=== PATIENT | male | born 1960 | race Caucasian/White ===

== ENCOUNTER 2017-08-28 22:58 | Inpatient (IN) | payer OTHER ==
--- OUTSIDE RECORDS SUMMARY | 2017-08-28 23:01 | XMS REPORT | Clinical Summary ---
:1960 Author Organization [facility] Address [address] [place] [address] Care Team Providers Name Role Phone Gigi Andino MD Primary Care Provider Allergies Active Allergy Reactions Severity Noted Date Comments Iodine 2016 Levofloxacin 2016 Morphine 2016 Current Medications Prescription Sig. Disp. Refills Start Date End Date Status furosemide (LASIX) TK 1 T PO 0 05/05/2016 Active 40 mg tablet QAM potassium chloride TK 1 T PO QD 1 05/05/2016 Active (K-DUR) 20 MEQ CR tablet tamsulosin (FLOMAX) Take 0.4 mg Active 0.4 mg by mouth capsule,extended daily. release 24hr ipratropium SPRAY 2 0 10/07/2016 Active (ATROVENT) 0.06 % SPRAYS IEN nasal spray TID levETIRAcetam TAKE 1 60 tablet 0 04/27/2017 Active (KEPPRA) 1000 MG TABLET(1000 tablet MG) BY MOUTH TWICE DAILY lamoTRIgine TAKE 1 60 tablet 0 05/29/2017 Active (LaMICtal) 25 MG TABLET(25 tablet MG) BY MOUTH TWICE DAILY lamoTRIgine TAKE 1 180 tablet 3 06/03/2017 Active (LaMICtal) 100 MG TABLET BY tablet MOUTH TWICE DAILY baclofen (LIORESAL) TAKE 1 60 tablet 2 06/30/2017 Active 10 MG tablet TABLET BY MOUTH TWICE DAILY NEEDED lamoTRIgine TAKE 1 60 tablet 4 07/28/2017 Active (LaMICtal) 25 MG TABLET BY tablet MOUTH TWICE DAILY lamoTRIgine TAKE 1 60 tablet 0 04/19/2016 10/15/2016 Discontinued (LaMICtal) 100 MG TABLET BY tablet MOUTH TWICE DAILY lamoTRIgine TAKE 1 60 tablet 0 07/02/2016 10/15/2016 Discontinued (LaMICtal) 25 MG TABLET BY tablet MOUTH TWICE DAILY donepezil (ARICEPT) Take 1 30 tablet 11 07/22/2016 02/27/2017 Discontinued 5 MG tablet tablet (5 mg total) by mouth nightly. levETIRAcetam TAKE 1 60 tablet 0 08/04/2016 09/03/2016 Discontinued (KEPPRA) 1000 MG TABLET BY tablet MOUTH TWICE DAILY baclofen (LIORESAL) TAKE 1 60 tablet 0 08/18/2016 10/15/2016 Discontinued 10 MG tablet TABLET BY MOUTH TWICE DAILY NEEDED baclofen (LIORESAL) TAKE 1 60 tablet 0 08/22/2016 09/18/2016 Discontinued 10 MG tablet TABLET BY MOUTH TWICE DAILY NEEDED levETIRAcetam TAKE 1 60 tablet 0 09/03/2016 10/01/2016 Discontinued (KEPPRA) 1000 MG TABLET BY tablet MOUTH TWICE DAILY baclofen (LIORESAL) TAKE 1 60 tablet 0 09/18/2016 10/16/2016 Discontinued 10 MG tablet TABLET BY MOUTH TWICE DAILY NEEDED levETIRAcetam TAKE 1 60 tablet 0 10/01/2016 10/15/2016 Discontinued (KEPPRA) 1000 MG TABLET BY tablet MOUTH TWICE DAILY lamoTRIgine Take 1 60 tablet 5 10/15/2016 11/10/2016 Discontinued (LaMICtal) 100 MG tablet (100 tablet mg total) by mouth 2 (two) times a day. lamoTRIgine Take 1 60 tablet 5 10/15/2016 03/20/2017 Discontinued (LaMICtal) 25 MG tablet (25 tablet mg total) by mouth 2 (two) times a day. levETIRAcetam Take 1 60 tablet 5 10/15/2016 04/02/2017 Discontinued (KEPPRA) 1000 MG tablet tablet (1,000 mg total) by mouth 2 (two) times a day. baclofen (LIORESAL) TAKE 1 60 tablet 0 10/16/2016 11/13/2016 Discontinued 10 MG tablet TABLET BY MOUTH TWICE DAILY NEEDED lamoTRIgine TAKE 1 60 tablet 0 11/11/2016 12/08/2016 Discontinued (LaMICtal) 100 MG TABLET BY tablet MOUTH TWICE DAILY baclofen (LIORESAL) TAKE 1 60 tablet 0 11/13/2016 12/10/2016 Discontinued 10 MG tablet TABLET BY MOUTH TWICE DAILY NEEDED lamoTRIgine TAKE 1 60 tablet 0 12/09/2016 01/05/2017 Discontinued (LaMICtal) 100 MG TABLET BY tablet MOUTH TWICE DAILY baclofen (LIORESAL) TAKE 1 60 tablet 0 12/10/2016 01/08/2017 Discontinued 10 MG tablet TABLET BY MOUTH TWICE DAILY NEEDED lamoTRIgine TAKE 1 60 tablet 0 01/06/2017 02/06/2017 Discontinued (LaMICtal) 100 MG TABLET BY tablet MOUTH TWICE DAILY baclofen (LIORESAL) TAKE 1 60 tablet 0 01/09/2017 02/07/2017 Discontinued 10 MG tablet TABLET BY MOUTH TWICE DAILY NEEDED lamoTRIgine TAKE 1 60 tablet 0 02/06/2017 03/07/2017 Discontinued (LaMICtal) 100 MG TABLET BY tablet MOUTH TWICE DAILY baclofen (LIORESAL) TAKE 1 60 tablet 0 02/09/2017 03/09/2017 Discontinued 10 MG tablet TABLET BY MOUTH TWICE DAILY NEEDED lamoTRIgine TAKE 1 60 tablet 0 03/07/2017 04/07/2017 Discontinued (LaMICtal) 100 MG TABLET BY tablet MOUTH TWICE DAILY baclofen (LIORESAL) TAKE 1 60 tablet 0 03/09/2017 04/06/2017 Discontinued 10 MG tablet TABLET BY MOUTH TWICE DAILY NEEDED lamoTRIgine TAKE 1 60 tablet 0 03/20/2017 05/29/2017 Discontinued (LaMICtal) 25 MG TABLET(25 tablet MG) BY MOUTH TWICE DAILY levETIRAcetam TAKE 1 60 tablet 0 04/02/2017 04/27/2017 Discontinued (KEPPRA) 1000 MG TABLET(1000 tablet MG) BY MOUTH TWICE DAILY baclofen (LIORESAL) TAKE 1 60 tablet 0 04/07/2017 05/04/2017 Discontinued 10 MG tablet TABLET BY MOUTH TWICE DAILY NEEDED lamoTRIgine TAKE 1 60 tablet 0 04/07/2017 05/05/2017 Discontinued (LaMICtal) 100 MG TABLET BY tablet MOUTH TWICE DAILY baclofen (LIORESAL) TAKE 1 60 tablet 0 05/04/2017 06/01/2017 Discontinued 10 MG tablet TABLET BY MOUTH TWICE DAILY NEEDED lamoTRIgine TAKE 1 60 tablet 0 05/05/2017 06/03/2017 Discontinued (LaMICtal) 100 MG TABLET BY tablet MOUTH TWICE DAILY baclofen (LIORESAL) TAKE 1 60 tablet 0 06/01/2017 06/30/2017 Discontinued 10 MG tablet TABLET BY MOUTH TWICE DAILY NEEDED Hospital, Clinic, or Other Ordered Dose Route Frequency Start Date End Date Status Facility Administered Medication onabotulinumtoxinA (BOTOX) 600 Units IM Once 10/15/2016 10/15/2016 Ended injection 600 UnitsIndications: Spastic hemiplegia affecting right dominant side onabotulinumtoxinA (BOTOX) 600 Units IM Once 01/14/2017 01/14/2017 Ended injection 600 UnitsIndications: Spastic hemiplegia affecting right dominant side onabotulinumtoxinA (BOTOX) 400 Units IM Once 04/15/2017 04/15/2017 Ended injection 400 UnitsIndications: Spasticity Active Problems Problem Noted Date Localization-related epilepsy 2016 Spasm of muscle 2016 Spastic hemiplegia affecting right dominant side 2016 Intracranial hemorrhage 2016 Encounters Date Type Specialty Care Team Description 08/28/2017 Emergency Emergency Medicine 08/20/2017 Orders Only Neurology Chano Miramontes, Spastic hemiplegia of MD 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 intraparenchymal hemorrhage of brain (Primary Dx) 08/13/2017 Telephone Neurology Chano Miramontes, Spastic hemiplegia of MD 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 intraparenchymal hemorrhage of brain (Primary Dx) 07/28/2017 Refill Chano Valle MD 06/30/2017 Refill Chano Valle MD 06/03/2017 Refill Chano Valle MD 06/01/2017 Refill Cahno Valle MD 05/29/2017 Refill Chano Valle MD 05/05/2017 Refill Chano Valle MD 05/04/2017 Refill Chano Valle MD 04/27/2017 Refill Chano Valle MD 04/15/2017 Procedure visit Neurology Chano Miramontes, Spasticity (Primary Dx); Spastic hemiplegia of 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 intraparenchymal hemorrhage of brain; Localization-related epilepsy; Spasm of muscle; Intracranial hemorrhage 04/07/2017 Refill Chano Valle MD 04/06/2017 Refill Neurology Chano Miramontes MD 04/02/2017 Refill Neurology Chano Miramontes MD 03/20/2017 Refill Neurology Chano Miramontes MD 03/09/2017 Refill Neurology Chano Miramontes MD 03/07/2017 Refill Neurology Chano Miramontes MD 02/27/2017 Telephone Neurology Oksana Reynoso MA 02/07/2017 Refill Neurology Chano Miramontes MD 02/06/2017 Refill Neurology Chano Miramontes MD 01/14/2017 Procedure visit Neurology Chano Miramontes, Spastic hemiplegia affecting right dominant side (Primary Dx); Localization-related epilepsy; Spasm of muscle; Intracranial hemorrhage 01/08/2017 Refill Neurology Chano Miramontes MD 01/05/2017 Refill Neurology Chano Miramontes MD 12/10/2016 Refill Neurology Chano Miramontes MD 12/08/2016 Refill Neurology Chano Miramontes MD 11/13/2016 Refill Neurology Chano Miramontes MD 11/10/2016 Refill Neurology Chano Miramontes MD 10/16/2016 Refill Neurology Chano Miramontes MD 10/15/2016 Procedure visit Neurology Chano Miramontes, Spastic hemiplegia affecting right dominant side (Primary Dx); Spasm of muscle; Intracranial hemorrhage; Localization-related epilepsy 10/01/2016 Refill Neurology Chano Miramontes MD 09/18/2016 Refill Neurology Chano Miramontes MD 09/03/2016 Refill Neurology Chano Miramontes MD after 08/27/2016 Family History Medical History Relation Name Comments Diabetes Mother Relation Name Status Comments Mother Social History Tobacco Use Types Packs/Day Years Used Date Former Smoker Cigarettes Quit: 2005 Alcohol Use Drinks/Week oz/Week Comments No Sex Assigned at Date Recorded Not on file Last Filed Vital Signs Vital Sign Reading Time Taken Blood Pressure 116/70 08/28/2017 6:32 PM CDT Pulse 107 08/28/2017 6:32 PM CDT Temperature 37.2 C (99 F) 08/28/2017 6:32 PM CDT Respiratory Rate 20 08/28/2017 6:32 PM CDT Oxygen Saturation 95% 08/28/2017 6:32 PM CDT Inhaled Oxygen Concentration - - Weight - - Height 182.9 cm (6') 08/28/2017 6:28 PM CDT Body Mass Index - - Plan of Treatment Health Maintenance Due Date Last Done Comments COLONOSCOPY 2008 INFLUENZA VACCINE 12/31/2016 Procedures Procedure Name Priority Date/Time Associated Diagnosis Comments BOTULINUM TOXIN Routine 04/15/2017 3:36 PM Spasticity INJECTION DBA BOTULINUM TOXIN Routine 01/14/2017 10:10 AM Spastic hemiplegia INJECTION CDT affecting right dominant side BOTULINUM TOXIN Routine 10/15/2016 10:33 AM Spastic hemiplegia INJECTION CDT affecting right dominant side after 08/27/2016 Results Toxin Injection (04/15/2017 3:36 PM)Toxin Injection (01/14/2017 10:10 AM)Toxin Injection (10/15/2016 10:33 AM)after 08/27/2016 Insurance Payer Benefit Plan / Group Subscriber ID Type Phone Address AETNA AETNA HMO,POS,EPO, MC/EC xxxxxxxxxx HMO [phone] [place] [address]
[2017-08-29 00:32] LABS: Absolute Lymphocytes (CBC) 1.1 K/uL (0.7-4.9); Absolute Monocytes 1.7 K/uL (0.1-1.3); Absolute Neutrophil 14.5 K/uL (1.8-8.0); Basophils % 0.6 % (0-1.3); Eosinophils % 0.1 % (0-4.4); Hematocrit 50.2 % (39.6-49.0); Lymphocytes % 6.5 % (15.3-44.8); MCV 84.3 fL (80-100); MPV 9.9 fL (7.6-11.3); Monocytes % 9.6 % (3.3-12.3); RBC Red Blood Cell Count 5.95 M/uL (4.33-5.43)
[2017-08-29 00:38] LABS: Glomerular Filtration Rate > 60 mL/min (>60)
[2017-08-29 00:41] LABS: Bicarbonate 25 mEq/L (21-31); Glucose Level 131 mg/dL (65-120); Lipase 16 U/L (22-51); Potassium 3.4 mEq/L (3.6-5.0); Sodium Level 135 mEq/L (135-145)
[2017-08-29 00:48] LABS: ALT/SGPT 17 IU/L (10-60); AST/SGOT 18 IU/L (10-42); Albumin 4.3 g/dL (3.2-5.5); Alkaline Phosphatase 44 IU/L (42-121); Amylase Level 35 U/L (28-100); BUN Blood Urea Nitrogen 12 mg/dL (6-20); Bilirubin Direct 0.4 mg/dL (0-0.2); Bilirubin Total 2.1 mg/dL (0.3-1.2); Glomerular Filtration Rate > 90 mL/min (=/>90); Protein, Total 7.4 g/dL (6.0-8.3)
[2017-08-29] MEDS ORDERED: NA CHLORIDE 0.9% 1,000 ML ONE (01:35)
[2017-08-29 01:59] LABS: Blood Morphology Comment NOT SEEN (NOT SEEN); Platelet Estimate ADEQ
--- NOTE | 2017-08-29 02:18 | EDPHYS ---
Physician Documentation [facility] Name: Javier Barragan Sr Age: 57 yrs Sex: Male : 1960 Arrival Date: 08/28/2017 Time: 23:02 Bed 28 Private MD: Gigi Andino V ED Physician Ori Faulkner HPI: 08/28 23:20 This 57 yrs old Male presents to ER via Wheelchair with complaints of cp Abdominal Pain. 23:20 The patient presents with abdominal pain that is diffuse. Onset: The symptoms/episode cp began/occurred at an unknown time. The symptoms do not radiate. Associated signs and symptoms: Pertinent negatives: blood in stools, chest pain, fever, vomiting. The patient has been recently seen by a physician: Dr. Andino with similar presenting complaints, and apparently given a diagnosis of gallstones, CT scan was done, and was sent to the [facility] Emergency Department for further evaluation. Historical: - Allergies: 23:12 Cephalexin Monohydrate; bb 23:12 Iodine; bb 23:12 Levofloxacin; bb 23:12 Morphine; bb - Home Meds: 23:12 baclofen 10 mg Oral tab 1 tab twice a day [Active]; Dexilant 30 mg Oral CpDB 1 cap once bb daily [Active]; ipratropium bromide 0.06 % nasal spry [Active]; lamotrigine 25 mg Oral TChD 1 tab 2 times per day [Active]; levetiracetam 1,000 mg Oral tab 1 tab every 12 hours [Active]; potassium chloride 20 mEq Oral TbER 1 tab once daily [Active]; - PMHx: 23:12 CVA; Hernia; Seizures; bb - Immunization history:: Pneumococcal vaccine status is unknown, Flu vaccine status is unknown. - Social history:: Smoking status: Patient/guardian denies using tobacco. ROS: 23:25 Constitutional: Negative for body aches, chills, fever, poor PO intake. cp 23:25 Eyes: Negative for injury, pain, redness, and discharge. cp 23:25 ENT: Negative for drainage from ear(s), ear pain, sore throat, difficulty swallowing, difficulty handling secretions. 23:25 Cardiovascular: Negative for chest pain, edema, palpitations. 23:25 Respiratory: Negative for cough, shortness of breath, wheezing. 23:25 Abdomen/GI: Positive for abdominal pain, Negative for vomiting, diarrhea, constipation, black/tarry stool, rectal bleeding. 23:25 Back: Negative for pain at rest, pain with movement, radiated pain. 23:25 Skin: Negative for cellulitis, rash. 23:25 Neuro: Negative for altered mental status, headache, weakness. 23:25 All other systems are negative. Exam: 23:33 Constitutional: The patient appears in no acute distress, alert, awake, cp non-diaphoretic, non-toxic, well developed, well nourished, obese. 23:33 Head/Face: Normocephalic, atraumatic. cp 23:33 Eyes: Periorbital structures: appear normal, Pupils: equal, round, and reactive to cp light and accomodation, Conjunctiva: normal, no exudate, no injection, Sclera: no appreciated abnormality, Lids and lashes: appear normal, bilaterally. 23:33 ENT: External ear(s): are unremarkable, Ear canal(s): are normal, clear, TM's: cp dullness, is not appreciated, bilaterally, Nose: is normal, Mouth: Lips: moist, Oral mucosa: pink and intact, moist, Posterior pharynx: is normal, airway is patent, no erythema, no exudate, Voice: is normal. 23:33 Neck: External neck: is normal, ROM/movement: is normal, is supple, without pain, no range of motions limitations, no meningismus, no nuchal rigidity. 23:33 Chest/axilla: Inspection: normal, Palpation: is normal, no crepitus, no tenderness. 23:33 Cardiovascular: Rate: tachycardic, Rhythm: regular, Pulses: Pulses are 2+ in right radial artery and left radial artery. JVD: is not appreciated. 23:33 Respiratory: the patient does not display signs of respiratory distress, Respirations: normal, no use of accessory muscles, no retractions, no splinting, no tachypnea, labored breathing, is not present, Breath sounds: are clear throughout, no decreased breath sounds, no stridor, no wheezing. 23:33 Abdomen/GI: Inspection: obese Bowel sounds: active, all quadrants, Palpation: soft, in all quadrants, mild abdominal tenderness, in all quadrants, rebound tenderness, is not appreciated, voluntary guarding, is not appreciated, involuntary guarding, is not appreciated. 23:33 Back: CVA tenderness, is absent. 23:33 Skin: cellulitis, is not appreciated, no rash present. 08/29 00:35 ECG was reviewed by the Attending Physician. Vital Signs: 08/28 23:12 BP 116 / 79; Pulse 103; Resp 18 S; Temp 99.7(O); Pulse Ox 96% on R/A; Weight 117.93 kg bb (R); Height 6 ft. 0 in. (182.88 cm) (R); Pain 9/10; 08/29 01:21 BP 136 / 77; Pulse 99; Resp 17; Pulse Ox 94% on R/A; rk2 03:37 BP 130 / 80; Pulse 98; Resp 17; Pulse Ox 94% on R/A; rk2 08/28 23:12 Body Mass Index 35.26 (117.93 kg, 182.88 cm) bb MDM: 08/28 23:17 Patient medically screened. 08/29 00:00 Differential diagnosis: cholecystitis, Cholelithiasis, diverticulitis, gastritis, cp pancreatitis, Peptic Ulcer Disease, Perf. Duodenal Ulcer, Perf. Gastric Ulcer, Peritonitis, Ureterolithiasis, urinary tract infection. 02:15 Data reviewed: vital signs, nurses notes, lab test result(s), EKG, radiologic studies, cp ultrasound. 02:15 Test interpretation: by ED physician or midlevel provider: ECG. Response to treatment: cp the patient's symptoms have mildly improved after treatment. 08/28 23:30 Order name: Amylase, Serum; Complete Time: 00:51 08/28 23:30 Order name: Basic Metabolic Panel; Complete Time: 00:51 08/29 00:43 Interpretation: Normal except: K 3.4; CL 99; GLUC 131. 08/28 23:30 Order name: CBC with Diff; Complete Time: 02:11 08/29 02:11 Interpretation: Normal except: WBC 17.4; RBC 5.95; HCT 50.2; BLESSING% 83.2; LYM% 6.5; NEUT cp A 14.5. 08/28 23:30 Order name: Creatinine for Radiology; Complete Time: 00:39 08/29 00:39 Interpretation: Reviewed. 08/28 23:30 Order name: Hepatic Function; Complete Time: 00:51 cp 08/29 00:51 Interpretation: Normal except: BILIT 2.1; BILID 0.4. 08/28 23:30 Order name: Lipase; Complete Time: 00:51 cp 08/29 00:43 Interpretation: LIP 16; Reviewed. 08/28 23:24 Order name: US Abdomen Limited: RUQ 08/28 23:30 Order name: Urine Microscopic Only 08/29 00:48 Order name: CXR XRAY 08/29 00:55 Order name: Manual Differential; Complete Time: 02:11 EDMS 08/29 02:11 Interpretation: Normal except: BANDS [F] 4; LYM 4. 08/29 02:46 Order name: Blood Culture Adult (2) 08/28 23:30 Order name: IV Saline Lock; Complete Time: 00:09 08/28 23:30 Order name: Labs collected and sent; Complete Time: 00:09 08/28 23:30 Order name: Urine Dipstick-Ancillary (obtain specimen) 08/28 23:30 Order name: EKG; Complete Time: 23:30 08/28 23:30 Order name: EKG - Nurse/Tech; Complete Time: 00:35 cp 08/29 00:47 Order name: NPO; Complete Time: 00:48 cp 08/29 02:20 Order name: CONS Physician Consult EDMS EC:35 Rate is 99 beats/min. Rhythm is regular. VT interval is normal. QRS interval is normal. cp QT interval is normal. No ST changes noted. Interpreted by me. Reviewed by me. Administered Medications: 01:20 Drug: NS 0.9% 500 ml Route: IV; Rate: bolus; Site: left antecubital; rk2 01:50 Follow up: IV Status: Completed infusion rk2 01:20 Drug: NS 0.9% 1000 ml Route: IV; Rate: 100 ml/hr; Site: left antecubital; rk2 03:35 Follow up: Response: No adverse reaction; IV Status: Completed infusion rk2 02:36 Drug: metroNIDAZOLE 500 mg Volume: 100 ml; Route: IVPB; Infused Over: 30 mins; Site: rk2 left antecubital; 03:10 Follow up: Response: No adverse reaction; IV Status: Completed infusion rk2 03:30 Drug: Zosyn 3.375 grams Route: IVPB; Infused Over: 60 mins; Site: left antecubital; rk2 03:39 Follow up: Response: No adverse reaction; IV Status: Infusion continued rk2 03:39 Not Given (Not available, receiving nurse notified. ): Potassium Chloride 10 mEq IV at rk2 calculated rate once; administer over 1-2 hours Disposition: 15:58 Co-signature as Attending Physician, Ori Faulkner MD I agree with the assessment and [facility] plan of care. Disposition: 08/29/17 02:17 Hospitalization ordered by Gigi Andino for Inpatient Admission. Preliminary diagnosis are Unspecified abdominal pain, Cholecystitis. - Bed requested for Telemetry/MedSurg (Inpatient). - Status is Inpatient Admission. rk2 - Condition is Stable. - Problem is new. - Symptoms have improved. UTI on Admission? No Signatures: Dispatcher [employer] EDMS Ophelia Arambula RN RN mw Anderson, Corey, MD MD cha Ballard, Brenda RN Ori Osullivan PA PA cp Kidder, Rhonda, RN RN rk2
--- NOTE | 2017-08-29 02:18 | ER ---
Nurse's Notes [facility] Name: Javier Barragan Sr Age: 57 yrs Sex: Male : 1960 Arrival Date: 08/28/2017 Time: 23:02 Bed 28 Private MD: Gigi Andino V Diagnosis: Unspecified abdominal pain;Cholecystitis Presentation: 08/28 23:10 Presenting complaint: Patient states: he had CT scan today and was told he had bb gallstones and needed to have surgery was sent by Dr Andino. Transition of care: patient was not received from another setting of care. Onset of symptoms was August 26, 2017. Care prior to arrival: None. 23:10 Method Of Arrival: Wheelchair bb 23:10 Acuity: RUI 3 bb Historical: - Allergies: 23:12 Cephalexin Monohydrate; bb 23:12 Iodine; bb 23:12 Levofloxacin; bb 23:12 Morphine; bb - Home Meds: 23:12 baclofen 10 mg Oral tab 1 tab twice a day [Active]; Dexilant 30 mg Oral CpDB 1 cap once bb daily [Active]; ipratropium bromide 0.06 % nasal spry [Active]; lamotrigine 25 mg Oral TChD 1 tab 2 times per day [Active]; levetiracetam 1,000 mg Oral tab 1 tab every 12 hours [Active]; potassium chloride 20 mEq Oral TbER 1 tab once daily [Active]; - PMHx: 23:12 CVA; Hernia; Seizures; bb - Immunization history:: Pneumococcal vaccine status is unknown, Flu vaccine status is unknown. - Social history:: Smoking status: Patient/guardian denies using tobacco. Screenin:30 Abuse screen: Denies threats or abuse. rk2 23:30 Nutritional screening: No deficits noted. Tuberculosis screening: No symptoms or risk rk2 factors identified. Fall Risk Secondary diagnosis (15 points) CVA. Assessment: 23:29 Reassessment: US being completed \T\ bedside. rk2 23:30 General: Appears in no apparent distress. well developed, well nourished, Behavior is rk2 calm, cooperative. 23:30 Pain:. Neuro: Level of Consciousness is alert, obeys commands, Oriented to person, rk2 place, situation. Respiratory: Airway is patent Respiratory effort is even, unlabored, Respiratory pattern is regular, symmetrical. GI: Bowel sounds present X 4 quads. Abd is non tender hernia. Derm: Skin is pink, warm \T\ dry. 08/29 00:30 Reassessment: Pt. resting in room, family \T\ bedside... pt. appears to be in no obvious rk2 distress. No needs voiced. 01:31 Reassessment: Pt. appears to be sleeping in room \T\ this time, no obvious distress... rk2 family \T\ bedside. No needs voiced. 02:03 Reassessment: Several attempts at obtaining urine sample... pt. unable to provide \T\ rk2 this time. Provider aware. 03:36 Reassessment: Called report to debra Gonzalez RN. Pt. transported to room by 2 stretcher, by tech. \T\ bedside. Vital Signs: 08/28 23:12 BP 116 / 79; Pulse 103; Resp 18 S; Temp 99.7(O); Pulse Ox 96% on R/A; Weight 117.93 kg bb (R); Height 6 ft. 0 in. (182.88 cm) (R); Pain 9/10; 08/29 01:21 BP 136 / 77; Pulse 99; Resp 17; Pulse Ox 94% on R/A; rk2 03:37 BP 130 / 80; Pulse 98; Resp 17; Pulse Ox 94% on R/A; rk2 08/28 23:12 Body Mass Index 35.26 (117.93 kg, 182.88 cm) bb ED Course: 08/28 23:02 Patient arrived in ED. es 23:02 Gigi Andino MD is Private Physician. es 23:11 Triage completed. bb 23:12 Arm band placed on left wrist. Patient placed in an exam room, on a stretcher. bb 23:16 Ori Krause PA is PHCP. cp 23:16 Ori Faulkner MD is Attending Physician. cp 23:28 Ting Marx, KEL is Primary Nurse. rk2 23:29 US Abdomen Limited: RUQ Sent. rk2 23:30 Patient has correct armband on for positive identification. Bed in low position. Call rk2 light in reach. Side rails up X2. 23:44 US Abdomen Limited: RUQ In Process Unspecified. EDMS 08/29 01:23 CXR XRAY In Process Unspecified. EDMS 02:16 Gigi Andino MD is Hospitalizing Provider. cp 03:36 Blood Culture Adult (2) Sent. rk2 03:38 No provider procedures requiring assistance completed. Patient admitted, IV remains in rk2 place. Administered Medications: 01:20 Drug: NS 0.9% 500 ml Route: IV; Rate: bolus; Site: left antecubital; rk2 01:50 Follow up: IV Status: Completed infusion rk2 01:20 Drug: NS 0.9% 1000 ml Route: IV; Rate: 100 ml/hr; Site: left antecubital; rk2 03:35 Follow up: Response: No adverse reaction; IV Status: Completed infusion rk2 02:36 Drug: metroNIDAZOLE 500 mg Volume: 100 ml; Route: IVPB; Infused Over: 30 mins; Site: rk2 left antecubital; 03:10 Follow up: Response: No adverse reaction; IV Status: Completed infusion rk2 03:30 Drug: Zosyn 3.375 grams Route: IVPB; Infused Over: 60 mins; Site: left antecubital; rk2 03:39 Follow up: Response: No adverse reaction; IV Status: Infusion continued rk2 03:39 Not Given (Not available, receiving nurse notified. ): Potassium Chloride 10 mEq IV at rk2 calculated rate once; administer over 1-2 hours Outcome: 02:17 Decision to Hospitalize by Provider. cp 03:38 Admitted to Tele accompanied by tech, via stretcher. rk2 03:38 Condition: good 03:38 Instructed on the need for admit. 03:40 Patient left the ED. rk2 Signatures: Dispatcher [employer] Judith Santoyo Brenda, RN RN Ori Oliveros PA PA cp Kidder, Rhonda, RN RN rk2
[2017-08-29] MEDS ORDERED: METRONIDAZOLE 500mg IVPB 500 MG/100 ML BAG IV ONE (02:47)
[2017-08-29] MEDS ORDERED: PIPER/TAZO/NS 3.375gm 3.375 GM/100 ML BAG ONE (02:47)
[2017-08-29] MEDS ORDERED: KCL 20 MEQ/100 mL IVPB 0 MEQ/0 ML BAG IV ONE (03:43)
[2017-08-29] MEDS: NACHLORIDE 0.45% 1,000 ML IV SCH (04:00)
[2017-08-29] MEDS ORDERED: D50W 25 GM/50 ML SYRINGE IV PRN (04:04)
[2017-08-29] MEDS ORDERED: GLUCAGON 1 MG/VIAL IM PRN (04:04)
[2017-08-29] MEDS ORDERED: NACHLORIDE 0.45% 1,000 ML IV ONE (04:06)
[2017-08-29] MEDS ORDERED: POLYETHYL GLY 3350 17 GM/DOSE PO PRN (04:08)
[2017-08-29] MEDS ORDERED: LOPERAMIDE HCL 2 MG CAPSULE PO PRN (04:08)
[2017-08-29] MEDS ORDERED: DIPHENHYDRAMINE 25 MG TAB/CAP PO PRN (04:08)
[2017-08-29] MEDS ORDERED: ONDANSETRON 4 MG/2 ML VIAL IV PRN (04:08)
[2017-08-29] MEDS ORDERED: ONDANSETRON 4 MG (ODT) TAB PO PRN (04:10)
[2017-08-29 04:36] LABS: Urine Appearance CLOUDY; Urine Bilirubin NEGATIVE (NEG); Urine Blood NEGATIVE (NEG); Urine Color DK YELLOW; Urine Glucose NEGATIVE (NEG); Urine Protein NEGATIVE (NEG); Urine Urobilinogen 0.2 mg/dL (0.2-1.0)
[2017-08-29] MEDS: METRONIDAZOLE 500mg IVPB 500 MG/100 ML BAG IV SCH ×2 (04:43→06:11)
[2017-08-29 05:08] LABS: UR CREAT 150.8 mg/dL; UR MICROALBUMIN 3.1 mg/dL (< 1.9)
[2017-08-29] MEDS: INSULIN -REGULAR HUMAN 50 UNIT/0.5 ML ML SQ SCH ×3 (05:11→18:00)
[2017-08-29 05:13] LABS: Urine Bacteria <20 /HPF (NONE SEEN); Urine Culture Reflex Order NOT NEEDED; Urine Mucus 1+ /HPF (NONE SEEN); Urine RBC <5 /HPF (NONE SEEN)
[2017-08-29 05:17] LABS: Absolute Lymphocytes (CBC) 1.2 K/uL (0.7-4.9); Absolute Monocytes 1.5 K/uL (0.1-1.3); Absolute Neutrophil 13.6 K/uL (1.8-8.0); Basophils % 0.7 % (0-1.3); Eosinophils % 0.1 % (0-4.4); Hematocrit 47.7 % (39.6-49.0); Lymphocytes % 7.4 % (15.3-44.8); MCH 28.4 pg (27.0-35.0); MCV 84.4 fL (80-100); MPV 9.5 fL (7.6-11.3); Monocytes % 9.1 % (3.3-12.3); RBC Red Blood Cell Count 5.66 M/uL (4.33-5.43)
[2017-08-29 05:25] LABS: Protime INR 1.33
[2017-08-29 06:21] LABS: BUN Blood Urea Nitrogen 12 mg/dL (6-20); Bicarbonate 27 mEq/L (21-31); Glomerular Filtration Rate > 90 mL/min (=/>90); Glucose Level 122 mg/dL (65-120); Phosphorus 2.7 mg/dL (2.5-4.3); Potassium 3.7 mEq/L (3.6-5.0); Sodium Level 134 mEq/L (135-145); Thyroid Stimulating Hormone 1.39 uIU/mL (0.34-5.60)
[2017-08-29] MEDS ORDERED: KCL 20 MEQ/100 mL IVPB 20 MEQ/100 ML BAG IV SCH (08:00)
--- NOTE | 2017-08-29 08:25 | RAD REPORT ---
EXAM DESCRIPTION: US - Abdomen Exam Limited - 08/28/2017 11:45 pm CLINICAL HISTORY: Right upper quadrant pain, abdominal pain, abnormal CT study COMPARISON: CT exam August 28 FINDINGS: Multiple gallstones are identified. These are unknown finding in this patient. Wall is upp er normal. No measurable pericholecystic fluid. The edema or stranding in the adjacent fat is difficu lt to appreciate on sonography. No biliary tree dilatation. No solid mass of the gallbladder wall. No common duct stone or biliary tree dilatation identified. IMPRESSION: Multi stone cholelithiasis, known finding in this patient, with borderline gallbladder w all thickening. No duct stone or biliary tree dilatation. Acute cholecystitis remains a possibility and needs correlation with clinical presentation. The abnor mal CT findings are only along part of the gallbladder which would be an atypical presentation in acu te cholecystitis. As noted on the CT study duodenitis or duodenal ulceration changes would be a consi deration.
--- NOTE | 2017-08-29 08:26 | RAD REPORT ---
EXAM DESCRIPTION: RAD - Chest Single View - 08/29/2017 1:23 am CLINICAL HISTORY: Preop examination, cholecystitis versus duodenitis/duodenal ulcer COMPARISON: Chest exam January 2017 TECHNIQUE: AP portable chest image was obtained 0110 hours . FINDINGS: No mass, consolidation or failure. Lung markings are prominent, accentuated by shallow ins piration. A minimal amount of interstitial edema would be possible. Significant failure or volume ove rload are not suspected. Trachea is midline. No measurable pleural effusion and no pneumothorax. No g ross bony abnormality seen. No acute aortic findings suspected. IMPRESSION: Shallow inspiration exam showing no consolidation, mass or significant failure. Baseline interstitial pattern is accentuated by the inspiratory effort. Minimal interstitial edema or infiltrate cannot be excluded.
[2017-08-29] MEDS ORDERED: Ciprofloxacin 200mg IV 200 MG/100 ML IV.SOLN. IV SCH (09:00)
[2017-08-29 10:58] LABS: A1c Component 0.58 mg/dL; Hemoglobin A1c 5.3 % (4-6.0)
[2017-08-29] MEDS ORDERED: SODIUM CHLORIDE 0.9% 10ML INJ IV PRN (11:41)
[2017-08-29] MEDS ORDERED: FENTANYL CITR 100 MCG/2 ML IV PRN (12:42)
--- NOTE | 2017-08-29 13:13 | P.PN ---
Subjective Date of Service: 08/29/17 Chief Complaint: ABD PAIN Subjective: No new changes MR. REES CAME TO OFFICE YESTERDAY AM. I ORDERE STAT CT SCAN HE HAS LARGE ABD HERNIA AND PAIN IN RUQ. HE HAS CHOLECYSTITIS. I ASKED HIM TO BE ADMITTED. HE INSTEAD TOLD HIS TO TAKE HIM TO [facility]. HE DID NOT LIKE THE [facility] FOR WAITING AND WAS NOT CLEAN PER HIM. HE HAD HIS DROVE HIM BACK HERE AND ER PA CALLED ME AT 1:30 IN AM FOR ADMISSION. Review of Systems 10-point ROS is otherwise unremarkable Neurological: Weakness (HEMPLEGIC ON RIGHT SIDE SINCE CVA YEARS AGO.) Physical Examination - Vital Signs Temperature: 99.8 F Blood Pressure: 98/54 Pulse: 100 Respirations: 16 Pulse Ox (%): 94 - Physical Exam General: Alert, Mild distress, Obese HEENT: Atraumatic, PERRLA, EOMI Neck: Supple, JVD not distended Respiratory: Clear to auscultation bilaterally, Normal air movement Cardiovascular: Regular rate/rhythm, Normal S1 S2 Gastrointestinal: Hyperactive, Distended (CHRONIC, LARGE MULTIPLE HERNIA.) Musculoskeletal: No tenderness Integumentary: No rashes Neurological: Normal speech, Normal tone, Normal affect Lymphatics: No axilla or inguinal lymphadenopathy - Studies Laboratory Data (last 24 hrs) 08/28/17 23:59: Creatinine 0.83 08/28/17 23:59: WBC 17.4 H D, Hgb 16.7, Hct 50.2 H, Plt Count 173 08/28/17 23:59: Sodium 135, Potassium 3.4 L, BUN 12, Creatinine 0.86, Glucose 131 H, Total Bilirubin 2.1 H, AST 18, ALT 17, Alkaline Phosphatase 44, Amylase 35, Lipase 16 L Medications List Reviewed: Yes Assessment And Plan - Current Problems (Diagnosis) (1) Acute cholecystitis Current Visit: Yes Status: Acute Plan: HE WILL NEED SURGERY DR. TURCIOS HAS ALSO BEEN CALLED IN RISK IS MODERATE WITH SCARRING AROUND HERNIA HE AND UNDERSTAND IV ZOSYN IV FENTANYL. DVT PX (2) Cholelithiases Current Visit: Yes Status: Acute (3) Hemiplegia following CVA (cerebrovascular accident) Current Visit: Yes Status: Chronic Plan: OLD UNCHANGED. WHEELCHAIR BOUND (4) Hydatid cyst, hepatic Current Visit: Yes Status: Resolved Plan: HISTORY OF.
[2017-08-29] MEDS: PIPER/TAZO/NS 3.375gm 3.375 GM/100 ML BAG IVPB SCH ×2 (14:05→18:23)
--- NOTE | 2017-08-29 16:09 | CON ---
Date of Consultation: 08/29/2017 Reason For Consultation: Abdominal pain. Brief History Of Present Illness: The patient is a 57-year-old, male, who presents to the hospital with approximately 2-3 days of abdominal pain, which has been getting progressively worse. He feels it is likely related to his hernia. He has had a hernia for several years. His last hernia repair was in 2007. However, he is unsure of the exact issue. He states he has a history of gallst ones, which were treated nonoperatively in the past. His pain is predominantly over the entire abdom en in the left lower quadrant, left upper quadrant, predominantly and right lower quadrant as well as right upper quadrant. The midline is not as tender to palpation. The epigastrium is minimally tend er. He has had no nausea or vomiting. He has had constipation for which he took magnesium citrate a nd gave him diarrhea. He denies any radiation. There was no blood in his stools. He had no chest p ain. He denies fever or chills. However, he does say he has had increased weakness over the past 2- 3 days. Past Medical History: Significant for CVA and seizure disorder and multiple hernias. Past Surgical History: He states he has had he believes 8 abdominal hernia surgeries and currently s till has another recurrence of his abdominal hernia. Allergies: TO CEPHALEXIN, IODINE, LEVAQUIN, MORPHINE. Home Medications: Include baclofen, Dexilant, Atrovent, lamotrigine, levetiracetam, KCl. Social History: He denies alcohol or recreational drug use. Review of Systems: A 10-point review of systems other than HPI, denies. Family History: Noncontributory. Physical Examination: Vital Signs: At the time of my examination, his BMI is 33.4. His blood pressure is 103/64, his puls e is 101, respiratory rate 16, temperature 99.6. General: He is awake, alert, oriented. Psychiatric: He is appropriate and conversive. HEENT: His sclerae are anicteric. His mucous membranes are moist. His dentition is poor. His orop harynx is otherwise clear. NECK: No JVD. Neurologic: He has right-sided hemiparesis/paralysis residual from his CVA with a contracture of his right upper extremity and hand. Chest: Normal expansion and excursion. Cardiovascular: He is tachycardic. Pulmonary: Clear to auscultation bilaterally. Abdomen: Soft with positive right lower quadrant and right-sided abdominal pain as well as left-side d abdominal pain. The tenderness is greatest in the right lower quadrant and left lower quadrant. Bebeto cooney has a large complex ventral midline incisional recurrent hernia with a wide neck. It is irreducibl e as the neck defect is quite large. Well-healed scars are evident. There are no peritoneal signs. No focal peritonitis. He has a negative Gurrola sign during the time examination. He has no CVA ang le tenderness. Skin: Warm and dry otherwise. Laboratory Data: Reveals a white blood count of 16.4, down from 17.4 yesterday. His hemoglobin 16.1 over hematocrit of 47.7. His neutrophils are 82%. His platelet count is 153. His PT is 15.7, INR 1.33, PTT is 28.5. His sodium 134, potassium 3.7, chloride 99, carbon dioxide 27, BUN 12, creatinine 0.8, glucose is 122. His A1c is 5.3. Phosphorus is 2.7, calcium is 8.5. His UA was essentially negative. He had imaging performed, which included an abdominal ultrasound on 08/28, which was officially read as multi-stone cholelithiasis. This is a known finding in this pat ient with borderline gallbladder wall thickening. No duct stone or biliary tree dilatation. Acute c holecystitis remains a possibility and needs correlation with clinical presentation. The abnormal CT findings are only along the part of the gallbladder, which could be an atypical presentation in acut e cholecystitis, as noted on the CT study duodenitis or duodenal ulceration changes would be a consid eration. CT scan of the abdomen pelvis was performed on 08/28 as well, which was officially read as gallbladder distended. Several gallstones are again identified. There is edematous/inflammatory str anding adjacent to the gallbladder. No biliary tree dilatation. No gastric wall dilatation, gastric wall thickening, oral contrast reached the right side of the colon. The appendix is unremarkable. The wall of the duodenal bulb are mildly prominent. The wall abuts the gallbladder where there is an edematous inflammatory stranding. No free fluid collection. No extraluminal air. A large 15 cm ve ntral hernia is present. This is complex with stranding in several small compartments of the herniat ed fat. Neck is approximately 8 cm of hernia, contains loops of small bowel in the right side of the transverse colon. There are postsurgical changes along the inferior aspect of this hernia from prio r repair. More inferiorly there is an additional hernia in the more periumbilical location. That is approximately 9 cm in diameter with a 6 cm neck contains loops of small bowel. Neither hernia site shows wall thickening, edema, or acute component. No mass or bulky lymphadenopathy. No mental thick ening. Assessment And Plan: This is a 57-year-old male who comes in with abdominal pain, possibly a duodeni tis-type picture or enteritis-type picture. However, given his history of gallstones and wall thicke minerva, although the presentation would be atypical, cholecystitis is not ruled out at this time. I recommend: 1.IV fluid hydration. 2.N.p.o. status. 3.Zosyn 3.375 IV q.6. 4.Serial exams. 5.PPI therapy. 6.GI consultation. 7.I have explained the risks, benefits, and alternatives of initial nonoperative management of this condition and the patient agrees to proceed as indicated. I will follow him closely. If his clinica l condition deteriorates or he shows not improvement or his condition change, we will consider surgic al intervention at that time. Thank you for interesting consult. LIV/SANTINO Voice ID: [id number] Report ID: [id number]
[2017-08-29] MEDS: PANTOPRAZOLE 40 MG INJ IVP SCH (20:20)
[2017-08-29] MEDS: ACETAMINOPHEN 325 MG TABLET PO PRN (20:21)
[2017-08-30] MEDS: PIPER/TAZO/NS 3.375gm 3.375 GM/100 ML BAG IVPB SCH ×3 (00:28→16:08)
[2017-08-30] MEDS: ACETAMINOPHEN 325 MG TABLET PO PRN (04:30)
[2017-08-30 04:54] LABS: Absolute Lymphocytes (CBC) 1.2 K/uL (0.7-4.9); Absolute Monocytes 1.3 K/uL (0.1-1.3); Absolute Neutrophil 14.5 K/uL (1.8-8.0); Basophils % 0.5 % (0-1.3); Eosinophils % 0.4 % (0-4.4); Hematocrit 46.8 % (39.6-49.0); Lymphocytes % 6.7 % (15.3-44.8); MCH 28.8 pg (27.0-35.0); MCV 85.3 fL (80-100); MPV 9.2 fL (7.6-11.3); Monocytes % 7.7 % (3.3-12.3); RBC Red Blood Cell Count 5.49 M/uL (4.33-5.43)
[2017-08-30 05:08] LABS: BUN Blood Urea Nitrogen 12 mg/dL (6-20); Bicarbonate 26 mEq/L (21-31); Glomerular Filtration Rate > 90 mL/min (=/>90); Glucose Level 112 mg/dL (65-120); Sodium Level 139 mEq/L (135-145)
[2017-08-30] MEDS: INSULIN -REGULAR HUMAN 50 UNIT/0.5 ML ML SQ SCH ×4 (06:00→17:41)
[2017-08-30] MEDS: PANTOPRAZOLE 40 MG INJ IVP SCH ×2 (10:53→21:36)
[2017-08-30] MEDS: levETIRAcetam 500 MG TAB PO SCH ×2 (10:53→21:00)
[2017-08-30] MEDS ORDERED: LIDOCAINE 2% MPF 5 ML VIAL ONE (11:36)
[2017-08-30] MEDS ORDERED: ROCURONIUM 50 MG/5 ML VIAL IV ONE (11:36)
[2017-08-30] MEDS ORDERED: PROPOFOL 200 MG/20 ML VIAL IV ONE (11:36)
[2017-08-30] MEDS ORDERED: FENTANYL CITR 100 MCG/2 ML ONE ×2 (11:37→13:31)
[2017-08-30] MEDS ORDERED: BUPIVACA 0.25%/EPI 0.0005%/PF 30 ML VIAL ONE (11:59)
--- NOTE | 2017-08-30 12:10 | P.PN ---
Subjective Date of Service: 08/30/17 Chief Complaint: GB SURGERY Subjective: No C/O voiced MR. REES CAME TO OFFICE YESTERDAY AM. I ORDERE STAT CT SCAN HE HAS LARGE ABD HERNIA AND PAIN IN RUQ. HE HAS CHOLECYSTITIS. I ASKED HIM TO BE ADMITTED. HE INSTEAD TOLD HIS TO TAKE HIM TO [facility]. HE DID NOT LIKE THE [facility] FOR WAITING AND WAS NOT CLEAN PER HIM. HE HAD HIS DROVE HIM BACK HERE AND ER PA CALLED ME AT 1:30 IN AM FOR ADMISSION. MR REES IS STABLE FOR SURGERY WITH MODERATE RISK HE IS DEBILITATED , HAS LARGE HERNIAS AND HISTORY OF STROKE WITH R HEMIPLEGIA. HE IS WILLING TO TAKE RISK. HE HAS NO ACUTE CARDIAC SYMPTOMS. Physical Examination - Vital Signs Temperature: 98.2 F Blood Pressure: 96/55 Pulse: 83 Respirations: 18 Pulse Ox (%): 94 - Physical Exam General: Alert, In no apparent distress HEENT: Atraumatic, PERRLA, EOMI Neck: Supple, JVD not distended Respiratory: Clear to auscultation bilaterally, Normal air movement Cardiovascular: Regular rate/rhythm, Normal S1 S2 Gastrointestinal: Normal bowel sounds, Other (LARGE ABD WALL HERNIAS, OLD.) Musculoskeletal: No tenderness Integumentary: No rashes Neurological: Normal speech, Abnormal strength (RIGHT HEMIPLEGIA.) Lymphatics: No axilla or inguinal lymphadenopathy - Studies Medications List Reviewed: Yes Assessment And Plan - Current Problems (Diagnosis) (1) Acute cholecystitis Current Visit: Yes Status: Acute Plan: HE WILL NEED SURGERY DR. TURCIOS HAS ALSO BEEN CALLED IN RISK IS MODERATE WITH SCARRING AROUND HERNIA HE AND UNDERSTAND IV ZOSYN IV FENTANYL. DVT PX SURGERY TODAY PREOP IN THE NOTE. (2) Cholelithiases Current Visit: Yes Status: Acute (3) Hemiplegia following CVA (cerebrovascular accident) Current Visit: Yes Status: Chronic Plan: OLD UNCHANGED. WHEELCHAIR BOUND (4) Hydatid cyst, hepatic Current Visit: Yes Status: Resolved Plan: HISTORY OF.
[2017-08-30] MEDS ORDERED: Ringers Lactate 1,000 ML IV ONE ×2 (12:12→14:38)
[2017-08-30] MEDS ORDERED: DEXAMETHASONE 10 MG/ML VIAL ONE (12:48)
[2017-08-30] MEDS ORDERED: KETOROLAC 30 MG/ML INJ ONE (12:48)
[2017-08-30] MEDS ORDERED: ONDANSETRON 4 MG/2 ML VIAL ONE (12:49)
[2017-08-30] MEDS: IPRATROPIUM BROMIDE NS SCH ×2 (14:00→21:00)
--- NOTE | 2017-08-30 14:34 | P.OP ---
Preoperative diagnosis: Cholecystitis Postoperative diagnosis: Cholecystitis Primary procedure: Laparoscopic Cholecystectomy Anesthesia: GETA + Local Estimated blood loss: <30cc Specimen: Gallbladder Findings: Multiple hernias, thick adhesions, pus filled gallbladder Complications: None Transferred to: Recovery Room Condition: Good
[2017-08-30] MEDS ORDERED: NEOSTIGMINE 1 MG/ML -5 ML SYRINGE ONE (14:37)
[2017-08-30] MEDS ORDERED: GLYCOPYRROLATE 0.2 MG/ML SYR ONE (14:37)
[2017-08-30] MEDS: NACHLORIDE 0.45% 1,000 ML IV SCH ×2 (20:00)
[2017-08-30] MEDS: lamoTRIgine 100 MG TAB PO SCH (21:00)
[2017-08-30] MEDS: BACLOFEN 10 MG TAB PO SCH (21:00)
--- NOTE | 2017-08-30 21:43 | OP ---
Date of Procedure: 08/30/2017 Surgeon: Walt Cornelius MD, Postoperative Diagnosis: Cholecystitis. Postoperative Diagnosis: Cholecystitis. Procedure Performed: Laparoscopic cholecystectomy. Anesthesia: General endotracheal plus local. Estimated Blood Loss: Less than 30 cc. Specimen: Gallbladder. Findings: 1.Multiple hernias were noted in the midline abdomen with firm thick adhesions to the anterior abdom inal wall as well as many alveolar adhesions. 2.Liver was encased in scar tissue mostly alveolar, but there were some thick adhesions from the ome ntum and duodenum to the gallbladder as well as to the liver. 3.The gallbladder was full of pus and stones. 4.The patient has multiple midline adhesions and interloop adhesions of scar tissue making visualiza tion difficult and technically difficult operation. Complications: None. Disposition: Transferred to recovery room in good condition. Procedure In Detail: After informed consent was obtained, the patient was brought to the operating r oom, prepped and draped in the usual sterile fashion. After adequate anesthesia was achieved, a 5-mm , 0 degree optical trocar was introduced in the right upper quadrant under direct visualization witho ut evidence of complication. Insufflation was obtained to 15 mmHg. At this time, there was noted th ick fibrous adhesions globally over the abdomen emanating predominantly from the hernias previously o perated on and the ventral abdominal wall. However, the gallbladder could not even be visualized at this time due to this significant omentum and intestinal scar tissue over the anterior surface of the gallbladder and liver. The liver could not be visualized upon entry to the abdomen as well. Additi onal trocar site chosen in the epigastrium. This was similarly anesthetized, sharply incised, and a 5-mm trocar was introduced in the abdomen without evidence of complication. I performed a minimal ad hesiolysis at this time to clear the path between the 2 trocars so visualization could be complete. I then continued mobilizing scar tissue off the anterior abdominal wall to allow for an additional tr ocar site chosen in the right mid to lower quadrant. This was a 12-mm under direct visualization jose mally without evidence of complication. Additional right lower quadrant incision was made. A 5-mm tro car was introduced into the abdomen without evidence of complication. These were atypical port posit ions safe for myself. However, due to the significant scar burden emanating everywhere, this made th e operation technically difficult, and as such, this was the reason for the different port positions at this time. I then proceeded to expose the liver by taking the omental attachments off the anterior surface using the LigaSure device and blunt dissection as well as suction dissection and hydrodissection. After t he omentum was taken off the anterior surface of the liver, the gallbladder was finally exposed. Wor jaycee from lateral to medial, the omental attachments were taken off the anterior surface and all inte stinal adhesions were taken down, mobilizing the colon as well as small bowel off the gallbladder and exposing the duodenum, which was found to be inflamed at this time as well. The adhesions were all taken down and the gallbladder was visualized. I then decompressed the gallbladder using a decompres gurmeet needle and noted some purulent discharge pus type at this time. Ratcheted grasper was placed on the gallbladder and because the liver and gallbladder firmly attached by scar tissue to the anterior abdominal wall, I could not mobilize the gallbladder in a normal fashion by pushing towards the brendan ent's right shoulder. I therefore took a lower complaint investigator on the gallbladder and dissected it carefully do wn towards the Desiree's pouch. I then used blunt dissection to visualize only 2 structures enterin g the gallbladder. These were both identified as both the cystic duct and cystic artery. I cleaned up the area more than usual to allow for a larger visualization at this time due to the significant i nflammatory change and significant fatty fibrous tissue and scar tissue, which were in the way of muc h of the dissection, I cleared this posteriorly to expose the liver, which took additional time to ob tain the critical view of safety in both the anterior and lateral directions. After this was ensured , I triply ligated both the cystic duct and cystic artery. A small accessory branch was noted coming off the cystic artery and this was also doubly clipped at this time and all structures were then lig ated with the EndoShears. I then proceeded to take the gallbladder off the hepatic fossa without kyaw dence of complication and placed in an EndoCatch bag and removed through the right lower quadrant inc ision under direct visualization without evidence of complication after dilating up with a Sarot. At this time. I re-insufflated the abdomen, copiously irrigated multiple times, using the entire 3 L b ag to suction and clear the area. Hemostasis of the hepatic fossa was obtained easily with electroca utery. No additional bleeding was appreciated at this time. All clips were found to be in good antony omic position at the end of the procedure. The patient was positioned in neutral position and all po rt sites were then inspected. I closed the 12 mm trocar site after removing it with a Yamini n suture passer using an 0 Vicryl in an interrupted fashion with 2 sutures to close this with good ap proximation of the tissues. I then completely desufflated the abdomen under direct visualization wit hout evidence of complication, removed all trocars, irrigated all skin incisions copiously and closed them with 4-0 Monocryl in a running fashion. Dermabond placed over top. The patient tolerated the procedure well without evidence of complication and transferred to the PACU in good condition. All c ounts were correct at the end of the case. LIV/SANTINO Voice ID: [id number] Report ID: [id number]
[2017-08-30 21:57] VITALS: O2SAT 94
[2017-08-31] MEDS: PIPER/TAZO/NS 3.375gm 3.375 GM/100 ML BAG IVPB SCH ×2 (00:06→10:08)
[2017-08-31] MEDS: INSULIN -REGULAR HUMAN 50 UNIT/0.5 ML ML SQ SCH ×3 (05:34→11:52)
[2017-08-31 06:22] LABS: Absolute Lymphocytes (CBC) 0.6 K/uL (0.7-4.9); Absolute Monocytes 0.6 K/uL (0.1-1.3); Absolute Neutrophil 9.3 K/uL (1.8-8.0); Basophils % 0.1 % (0-1.3); Lymphocytes % 5.3 % (15.3-44.8); MCH 28.4 pg (27.0-35.0); MCV 84.3 fL (80-100); MPV 9.4 fL (7.6-11.3); Monocytes % 6.1 % (3.3-12.3); RBC Red Blood Cell Count 4.75 M/uL (4.33-5.43)
[2017-08-31] MEDS ORDERED: PANTOPRAZOLE 40MG TABLET PO SCH (06:30)
[2017-08-31 06:45] LABS: BUN Blood Urea Nitrogen 13 mg/dL (6-20); Bicarbonate 25 mEq/L (21-31); Glomerular Filtration Rate > 90 mL/min (=/>90); Glucose Level 175 mg/dL (65-120); Potassium 3.8 mEq/L (3.6-5.0); Sodium Level 135 mEq/L (135-145)
[2017-08-31] MEDS ORDERED: POTASSIUM CL SA 10 MEQ TAB PO ONE (08:00)
[2017-08-31 08:04] VITALS: BMI 33.7
[2017-08-31] MEDS: levETIRAcetam 500 MG TAB PO SCH (09:00)
[2017-08-31] MEDS: BACLOFEN 10 MG TAB PO SCH (09:00)
[2017-08-31] MEDS ORDERED: DEXLANSOPRAZOLE 30 MG PO SCH (09:00)
[2017-08-31] MEDS: lamoTRIgine 100 MG TAB PO SCH (09:00)
[2017-08-31] MEDS: IPRATROPIUM BROMIDE NS SCH ×2 (09:00→14:00)
[2017-08-31] MEDS: PANTOPRAZOLE 40 MG INJ IVP SCH (10:08)
--- NOTE | 2017-08-31 10:13 | P.PN ---
Subjective Date of Service: 08/31/17 Chief Complaint: GB SURGERY Subjective: Improving (Patient feels much better, less tender) Physical Examination - Vital Signs Temperature: 97.8 F Blood Pressure: 107/58 Pulse: 76 Respirations: 18 Pulse Ox (%): 95 - Physical Exam General: Alert, In no apparent distress, Cooperative HEENT: Mucous membr. moist/pink Gastrointestinal: Other (soft, mild appropriate TTP, ND, incisions clean and dry ) - Studies Medications List Reviewed: Yes Assessment And Plan - Current Problems (Diagnosis) (1) Acute cholecystitis Current Visit: Yes Status: Acute Plan: S/P laparoscopic cholecystectomy -ok to DC from surgical standpoint - see discharge instructions - follow up in 2 weeks in clinic
--- NOTE | 2017-08-31 12:14 | P.DS ---
Admission Date: 08/29/17 Discharge Date: 08/31/17 Disposition: ROUTINE DISCHARGE Discharge Condition: GOOD Reason for Admission: GB SURGERY - Problems (1) Acute cholecystitis Current Visit: Yes Status: Acute (2) Cholelithiases Current Visit: Yes Status: Acute (3) Hemiplegia following CVA (cerebrovascular accident) Current Visit: Yes Status: Chronic (4) Hydatid cyst, hepatic Current Visit: Yes Status: Resolved Hospital Course: MR. REES HAS DONE WELL SP SURGERY FOR GB REMOVAL. HE IS CLEARED BY DR Chrissie SANTOS FOR DC. Vital Signs/Physical Exam: Temp Pulse Resp BP Pulse Ox 97.8 F 76 18 107/58 L 95 08/31/17 10:13 08/31/17 10:13 08/31/17 10:13 08/31/17 10:13 08/31/17 10:13 Laboratory Data at Discharge: WBC 10.5 K/uL (4.3-10.9) D 08/31/17 06:05 Hgb 13.5 g/dL (13.6-17.9) L 08/31/17 06:05 Hct 40.0 % (39.6-49.0) 08/31/17 06:05 Plt Count 166 K/uL (152-406) 08/31/17 06:05 PT 15.7 SECONDS (9.5-12.5) H 08/29/17 04:51 INR 1.33 08/29/17 04:51 APTT 28.5 SECONDS (24.3-36.9) 08/29/17 04:51 Sodium 135 mEq/L (135-145) 08/31/17 06:05 Potassium 3.8 mEq/L (3.6-5.0) 08/31/17 06:05 BUN 13 mg/dL (6-20) 08/31/17 06:05 Creatinine 0.65 mg/dL (0.61-1.24) 08/31/17 06:05 Glucose 175 mg/dL (65-120) H 08/31/17 06:05 Phosphorus 2.7 mg/dL (2.5-4.3) 08/29/17 04:51 Magnesium Cancelled 08/29/17 04:51 Total Bilirubin 2.1 mg/dL (0.3-1.2) H 08/28/17 23:59 AST 18 IU/L (10-42) 08/28/17 23:59 ALT 17 IU/L (10-60) 08/28/17 23:59 Alkaline Phosphatase 44 IU/L (42-121) 08/28/17 23:59 Amylase 35 U/L (28-100) 08/28/17 23:59 Lipase 16 U/L (22-51) L 08/28/17 23:59 Home Medications: Baclofen 10 mg PO BID 08/29/17 Dexlansoprazole [Dexilant] 30 mg PO DAILY 08/29/17 Ipratropium Boncarbo 30 ml NS TID 08/29/17 Lamotrigine [Lamictal] 100 mg PO BID 08/29/17 Levetiracetam 1,000 mg PO Q12H 08/29/17 Potassium Chloride 20 meq PO DAILY 08/29/17 Amoxicillin 500 mg PO TID #21 capsule 08/31/17 New Medications: Amoxicillin 500 mg PO TID #21 capsule Patient Discharge Instructions: - MUST hold discharge until approved by Dr. Andino Diet: [place] Activity: No lifting more than 10 lbs Followup: Walt Cornelius MD [ACTIVE - CAN ADMIT] -
--- NOTE | 2017-08-31 12:56 | EKG ---
Test Date: 2017-08-29 Test Time: 00:31:04 [place] Operator: UCHE MEASUREMENT RESULTS: Intervals: Rate: 99 [place]: 146 QRSD: 96 QT: 336 QTc: 431 [place]: P: 33 [place]: 146 QRS: -49 T: 13 INTERPRETIVE STATEMENTS: Normal sinus rhythm Pulmonary disease pattern Left anterior fascicular block Minimal voltage criteria for LVH, may be normal variant Abnormal ECG Compared to ECG 03/13/2016 06:43:04 no significant change from previous ECG Electronically Signed On 08-31-17 12:55:57 CDT by Darion Cm
[2017-08-31 13:59] VITALS: BP 112/60; TEMP 97.7
[2017-09-01 11:34] LABS: Vitamin D 1,25-Dihydroxy Total 14 pg/mL (18-72); Vitamin D,1,25-OH2, D2 <8 pg/mL
== END 2017-08-31 14:45 | disposition home or self-care (01) | DRG 418 ==
LOC: ER 22:58 → ERHOLD 08-29 02:18 → 2ND 08-29 03:05
PROVIDERS: ADMIT Internal Medicine; ATTEND Internal Medicine
PROC: 0DN84ZZ Release Small Intestine, Percutaneous Endoscopic Approach (ICD-10-PCS; 2017-08-30)
PROC: 0FT44ZZ Resection of Gallbladder, Percutaneous Endoscopic Approach (ICD-10-PCS; principal; 2017-08-30 12:00)
DX: K80.00 Calculus of gallbladder with acute cholecystitis without obstruction (principal); I69.951 Hemiplegia and hemiparesis following unspecified cerebrovascular disease affecting right dominant side; B67.8 Echinococcosis, unspecified, of liver; K82.8 Other specified diseases of gallbladder; K66.0 Peritoneal adhesions (postprocedural) (postinfection); R56.9 Unspecified convulsions; K45.8 Other specified abdominal hernia without obstruction or gangrene; Z99.3 Dependence on wheelchair
CPT/HCPCS: 36415; 71045; 76705; 80048; 80076; 81001; 82043; 82150; 82570; 82607; 82652; 82962; 83036; 83690; 84100; 84443; 85025; 85610; 85730; 87040; 88304; 93005; 96361; 96365; 96375; 99285; C9113; J0744; J1100; J2405; J2543; J2710; J3010; J7030

== ENCOUNTER 2018-08-13 15:07 | Emergency (ER) | payer OTHER ==
--- OUTSIDE RECORDS SUMMARY | 2018-08-13 15:10 | XMS REPORT | Clinical Summary ---
:1960 Author Organization [facility] Address [address] [place] [address] Care Team Providers Name Role Phone Gigi Andino MD Primary Care Provider Allergies Active Allergy Reactions Severity Noted Date Comments Iodine 2016 Levofloxacin 2016 Morphine 2016 Medications Medication Sig Dispensed Refills Start End Date Status Date furosemide (LASIX) 40 TK 1 T PO QAM 0 Active mg tablet 6 potassium chloride TK 1 T PO QD 1 Active (K-DUR) 20 MEQ CR 6 tablet ipratropium (ATROVENT) SPRAY 2 SPRAYS 0 Active 0.06 % nasal spray IEN TID 7 levETIRAcetam (KEPPRA) Take 1 tablet 180 tablet 3 02/07/20 Active 1000 MG tablet (1,000 mg 8 19 total) by mouth 2 (two) times a day for 360 days. lamoTRIgine (LaMICtal) TAKE 1 TABLET 180 tablet 1 Active 100 MG tablet BY MOUTH TWICE 8 DAILY tamsulosin (FLOMAX) Flomax 0.4 mg capsule 0 Active 0.4 mg capsule Take 1 capsule twice a day by oral route. baclofen (LIORESAL) 10 baclofen 10 mg 0 Active MG tablet tablet 6 onabotulinumtoxinA Botox 200 unit 0 Active (BOTOX) 200 Units injection recon soln pantoprazole TK 1 T PO D 0 Active (PROTONIX) 40 MG EC 8 tablet ondansetron (ZOFRAN) 4 TK 1 T PO Q 12 0 Active MG tablet H 8 fluticasone-umeclidin- Trelegy 0 Active vilanter 100-62.5-25 Ellipta 100 mcg blister with mcg-62.5 device mcg-25 mcg powder for inhalation baclofen (LIORESAL) 10 TAKE 1 TABLET 60 tablet 0 Active MG tablet BY MOUTH TWICE 9 DAILY NEEDED baclofen (LIORESAL) 10 TAKE 1 TABLET 60 tablet 0 Active MG tablet BY MOUTH TWICE 9 DAILY NEEDED tamsulosin (FLOMAX) Take 0.4 mg by 0 05/14/20 Discontinued 0.4 mg mouth daily. 18 capsule,extended release 24hr levETIRAcetam (KEPPRA) TAKE 1 60 tablet 0 12/19/19 Discontinued 1000 MG tablet TABLET(1000 7 18 MG) BY MOUTH TWICE DAILY lamoTRIgine (LaMICtal) TAKE 1 60 tablet 0 12/19/19 Discontinued 25 MG tablet TABLET(25 MG) 7 18 BY MOUTH TWICE DAILY lamoTRIgine (LaMICtal) TAKE 1 TABLET 180 tablet 3 12/19/19 Discontinued 100 MG tablet BY MOUTH TWICE 8 18 DAILY baclofen (LIORESAL) 10 TAKE 1 TABLET 60 tablet 2 09/24/19 Discontinued MG tablet BY MOUTH TWICE 8 18 DAILY NEEDED lamoTRIgine (LaMICtal) TAKE 1 TABLET 60 tablet 4 12/19/19 Discontinued 25 MG tablet BY MOUTH TWICE 8 18 DAILY baclofen (LIORESAL) 10 TAKE 1 TABLET 60 tablet 1 11/21/19 Discontinued MG tablet BY MOUTH TWICE 8 18 DAILY NEEDED baclofen (LIORESAL) 10 TAKE 1 TABLET 60 tablet 2 02/13/20 Discontinued MG tablet BY MOUTH TWICE 8 18 DAILY NEEDED levETIRAcetam (KEPPRA) Take 2 tablets 360 tablet 3 02/12/20 Discontinued 750 MG tablet (1,500 mg 8 18 total) by mouth 2 (two) times a day for 360 days. carBAMazepine XR Take 1 tablet 60 tablet 11 05/15/20 Discontinued (TEGretol XR) 100 MG (100 mg total) 8 18 12 hr tablet by mouth 2 (two) times a day. dexlansoprazole Take 60 mg by 0 05/15/20 Discontinued (DEXILANT) 60 mg mouth daily. 18 capsule lamoTRIgine (LaMICtal) Take 100 mg by 0 02/12/20 Discontinued 100 MG tablet mouth 2 (two) 18 times a day. lamoTRIgine (LaMICtal) Take 25 mg by 0 02/12/20 Discontinued 25 MG tablet mouth 2 (two) 18 times a day. baclofen (LIORESAL) 10 TAKE 1 TABLET 60 tablet 0 03/11/20 Discontinued MG tablet BY MOUTH TWICE 8 18 DAILY NEEDED baclofen (LIORESAL) 10 TAKE 1 TABLET 60 tablet 0 04/08/20 Discontinued MG tablet BY MOUTH TWICE 8 18 DAILY NEEDED baclofen (LIORESAL) 10 TAKE 1 TABLET 60 tablet 0 05/06/20 Discontinued MG tablet BY MOUTH TWICE 8 18 DAILY NEEDED baclofen (LIORESAL) 10 TAKE 1 TABLET 60 tablet 0 05/15/20 Discontinued MG tablet BY MOUTH TWICE 8 18 DAILY NEEDED baclofen (LIORESAL) 10 TAKE 1 TABLET 60 tablet 0 07/21/19 Discontinued MG tablet BY MOUTH TWICE 8 19 DAILY NEEDED Hospital, Clinic, or Other Ordered Dose Route Frequency Start Date End Date Status Facility Administered Medication onabotulinumtoxinA (BOTOX) 200 Units IM once 02/11/2018 02/11/2018 Ended injection 200 UnitsIndications: Spastic hemiplegia of 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 intraparenchymal hemorrhage of brain (HCC), Spasm of muscle, Spasticity onabotulinumtoxinA (BOTOX) 200 Units IM once 02/11/2018 02/11/2018 Ended injection 200 UnitsIndications: Spastic hemiplegia of 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 intraparenchymal hemorrhage of brain (HCC), Spasm of muscle, Spasticity onabotulinumtoxinA (BOTOX) 600 Units IM once 05/14/2018 05/14/2018 Ended injection 600 UnitsIndications: Spasticity, Spasm of muscle, Spastic hemiplegia of 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 intraparenchymal hemorrhage of brain (HCC) Active Problems Problem Noted Date Spasticity 05/14/2018 Spastic hemiplegia of 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 05/14/2018 intraparenchymal hemorrhage of brain Localization-related epilepsy 2016 Spasm of muscle 2016 Spastic hemiplegia affecting right dominant side 2016 Intracranial hemorrhage 2016 Encounters Date Type Specialty Care Team Description 08/11/2018 Telephone Neurology Colby Crane MA 07/21/2018 Refill Chano Valle MD 07/21/2018 Refill Chano Valle MD 05/15/2018 Telephone Neurology Colby Crane MA 05/15/2018 Refill Neurology Chano Miramontes MD 05/14/2018 Procedure visit Neurology Chano Miramontes Spasticity (Primary Dx); MD [place] Spasm of muscle; Spastic hemiplegia of 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 intraparenchymal hemorrhage of brain (HCC); Intracranial hemorrhage (HCC) 05/06/2018 Refill Chano Valle MD 04/08/2018 Refill Neurology Chano Miramontes MD 03/11/2018 Refill Chano Valle MD 02/27/2018 Refill Chano Valle MD 02/12/2018 Refill Chano Valle MD 02/11/2018 Procedure visit Neurology Chano Miramontes Spasticity (Primary Dx); MD [place] Spastic hemiplegia of 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 intraparenchymal hemorrhage of brain; Spasm of muscle 01/03/2018 Refill Chano Valle MD 12/18/2017 Office Visit Neurology Chano Miramontes Spasticity (Primary Dx); MD [place] Localization-related epilepsy; Spasm of muscle; Intracranial hemorrhage; Spastic hemiplegia of 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 intraparenchymal hemorrhage of brain 11/20/2017 Refill Chano Valle MD 09/23/2017 Refill Chano Valle MD 09/18/2017 Telephone Neurology Chano Miramontes Spastic hemiplegia of MD [place] 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 intraparenchymal hemorrhage of brain (Primary Dx) 08/28/2017 Emergency Emergency Medicine 08/20/2017 Orders Only Neurology Chano Miramontes Spastic hemiplegia of MD [place] 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 intraparenchymal hemorrhage of brain (Primary Dx) 08/13/2017 Telephone Neurology Chano Miramontes Spastic hemiplegia of MD [place] 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 intraparenchymal hemorrhage of brain (Primary Dx) after 08/12/2017 Family History Medical History Relation Name Comments Diabetes Mother Relation Name Status Comments Mother Social History Tobacco Use Types Packs/Day Years Used Date Former Smoker Cigarettes Quit: 2005 Smokeless Tobacco: Never Used Alcohol Use Drinks/Week oz/Week Comments No Sex Assigned at Date Recorded Not on file Job Start Date Occupation Industry Not on file Not on file Not on file Travel History Travel Start Travel End No recent travel history available. Last Filed Vital Signs Vital Sign Reading Time Taken Blood Pressure 110/66 05/14/2018 1:12 PM [facility] Pulse 60 05/14/2018 1:12 PM [facility] Temperature 37.2 C (99 F) 08/28/2017 6:32 PM CDT Respiratory Rate 20 08/28/2017 6:32 PM CDT Oxygen Saturation 95% 08/28/2017 6:32 PM CDT Inhaled Oxygen Concentration - - Weight 111 kg (245 lb) 05/14/2018 1:12 PM [facility] Height 182.9 cm (6') 05/14/2018 1:12 PM [facility] Body Mass Index 33.23 05/14/2018 1:12 PM [facility] Plan of Treatment Date Type Specialty Care Team Description 08/20/2018 Procedure [place] [id number] [id number] Health Maintenance Due Date Last Done Comments COLON CANCER SCREENING 2008 SHINGLES VACCINES (#1) 2008 INFLUENZA VACCINE 12/31/2017 Procedures Procedure Name Priority Date/Time Associated Diagnosis Comments BOTULINUM TOXIN Routine 05/14/2018 2:20 PM Spasticity INJECTION [facility] Spasm of muscle Spastic hemiplegia of 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 For more information, please contact:Juanpablo [id number] [place] [address]
--- OUTSIDE RECORDS SUMMARY | 2018-08-13 15:12 | XMS REPORT | Summary of Care ---
:1960 Author Organization [facility] Address [address] [place] [id number] Encounter HQ Yves_megan(FIN) [id number] Date(s): 06/28/15 - 07/27/[address] Discharge Disposition: Home Attending Physician: Physician, Non Associated MD Referring Physician: [id number] -UNKNOWN, PERSONNEL Vital Signs Most recent to oldest [Reference Range]: 1 Height 182.88 cm (06/27/15 9:27 AM) Current Weight 106.818 kg (06/27/15 9:27 AM) Blood Pressure [90-140/60-90 mmHg] 121/70 mmHg (06/27/15 9:27 AM) Peripheral Pulse Rate [60-100 bpm] 56 bpm *LOW* (06/27/15 9:27 AM) Problem List Condition Effective Dates Status Health Status Informant Altered mental Resolved status(Confirmed)(Improving) At risk of seizures(Confirmed) Active Fever(Confirmed)(Stable) Resolved Hypertension(Confirmed)(Improving) Resolved Itching(Confirmed)(Stable) Resolved Pain(Confirmed) Active Pain(Confirmed) Active Seizure precautions(Confirmed) Active Tachypnea(Confirmed)(Improving) Resolved Allergies, Adverse Reactions, Alerts Substance Reaction Severity Status Keflex Active Levaquin Active morphine Levaquin Active potassium iodide Active Medications No data available for this section Results No data available for this section Immunizations Vaccine Date Refusal Reason influenza virus vaccine, inactivated 07/03/10 pneumococcal 23-valent vaccine 07/03/10 Procedures No data available for this section Social History No data available for this section Assessment and Plan No data available for this section
--- OUTSIDE RECORDS SUMMARY | 2018-08-13 15:12 | XMS REPORT | Summary of Care ---
:1960 Author Organization [facility] Address [address] [place] [phone] Encounter HQ Yves_megan(FIN) [id number] Date(s): 08/08/15 - 09/06/[address] [phone] Discharge Disposition: Home Attending Physician: Physician, Non Associated MD Referring Physician: [id number] -UNKNOWN, PERSONNEL Vital Signs Most recent to oldest 1 2 3 [Reference Range]: Blood Pressure [90-140/60-90 123/72 mmHg 116/83 mmHg 113/67 mmHg mmHg] (09/05/15 11:34 AM) (08/29/15 12:44 PM) (08/24/15 4:49 PM) Peripheral Pulse Rate [60-100 60 bpm 53 bpm 60 bpm bpm] (08/24/15 4:49 PM) *LOW* (08/08/15 1:08 PM) (08/10/15 5:41 PM) Problem List Condition Effective Dates Status Health [...]
--- OUTSIDE RECORDS SUMMARY | 2018-08-13 15:12 | XMS REPORT | Summary of Care ---
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 (Final) - 01/21/18 Discharge Disposition: Home or Self Care Attending Physician: Chano Miramontes MD Vital Signs No data available for this section Problem List Condition Effective Dates Status Health Status Informant Altered mental Resolved status(Confirmed)(Improving) At risk of seizures(Confirmed) Active DM (diabetes mellitus)(Confirmed) Resolved Disorder of liver(Confirmed) Resolved Fever(Confirmed)(Stable) Resolved Hypertension(Confirmed)(Improving) Resolved Itching(Confirmed)(Stable) Resolved Pain(Confirmed) Active Seizure(Confirmed) Resolved Seizure precautions(Confirmed) Active Stroke(Confirmed) Resolved Tachypnea(Confirmed)(Improving) Resolved Allergies, Adverse Reactions, Alerts Substance Reaction Severity Status morphine Levaquin Active potassium iodide Active Keflex Active Levaquin Active Medications No data available for this section Results No data available for this section Immunizations Given and Recorded Vaccine Date Status Refusal Reason pneumococcal 23-valent vaccine 07/03/10 Given influenza virus vaccine, inactivated 07/03/10 Given Procedures Procedure Date Related Diagnosis Body Site Status Craniotomy Completed Hiatus hernia repair Completed Social History Social History Type Response Alcohol Never Smoking Status Former smoker; Exposure to Tobacco Smoke None; Cigarette Smoking Last 365 Days No; Reg Smoking Cessation Counseling No entered on: 03/13/16 Assessment and Plan No data available for this section
--- OUTSIDE RECORDS SUMMARY | 2018-08-13 15:12 | XMS REPORT | Summary of Care ---
:1960 Author Organization [facility] Address [address] [place], [place] [phone] Encounter HQ Gogo(LUPE) [id number] Date(s): 11/06/17 - 12/05/[address] Discharge Disposition: Home or Self Care Attending Physician: Chano Miramontes MD Vital Signs Most recent to oldest 1 2 3 [Reference Range]: Blood Pressure [90-140/60-90 128/78 mmHg 118/68 mmHg 116/62 mmHg mmHg] (12/02/17 4:17 PM) (11/21/17 3:57 PM) (11/18/17 5:56 PM) Peripheral Pulse Rate [60-100 53 bpm 59 bpm 62 bpm bpm] *LOW* *LOW* (11/07/17 3:05 PM) (11/21/17 3:57 PM) (11/18/17 5:56 PM) Problem List Condition Effective Dates Status Health Status Informant Altered mental Resolved status(Confirmed)(Improving) At risk of seizures(Confirmed) Active DM (diabetes mellitus)(Confirmed) Resolved Disorder of liver(Confirmed) Resolved Fever(Confirmed)(Stable) Resolved Hypertension(Confirmed)(Improving) Resolved Itching(Confirmed)(Stable) Resolved Pain(Confirmed) Active Pain(Confirmed) Active Seizure(Confirmed) Resolved Seizure precautions(Confirmed) Active [...]
--- OUTSIDE RECORDS SUMMARY | 2018-08-13 15:12 | XMS REPORT | Continuity of Care Document ---
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 STRENGTH Active 12/13/19 [facility] UNLIMITED 18 SPASTIC Active 12/10/19 [facility] HEMIPLEGIA 18 AFFECTING RIGHT D SPASTIC Active 11/06/19 [facility] HEMIPLEGIA 18 AFFECTING RIGHT DOMIN Discharge 03/13/20 03/16/2016 [facility] Diagnosis: 16 Medical Complex partial Center epileptic seizure SZ Active 03/13/[address] Center MS Active 11/06/19 [facility] 16 M/S Active 10/06/19 [facility] 16 RECURRENT Active 09/29/19 [facility] SEIZURES [address] [place] [address] Center MUSCLE SPASM Active 09/06/19 [facility] 16 SPASTIC Active 06/17/19 [facility] HEMIPLEGIA 16 AFFTECTING RIGHT CHUY Altered mental Resolved Problem 07/27/2018 [facility], status(<span [place] ID="[id number]">I Medical mproving</span>) Center At risk of Active Problem 07/27/2018 [facility], seizures [facility] Fever(<span Resolved Problem 07/27/2018 [facility], ID="[id number]">S [place] table</span>) Medical Center Hypertension(<spa Resolved Problem 07/27/2018 [facility], n [place] ID="[id number]">I Medical mproving</span>) Center Itching(<span Resolved Problem 07/27/2018 [facility], ID="[id number]">S [place] table</span>) Medical Center Pain Active Problem 07/27/2018 [facility] Seizure Active Problem 07/27/2018 [facility], precautions [facility] Tachypnea(<span Resolved Problem 07/27/2018 [facility], ID="[id number]">I [place] mproving</span>) Medical Center Disorder of liver Resolved Problem 07/27/2018 [facility] Stroke Resolved Problem 07/27/2018 [facility] DM (<span Resolved Problem 07/27/2018 [facility], ID="[id number]" [place] >Confirmed</span> Medical ) [place] Seizure Resolved Problem 07/27/2018 [facility] Hernia Resolved Problem 03/16/2016 [facility] ILLNESS, Active [facility] UNSPECIFIED [facility] Center SPASTIC Active [facility] HEMIPLEGIA AFFECTING RIGHT DOMIN Medications Medication Details Route Status Patient Ordering Order Source Instructions Provider Date Keppra 1,000 mg, Inactive [facility] Route: IV, 2016 Medical ONCE, Dosing Center Weight 102.273, kg, Start date: 03/13/16 10:53:00 CDT, Stop date: 03/13/16 10:53:00 CDTNotes: Same as Keppra Mix with 100 mL NS, LR or D5W MEDICATION WASTE Product Size: 500 mg Product Wasted: ___ mg Physical See Active [facility] Inst[facility], 2015 [facility] Evalute and Treat. Diagnosis: Parietal Intracerebral Hemorrhage, spastic right hemiparesis, # 1 unit, 0 Refill(s) Occupational See Active 09/29[facility] Therapy Instructions, 2015 [facility] Evalute and Treat. Diagnosis: Parietal Intracerebral Hemorrhage, spastic right hemiparesis, # 1 unit, 0 Refill(s) Lasix 40 mg, 1 tab, Inactive 09/29[facility] [place] Route: PO, Drug 2015 Medical form: TAB, Center Daily, Dosing Weight 110.455, kg, Start date: 09/30/15 9:00:00 CDT, Duration: 30 day, Stop date: 10/29/15 9:00:00 CDTNotes: (Same as: Lasix) May cause GI upset. Give with food or milk. Finasteride 5 mg, 1 tab, Inactive [place] Route: PO, Drug 2015 Medical form: TAB, Center Daily, Dosing Weight 110.455, kg, Start date: 09/30/15 9:00:00 CDT, Duration: 30 day, Stop date: 10/29/15 9:00:00 CDTNotes: (Same as: Proscar) "Do Not Crush" Women of childbearing age should not touch or handle broken tablets Citalopram 20 mg, 1 tab, Inactive [place] Route: PO, Drug 2015 Medical form: TAB, Center Daily, Dosing Weight 110.455, kg, Start date: 09/30/15 9:00:00 CDT, Duration: 30 day, Stop date: 10/29/15 9:00:00 CDTNotes: (Same As: CeleXA) potassium 20 mEq, 1 tab, Inactive [facility] chloride Route: PO, Drug 2015 Medical form: ERTAB, Center Daily, Dosing Weight 110.455, kg, Start date: 09/30/15 9:00:00 CDT, Duration: 30 day, Stop date: 10/29/15 9:00:00 CDTNotes: (Same as: K-Dur 20) "Do Not Crush" With food and full glass of water Keppra 1,000 mg, 2 No Longer [facility] tab, Route: PO, Active 2015 Medical Drug form: TAB, Center Q12H, Start date: 09/29/15 21:00:00 CDT, Duration: 30 day, Stop date: 10/29/15 9:00:00 CDTNotes: (Same as:Keppra) Levetiracetam 1,000 mg=2 tab, Active [place] 500 MG Oral PO, Q12H, # 120 2016 Medical Tablet tab, 5 Center Refill(s) lamoTRIgine 25 25 mg=1 tab, Active [place] mg oral tablet PO, BID, # 60 2016 Medical tab, 5 Center Refill(s) lamotrigine 100 100 mg=1 tab, Active [place] MG Oral Tablet PO, BID, # 60 2016 Medical tab, 5 Center Refill(s) baclofen 10 mg 10 mg=1 tab, Active [place] oral tablet PO, BID, 0 2015 Medical Refill(s) Center potassium 20 mEq, PO, Active [facility] chloride Daily, 0 2015 Medical Refill(s) Center lamotrigine 100 100 mg=1 tab, Inactive [place] MG Oral Tablet PO, BID, 0 2016 Medical Refill(s) Center Keppra 1,000 mg, Inactive [place] Route: PO, Drug 2016 Medical form: TAB, Center Q12H, Dosing Weight 110.455, kg, Start date: 09/29/15 9:00:00 CDT, Duration: 30 day, Stop date: 10/28/15 21:00:00 CDT Baclofen 10 mg, 1 tab, No Longer [facility] Route: PO, Drug Active 2015 Medical form: TAB, BID, Center Dosing Weight 135.455, kg, Start date: 09/29/15 9:00:00 CDT, Duration: 30 day, Stop date: 10/28/15 17:00:00 CDTNotes: (Same As: Lioresal) LaMICtal 25 mg, 1 tab, No Longer [facility] Route: PO, Drug Active 2015 Medical form: TAB, BID, Center Start date: 09/29/15 9:00:00 CDT, Duration: 30 day, Stop date: 10/28/15 17:00:00 CDTNotes: (Same as:LaMICtal) lamotrigine 100 mg, 1 tab, No Longer [facility] Route: PO, Drug Active 2015 Medical form: TAB, BID, Center Dosing Weight 135.455, kg, Start date: 09/29/15 9:00:00 CDT, Duration: 30 day, Stop date: 10/28/15 17:00:00 CDTNotes: (Same as:LaMICtal) Flomax 0.4 mg, 1 cap, No Longer [facility] Route: PO, Drug Active 2015 Medical form: CAP, Center After Breakfast, Dosing Weight 135.455, kg, Start date: 09/29/15 8:30:00 CDT, Duration: 30 day, Stop date: 10/28/15 8:30:00 CDTNotes: (Same As: Flomax) "Do Not Crush" Keppra 1,000 mg, Inactive [place] Route: IVPB, 2016 Medical ONCE, Dosing Center Weight 110.455, kg, Loading Dose, Priority: STAT, Start date: 09/29/15 4:48:00 CDT, Duration: 1 doses or times, Stop date: 09/29/15 4:48:00 CDTNotes: Same as Keppra Mix with 100 mL NS, LR or D5W MEDICATION WASTE Product Size: 500 mg Product Wasted: ___ mg Allergies, Adverse Reactions, Alerts Substance Category Reaction Severity Reaction Status Date Comments Source type Reported Keflex Assertion Drug Active [facility] allergy Levaquin Assertion Drug Active [facility] allergy morphine Assertion Levaquin Drug Active [facility] allergy potassium Assertion Drug Active [facility] iodide allergy Immunizations Immunization Date Given Site Status Last Comments Source Updated pneumococcal 07/03/2010 Right completed [place] [facility], 23-valent vaccine [facility] influenza virus 07/03/2010 Left completed [place] [facility], vaccine, [facility] Results Order Name Results Value Reference Date Interpretation Comments Source Range CHEM PANEL eGFR 101 03/13 Result Comment: The eGFR is calculated using the CKD-EPI formula. In most young, healthy individuals the eGFR will be >90 mL/ min/1.73m2. The eGFR declines with age. An eGFR of 60-89 may be normal in [facility] mL/min/1.7 some populations, particularly the elderly, for whom the CKD-EPI formula has not been extensively validated. Use of the eGFR is not recommended in the following populations: [address] [place] [address] Individuals with unstable creatinine concentrations, including patients and those with serious co-morbid conditions. Patients with extremes in muscle mass or diet. The data above are obtained from the National Kidney Disease Education Program (NKDEP) which additionally recommends that when the eGFR is used in patients with extremes of body mass index for purposes of drug dosing, the eGFR should be multiplied by the estimated BMI. CHEM PANEL BUN 17 mg/dL 7 - 22 03/13 [facility] CHEM PANEL Creatinine 0.76 mg/dL 0.50 - 03/13 [facility] Lvl 1.40 [facility] CHEM PANEL Sodium Lvl 141 meq/L 135 - 145 03/13 [facility] CHEM PANEL Potassium Lvl 3.5 meq/L 3.5 - 5.1 03/13 [facility] CHEM PANEL Chloride Lvl 104 meq/L 95 - 109 03/13 [facility] CHEM PANEL CO2 28 meq/L 24 - 32 03/13 [facility] CHEM PANEL Calcium Lvl 8.3 mg/dL 8.5 - 10.5 03/13 [facility] CHEM PANEL Glucose Lvl 115 mg/dL 70 - 99 10 [facility] CHEM PANEL AGAP 12.5 meq/L 10.0 - 03/13 [place] 20.0 [facility] CHEM PANEL Phosphorus 3.1 mg/dL 2.5 - 4.5 03/13 [facility] CHEM PANEL Magnesium Lvl 1.7 mg/dL 1.8 - 2.4 03/13 [facility] HEMATOLOGY Eosinophils # 0.1 K/CMM 0.0 - 0.5 03/13 [facility] HEMATOLOGY Monocytes # 0.6 K/CMM 0.0 - 0.8 03/13 [facility] HEMATOLOGY Lymphocytes # 1.3 K/CMM 1.0 - 5.5 03/13 [facility] HEMATOLOGY Segs-Bands # 4.2 K/CMM 1.5 - 8.1 03/13 [facility] HEMATOLOGY Basophils 0.8 % 0.0 - 1.0 03/13 [facility] HEMATOLOGY Segs 67.1 % 45.0 - 03/13 [place] 75.0 [facility] HEMATOLOGY Monocytes 9.1 % 2.0 - 12.0 03/13 [facility] HEMATOLOGY Lymphocytes 20.8 % 20.0 - 03/13 [place] 40.0 [facility] HEMATOLOGY Eosinophils 2.2 % 0.0 - 4.0 03/13 [facility] HEMATOLOGY MPV 8.7 fL 7.4 - 10.4 03/13 [facility] HEMATOLOGY Platelet 135 K/CMM 133 - 450 03/13 [facility] HEMATOLOGY RDW 13.9 % 11.5 - 03/13 [place] 14.5 2016 [facility] HEMATOLOGY MCHC 33.8 g/dL 32.0 - 03/13 [place] 36.0 [facility] HEMATOLOGY MCH 28.7 pg 27.0 - 03/13 [place] 31.0 [facility] HEMATOLOGY RBC 5.38 M/CMM 4.70 - 03/13 [place] 6. [facility] HEMATOLOGY MCV 84.9 fL 80.0 - 03/13 [place] 94.0 [facility] HEMATOLOGY WBC 6.2 K/CMM 3.7 - 10.4 03/13 [facility] /2015 [facility] HEMATOLOGY Hgb 15.4 g/dL 14.0 - 03/13 [facility] 18.0 [facility] HEMATOLOGY Hct 45.7 % 42.0 - 03/13 [facility] 54.0 [facility] TOXICOLOGY Lamotrigine 3.8 ug/ml 2.0 - 20.0 03/13 Result Comment: Detection Limit=1.0 [facility] Performed At: Lab[address] [id number] [place] Cm Ken Man MD Ph:[phone] Brain wo Brain wo EXAM: CT BRAIN WITHOUT CONTRAST 03/13 - [facility] contrast CT contrast CT /2015 - [facility] This report was dictated by a Lapel Padder/Fellow. I have personally reviewed the images as Center well as the Resident's interpretation and agree with the findings. 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 COMPARISON: CT brain 09/28/2015 and magnetic resonance imaging 02/09/2012 TECHNIQUE: Routine axial CT images of the brain were obtained. Coronal and sagittal reformats are provided. IV contrast: None. DLP: 1306 mGy-cm FINDINGS: No acute hemorrhage is identified. The garcia-white differentiation is maintained. Left parietal lobe resection cavity from prior resection of dural AV fistula is again noted, and is unchanged. Encephalomalacia in the right parietal lobe is present. The ventricles and sulci remain mildly enlarged, likely a result of parenchymal volume loss. The paranasal sinuses, orbits and mastoids are unremarkable. Postsurgical changes related to left parietal craniotomy and embolization material in the left parietal vertex is again noted. IMPRESSION: 1. No interval change or acute intracranial abnormality. 2. Stable postsurgical changes related to prior hemorrhage and resection of dural AV fistula in the left parietal lobe. Brain wo Brain wo EXAM: MRI BRAIN WITHOUT CONTRAST 09/28 - [facility] contrast contrast MRI /2015 - [facility] DATE: 09/29/2015 13:08 CDT Read by: Marcus Melo MD Dictated Date/time: 09/29/15 15:49 Electronically Signed by: Marcus Melo MD 09/29/15 16:00 FINAL REPORT INDICATION: Absent of reflexes, prior intracranial hemorrhage COMPARISON: 02/09/2012 TECHNIQUE: Brain stroke protocol including axial DWI, axial FLAIR, and axial gradient echo images. IV contrast: None. FINDINGS: There is no restricted diffusion to indicate acute infarct. A right frontal ventriculostomy catheter tract is noted with hemosiderin deposition. There are also blood products of a remote nature involving the corpus callosum and cingulate gyrus. These findings ar e unchanged. Also unchanged is extensive encephalomalacia of the posterior frontal lobe on the left and superior parietal lobule as well as the parasagittal parietal lobe. IMPRESSION: No recent infarct or hemorrhage. Stable regions of encephalomalacia within the left hemisphere. CHEM PANEL Total Protein 6.7 g/dL 6.4 - 8.4 09/[address] CHEM PANEL Albumin Lvl 3.6 g/dL 3.5 - 5.0 09/[address] CHEM PANEL ALT 27 unit/L 0 - 65 09/[address] CHEM PANEL AST 17 unit/L 0 - 37 09/[address] CHEM PANEL Bili Total 0.6 mg/dL 0.2 - 1.3 09/[address] CHEM PANEL Alk Phos 39 unit/L 39 - 136 09/[address] CHEM PANEL eGFR 103 09/28 Result Comment: The eGFR is calculated using the CKD-EPI formula. In most young, healthy individuals the eGFR will be >90 mL/ min/1.73m2. The eGFR declines with age. An eGFR of 60-89 may be normal in [facility] mL/min/1.7 /2015 some populations, particularly the elderly, for whom the CKD-EPI formula has not been extensively validated. Use of the eGFR is not recommended in the following populations: [address] Individuals with unstable creatinine concentrations, including patients and those with serious co-morbid conditions. Patients with extremes in muscle mass or diet. The data above are obtained from the National Kidney Disease Education Program (NKDEP) which additionally recommends that when the eGFR is used in patients with extremes of body mass index for purposes of drug dosing, the eGFR should be multiplied by the estimated BMI. CHEM PANEL Creatinine 0.74 mg/dL 0.50 - 09/28 [facility] Lvl 1.40 [facility] CHEM PANEL CO2 23 meq/L 24 - 32 09/28 [facility]2015 [facility] CHEM PANEL Calcium Lvl 8.5 mg/dL 8.5 - 10.5 09/28 [facility]2015 [facility] CHEM PANEL Chloride Lvl 107 meq/L 95 - 109 09/28 [facility]2015 [facility] CHEM PANEL Sodium Lvl 142 meq/L 135 - 145 09/28 [facility]2015 [facility] CHEM PANEL Potassium Lvl 3.8 meq/L 3.5 - 5.1 09/28 [facility]2015 [facility] CHEM PANEL Glucose Lvl 105 mg/dL 70 - 99 09/28 [facility]2015 [facility] CHEM PANEL BUN 13 mg/dL 7 - 22 09/28 [facility]2015 [facility] CHEM PANEL AGAP 15.8 meq/L 10.0 - 09/28 20.0 [facility] CHEM PANEL B/C Ratio 18 6 - 25 09/28 [facility]2015 [facility] CHEM PANEL Globulin 3.1 g/dL 2.0 - 4.0 09/28 [facility]2015 [facility] CHEM PANEL A/G Ratio 1.2 0.7 - 1.6 09/28 [facility]2015 [facility] CHEM PANEL Phosphorus 2.8 mg/dL 2.5 - 4.5 09/28 [facility]2015 [facility] CHEM PANEL Magnesium Lvl 1.8 mg/dL 1.8 - 2.4 09/[address] DRUG SCREEN U Opiate Scr Negative Negative 09/28 [facility] *NA* Center (09/29/15 3:35 AM) DRUG SCREEN U Cannab Scr Negative Negative 09/28 [facility] *NA* [place] (09/29/15 3:35 AM) DRUG SCREEN U Benzodia Negative Negative 09/28 [facility] *NA* Center (09/29/15 3:35 AM) DRUG SCREEN U [facility] [place] (09[facility]29/15 3:35 AM) DRUG SCREEN U Propoxyph Negative Negative 09/28 [facility] *NA* Center (09/29/15 3:35 AM) DRUG SCREEN U Phencyc Scr Negative Negative 09/28 [facility] *NA* [place] (09/29/15 3:35 AM) DRUG SCREEN U Methadone Negative Negative 09/28 [facility]* [place] (09/29/15 3:35 AM) DRUG SCREEN U Rossi Scr Negative Negative 09/28 [facility]* [place] (09/29/15 3:35 AM) DRUG SCREEN U Amph Scr Negative Negative 09/28 [facility]* [place] (09/29/15 3:35 AM) DRUG SCREEN UDS Note See Note 09/28 [facility] (09/29/15 3:35 AM) HEMATOLOGY Hgb 14.2 g/dL 14.0 - 09/28 18.0 [facility] HEMATOLOGY WBC 6.3 K/CMM 3.7 - 10.4 09/28 [facility] HEMATOLOGY RBC 4.77 M/CMM 4.70 - 09/28 6.10 [facility] HEMATOLOGY Hct 40.8 % 42.0 - 09/28 54.0 [facility] HEMATOLOGY RDW 13.3 % 11.5 - 09/28 14.5 [facility] HEMATOLOGY MCHC 34.7 g/dL 32.0 - 09/28 36.0 [facility] HEMATOLOGY MCV 85.5 fL 80.0 - 09/28 94.0 [facility] HEMATOLOGY MCH 29.7 pg 27.0 - 09/28 31.0 [facility] HEMATOLOGY Platelet 170 K/CMM 133 - 450 09/28 [facility] HEMATOLOGY MPV 9.6 fL 7.4 - 10.4 09/28 [facility] HEMATOLOGY Segs-Bands # 4.0 K/CMM 1.5 - 8.1 09/28 [facility] HEMATOLOGY Lymphocytes # 1.6 K/CMM 1.0 - 5.5 09/28 [facility] HEMATOLOGY Eosinophils 1.2 % 0.0 - 4.0 09/28 [facility] HEMATOLOGY Basophils 0.7 % 0.0 - 1.0 09/28 [facility] HEMATOLOGY Lymphocytes 24.9 % 20.0 - 09/28 [place] 40.0 [facility] HEMATOLOGY Monocytes 9.8 % 2.0 - 12.0 09/28 [facility] HEMATOLOGY Segs 63.4 % 45.0 - 09/28 [facility] 75.0 [facility] HEMATOLOGY Monocytes # 0.6 K/CMM 0.0 - 0.8 09/28 [facility] HEMATOLOGY Eosinophils # 0.1 K/CMM 0.0 - 0.5 09/28 [facility]2015 [facility] TOXICOLOGY Phenytoin 1.47 ug/ml 1.00 - 09/28 [facility] Free 2.00 [facility] URINE AND UA Sq Epi None Seen 09/28 [facility] URINE AND UA <=1.0 0.1 - 1.0 09/28 [facility] Urobilinogen mg/dL [facility] URINE AND UA Color Yellow Yellow 09/28 [facility] *NA* [place] (09/29/15 3:35 AM) URINE AND UA WBC null 0 - 5 09/28 [facility]2015 [facility] URINE AND UA Mucus Few /LPF None Seen 09/28 [facility] STOOL /LPF /2015 [facility] URINE AND UA Ketones Negative Negative 09/28 [facility] mg/dL mg/dL [facility] URINE AND UA Spec Grav 1.010 <=1.030 09/28 [facility] URINE AND UA pH 6.0 5.0 - 8.0 09/28 [facility] URINE AND UA Protein Negative Negative 09/28 [facility] mg/dL mg/dL [facility] URINE AND UA Glucose Negative Negative 09/28 [facility] mg/dL mg/dL [facility] URINE AND UA Turbidity Clear Clear 09/28 [facility] (09/29/15 3:35 AM) [place] URINE AND UA Blood Negative Negative 09/28 [facility] (09/29/15 3:35 AM) [place] URINE AND UA Nitrite Negative Negative 09/28 [facility] (09/29/15 3:35 AM) [place] URINE AND UA Bili Negative Negative 09/28 [facility] Medical *NA* [place] (09/29/15 3:35 AM) URINE AND UA Leuk Est Negative Negative 09/28 [facility] (09/29/15 3:35 AM) [place] Chest 2 Chest 2 views EXAM: XR CHEST 2 VIEWS 09/28 - [facility] views DX DX /2015 - [facility] DATE: 09/29/2015 2:32 AM CDT Read by: Rita Ramsey MD Dictated Date/time: 09/29/15 12:10 Electronically Signed by: Rita Ramsey MD 09/29/15 12:13 FINAL REPORT INDICATION: Abnormal chest sounds FINDINGS: PA and lateral views of the chest are compared to 12/27/2010. The cardiothoracic ratio measures 18/30 cm. The aorta is ectatic and tortuous. On the lateral view, there is a suggestion of calcification outlining the inferior surface of the heart and/or pericardium but this is not definitive. There is mild left basilar platelike atelectasis but otherwise the lungs are clear. No pleural effusions are seen. IMPRESSION: 1. Cardiomegaly with slightly tortuous aorta. 2. On the lateral view, there is a suggestion of potential calcification underlying the inferior surface of the heart and/or pericardium. However this is not definitive and can be better assessed with a chest CT as clinically indicated. 3. Mild left lower lobe platelike atelectasis but otherwise clear lungs. Vital Signs Vital Sign Value Date Comments Source Systolic (mm Hg) 128 12/02/2017 [facility] Diastolic (mm Hg) 78 12/02/2017 [facility] Heart Rate 53 11/21/2017 [facility] Systolic (mm Hg) 118 11/21/2017 [facility] Diastolic (mm Hg) 68 11/21/2017 [facility] Systolic (mm Hg) 116 11/18/2017 [facility] Diastolic (mm Hg) 62 11/18/2017 [facility] Heart Rate 59 11/18/2017 [facility] Heart Rate 62 11/07/2017 [facility] Systolic (mm Hg) 103 10/07/2017 [facility] Diastolic (mm Hg) 68 10/07/2017 [facility] Heart Rate 60 10/07/2017 [facility] Systolic (mm Hg) 101 10/07/2017 [facility] Diastolic (mm Hg) 60 10/07/2017 [facility] Heart Rate 61 10/07/2017 [facility] Temperature Oral (F) 97.9 F 03/13/2016 [facility] Systolic (mm Hg) 139 03/13/2016 [facility] Diastolic (mm Hg) 82 03/13/2016 [facility] Respitory Rate 18 03/13/2016 [facility] Systolic (mm Hg) 135 03/13/2016 [facility] Diastolic (mm Hg) 84 03/13/2016 [facility] Respitory Rate 23 03/13/2016 [facility] Systolic (mm Hg) 135 03/13/2016 [facility] Diastolic (mm Hg) 81 03/13/2016 [facility] Respitory Rate 20 03/13/2016 [facility] BMI Calculated 34.28 03/13/2016 [facility] Weight 102.273 03/13/2016 [facility] Heart Rate 64 03/13/2016 [facility] Temperature Oral (F) 98.0 F 03/13/2016 [facility] Height 172.72 cm 03/13/2016 [facility] Heart Rate 63 10/12/2015 [facility] Systolic (mm Hg) 109 10/12/2015 [facility] Diastolic (mm Hg) 71 10/12/2015 [facility] Systolic (mm Hg) 128 10/10/2015 [facility] Diastolic (mm Hg) 72 10/10/2015 [facility] Heart Rate 57 10/10/2015 [facility] Systolic (mm Hg) 113 10/05/2015 [facility] Diastolic (mm Hg) 69 10/05/2015 [facility] Heart Rate 66 10/05/2015 [facility] Heart Rate 62 10/03/2015 [facility] Systolic (mm Hg) 108 10/03/2015 [facility] Diastolic (mm Hg) 66 10/03/2015 [facility] Heart Rate 80 09/30/2015 [facility] Temperature Oral (F) 97.3 F 09/30/2015 [facility] Respitory Rate 18 09/30/2015 [facility] Systolic (mm Hg) 102 09/30/2015 [facility] Diastolic (mm Hg) 70 09/30/2015 [facility] Respitory Rate 18 09/30/2015 [facility] Systolic (mm Hg) 95 09/30/2015 [facility] Diastolic (mm Hg) 61 09/30/2015 [facility] Temperature Oral (F) 97.5 F 09/30/2015 [facility] Heart Rate 60 09/30/2015 [facility] Respitory Rate 18 09/30/2015 [facility] Systolic (mm Hg) 107 09/30/2015 [facility] Diastolic (mm Hg) 59 09/30/2015 [facility] Heart Rate 69 09/30/2015 [facility] Temperature Oral (F) 97.9 F 09/30/2015 [facility] Height 175.26 cm 09/29/2015 [facility] Weight 110.455 09/29/2015 [facility] BMI Calculated 35.96 09/29/2015 [facility] Heart Rate 53 09/28/2015 [facility] Systolic (mm Hg) 127 09/28/2015 [facility] Diastolic (mm Hg) 69 09/28/2015 [facility] Systolic (mm Hg) 123 09/05/2015 [facility] Diastolic (mm Hg) 72 09/05/2015 [facility] Systolic (mm Hg) 116 08/29/2015 [facility] Diastolic (mm Hg) 83 08/29/2015 [facility] Systolic (mm Hg) 113 08/24/2015 [facility] Diastolic (mm Hg) 67 08/24/2015 [facility] Heart Rate 60 08/24/2015 [facility] Heart Rate 53 08/10/2015 [facility] Heart Rate 60 08/08/2015 [facility] Heart Rate 56 06/27/2015 [facility] Systolic (mm Hg) 121 06/27/2015 [facility] Diastolic (mm Hg) 70 06/27/2015 [facility] Height 182.88 cm 06/27/2015 [facility] Encounters Location Location Encounter Encounter Reason Attending ADM DC Status Source Details Type Number For Provider Date Date Visit [facility] [id number] Non 06/28 07/28 [facility] Memorial Physician /2015 [place] [id number] Non 08/07 09/06 [facility] Physician /2015 [place] [facility] [id number] Non 09/06 10/06 [facility] Physician /2015 [facility] OBS [id number] Leon 09/28 09/29 [facility] Observation Rittger /2015 [facility] [id number] Chano 10/09 11/08 [facility] Memorial Yaltho /2015 [facility] Emergency [id number] Christian 03/13 03/13 [facility] Holdener /2015 [facility] [id number] Non 10/07 11/06 [facility] /2017 [place] [facility] [id number] Chano 11/06 12/06 [facility] /2017 [place] [facility] [id number] Chano 12/09 01/08 [facility] /2017 [place] Procedures Procedure Code Date Perfomer Comments Source Craniotomy [id number] [facility] [place] hernia [id number] [facility] repair Craniotomy [id number] [facility] Hiatus hernia [id number] [facility]
--- OUTSIDE RECORDS SUMMARY | 2018-08-13 15:12 | XMS REPORT | Summary of Care ---
:1960 Author Organization [facility] Address [address] [place], [place] [address] Encounter HQ Yves_megan(LUPE) [id number] Date(s): 10/07/17 - 11/05/[address] Discharge Disposition: Home or Self Care Attending Physician: Physician, Non Associated MD Referring Physician: Chano Miramontes MD Vital Signs Most recent to oldest [Reference Range]: 1 2 Current Weight 102.2 kg (10/14/17 3:57 PM) Blood Pressure [90-140/60-90 mmHg] 103/68 mmHg 101/60 mmHg (10/07/17 8:55 AM) (10/07/17 8:19 AM) Peripheral Pulse Rate [60-100 bpm] 60 bpm 61 bpm (10/07/17 8:55 AM) (10/07/17 8:19 AM) Problem List Condition Effective Dates Status [...]
--- OUTSIDE RECORDS SUMMARY | 2018-08-13 15:13 | XMS REPORT | Summary of Care ---
:1960 Author Organization [facility] Address [address] [place] [id number]- Encounter HQ Encntr_megan(FIN) [id number] Date(s): 09/29/15 - 09/30/[address] Professional Services provided by [facility] [place] [address]- Discharge Disposition: Home Attending Physician: Augie Low MD Admitting Physician: Augie Low MD Referring Physician: Leon Jarrett MD Vital Signs Most recent to oldest 1 2 3 [Reference Range]: Height 175.26 cm (09/29/15 3:07 AM) Temperature Oral [96.4-99.1 97.3 DegF 97.5 DegF 97.9 DegF DegF] (09/30/15 11:08 AM) (09/30/15 7:18 AM) (09/30/15 4:07 AM) Blood Pressure [90-140/60-90 102/70 mmHg 95/61 mmHg 107/59 mmHg mmHg] (09/30/15 11:08 AM) (09/30/15 7:18 AM) (09/30/15 4:07 AM) Respiratory Rate [14-20 BRMIN] 18 BRMIN 18 BRMIN 18 BRMIN (09/30/15 11:08 AM) (09/30/15 7:18 AM) (09/30/15 4:07 AM) Peripheral Pulse Rate [60-100 80 bpm 60 bpm 69 bpm bpm] (09/30/15 11:08 AM) (09/30/15 7:18 AM) (09/30/15 4:07 AM) Weight 110.455 kg (09/29/15 3:07 AM) Body Mass Index 35.96 m2 (09/29/15 3:07 AM) Problem List Condition Effective Dates Status Health Status Informant Altered mental Resolved status(Confirmed)(Improving) At risk of seizures(Confirmed) Active Disorder of liver(Confirmed) Resolved Fever(Confirmed)(Stable) Resolved Hernia(Confirmed) Resolved Hypertension(Confirmed)(Improving) Resolved Itching(Confirmed)(Stable) Resolved Pain(Confirmed) Active Pain(Confirmed) Active Seizure precautions(Confirmed) Active Stroke(Confirmed) Resolved Tachypnea(Confirmed)(Improving) Resolved Allergies, Adverse Reactions, Alerts Substance Reaction Severity Status Keflex Active Levaquin Active morphine Levaquin Active potassium iodide Active Medications baclofen 10 mg, 1 tab, Route: PO, Drug form: TAB, BID, Dosing Weight 135.455, kg, Start date: 09/29/15 9:00:00 CDT, Duration: 30 day, Stop date: 10/28/15 17:00:00 CDT Notes: (Same As: Lidevoraal) Start Date: 09/29/15 Stop Date: 09/30/15 Status: Discontinuedbaclofen 10 mg oral tablet 10 mg=1 tab, PO, BID, 0 Refill(s) Start Date: 09/29/15 Status: Orderedcitalopram 20 mg, 1 tab, Route: PO, Drug form: TAB, Daily, Dosing Weight 110.455, kg, Start date: 09/30/15 9:00:00 CDT, Duration: 30 day, Stop date: 10/29/15 9:00:00 CDT Notes: (Same As: CeleXA) Start Date: 09/30/15 Stop Date: 09/30/15 Status: Discontinuedfinasteride 5 mg, 1 tab, Route: PO, Drug form: TAB, Daily, Dosing Weight 110.455, kg, Start date: 09/30/15 9:00:00 CDT, Duration: 30 day, Stop date: 10/29/15 9:00:00 CDT Notes: (Same as: Proscar) "Do Not Crush"Women of childbearing age should not touch or handle broken tablets Start Date: 09/30/15 Stop Date: 09/30/15 Status: DiscontinuedFlomax 0.4 mg, 1 cap, Route: PO, Drug form: CAP, After Breakfast, Dosing Weight 135.455 , kg, Start date: 09/29/15 8:30:00 CDT, Duration: 30 day, Stop date: 10/28/15 8: 30:00 CDT Notes: (Same As: Flomax) "Do Not Crush" Start Date: 09/29/15 Stop Date: 09/30/15 Status: DiscontinuedKeppra 1,000 mg, Route: PO, Drug form: TAB, Q12H, Dosing Weight 110.455, kg, Start date : 09/29/15 9:00:00 CDT, Duration: 30 day, Stop date: 10/28/15 21:00:00 CDT Start Date: 09/29/15 Stop Date: 09/29/15 Status: DeletedKeppra 1,000 mg, 2 tab, Route: PO, Drug form: TAB, Q12H, Start date: 09/29/15 21:00:00 CDT, Duration: 30 day, Stop date: 10/29/15 9:00:00 CDT Notes: (Same as:Keppra) Start Date: 09/29/15 Stop Date: 09/30/15 Status: DiscontinuedKeppra 500 mg, 1 tab, Route: PO, Drug form: TAB, Q12H, Dosing Weight 110.455, kg, Start date: 09/29/15 9:00:00 CDT, Duration: 30 day, Stop date: 10/28/15 21:00: 00 CDT Notes: (Same as:Keppra) Start Date: 09/29/15 Stop Date: 09/29/15 Status: CanceledKeppra + Sodium Chloride 0.9% IV 100 mL 1,000 mg, Route: IVPB, ONCE, Dosing Weight 110.455, kg, Loading Dose, Priority: STAT, Start date: 09/29/15 4:48:00 CDT, Duration: 1 doses or times, Stop date: 09/29/15 4:48:00 CDT Notes: Same as KeppraMix with 100 mL NS, LR or D5W MEDICATION WASTE Product Size: 500 mgProduct Wasted: ___ mg Start Date: 09/29/15 Stop Date: 09/29/15 Status: CompletedLaMICtal 25 mg, 1 tab, Route: PO, Drug form: TAB, BID, Start date: 09/29/15 9:00:00 CDT, Duration: 30 day, Stop date: 10/28/15 17:00:00 CDT Notes: (Same as:LaMICtal) Start Date: 09/29/15 Stop Date: 09/30/15 Status: DiscontinuedlamoTRIgine 100 mg, 1 tab, Route: PO, Drug form: TAB, BID, Dosing Weight 135.455, kg, Start date: 09/29/15 9:00:00 CDT, Duration: 30 day, Stop date: 10/28/15 17:00:00 CDT Notes: (Same as:LaMICtal) Start Date: 09/29/15 Stop Date: 09/30/15 Status: DiscontinuedlamoTRIgine 100 mg oral tablet 100 mg=1 tab, PO, BID, # 60 tab, 5 Refill(s) Start Date: 09/29/15 Stop Date: 03/27/16 Status: OrderedlamoTRIgine 100 mg oral tablet 100 mg=1 tab, PO, BID, 0 Refill(s) Start Date: 09/29/15 Stop Date: 09/29/15 Status: DiscontinuedlamoTRIgine 25 mg oral tablet 25 mg=1 tab, PO, BID, # 60 tab, 5 Refill(s) Start Date: 09/29/15 Stop Date: 03/27/16 Status: OrderedLasix 40 mg, 1 tab, Route: PO, Drug form: TAB, Daily, Dosing Weight 110.455, kg, Start date: 09/30/15 9:00:00 CDT, Duration: 30 day, Stop date: 10/29/15 9:00:00 CDT Notes: (Same as: Lasix) May cause GI upset. Give with food or milk. Start Date: 09/30/15 Stop Date: 09/30/15 Status: DiscontinuedlevETIRAcetam 500 mg oral tablet 1,000 mg=2 tab, PO, Q12H, # 120 tab, 5 Refill(s) Start Date: 09/29/15 Stop Date: 03/27/16 Status: OrderedOccupational Therapy See Instructions, MISC, ONCALL, Evalute and Treat. Diagnosis: Parietal Intracerebral Hemorrhage, spastic right hemiparesis, # 1 unit, 0 Refill(s) Start Date: 09/30/15 Status: OrderedPhysical Therapy See Instructions, MISC, ONCALL, Evalute and Treat. Diagnosis: Parietal Intracerebral Hemorrhage, spastic right hemiparesis, # 1 unit, 0 Refill(s) Start Date: 09/30/15 Status: Orderedpotassium chloride 20 mEq, PO, Daily, 0 Refill(s) Start Date: 09/29/15 Status: Orderedpotassium chloride 20 mEq, 1 tab, Route: PO, Drug form: ERTAB, Daily, Dosing Weight 110.455, kg, Start date: 09/30/15 9:00:00 CDT, Duration: 30 day, Stop date: 10/29/15 9:00:00 CDT Notes: (Same as: K-Dur 20)"Do Not Crush" With food and full glass of water Start Date: 09/30/15 Stop Date: 09/30/15 Status: Discontinued Results ELECTROLYTES Most recent to oldest [Reference Range]: 1 Sodium Lvl [135-145 mEq/L] 142 mEq/L (09/29/15 3:35 AM) Potassium Lvl [3.5-5.1 mEq/L] 3.8 mEq/L (09/29/15 3:35 AM) Chloride Lvl [95-109 mEq/L] 107 mEq/L (09/29/15 3:35 AM) CO2 [24-32 mEq/L] 23 mEq/L *LOW* (09/29/15 3:35 AM) AGAP [10.0-20.0 mEq/L] 15.8 mEq/L (09/29/15 3:35 AM) CHEM PANEL Most recent to oldest [Reference Range]: 1 Creatinine Lvl [0.50-1.40 mg/dL] 0.74 mg/dL (09/29/15 3:35 AM) eGFR 103 mL/min/1.73m2 1 *NA* (09/29/15 3:35 AM) BUN [7-22 mg/dL] 13 mg/dL (09/29/15 3:35 AM) B/C Ratio [6-25] 18 (09/29/15 3:35 AM) Glucose Lvl [70-99 mg/dL] 105 mg/dL *HI* (09/29/15 3:35 AM) Total Protein [6.4-8.4 g/dL] 6.7 g/dL (09/29/15 3:35 AM) Albumin Lvl [3.5-5.0 g/dL] 3.6 g/dL (09/29/15 3:35 AM) Globulin [2.0-4.0 g/dL] 3.1 g/dL (09/29/15 3:35 AM) A/G Ratio [0.7-1.6] 1.2 (09/29/15 3:35 AM) Calcium Lvl [8.5-10.5 mg/dL] 8.5 mg/dL (09/29/15 3:35 AM) Phosphorus [2.5-4.5 mg/dL] 2.8 mg/dL (09/29/15 3:35 AM) Magnesium Lvl [1.8-2.4 mg/dL] 1.8 mg/dL (09/29/15 3:35 AM) ALT [0-65 unit/L] 27 unit/L (09/29/15 3:35 AM) AST [0-37 unit/L] 17 unit/L (09/29/15 3:35 AM) Alk Phos [39-136 unit/L] 39 unit/L (09/29/15 3:35 AM) Bili Total [0.2-1.3 mg/dL] 0.6 mg/dL (09/29/15 3:35 AM) 1Result Comment: The eGFR is calculated using the CKD-EPI formula. In most young , healthy individualsthe eGFR will be >90 mL/min/1.73m2. The eGFR declines with age. An eGFR of 60-89 may be normal in some populations, particularly the elderly, for whom the CKD-EPI formula has not been extensively validated. Use of the eGFR is not recommended in the following populations: Individuals with unstable creatinine concentrations, including patients and those with serious co-morbid conditions. Patients with extremes in muscle mass or diet. The data above are obtained from the National Kidney Disease Education Program ( NKDEP) which additionally recommends that when the eGFR is used in patients with extremes of body mass index for purposesof drug dosing, the eGFR should be multiplied by the estimated BMI.DRUG SCREEN Most recent to oldest [Reference Range]: 1 U Methadone Scr [Negative] Negative *NA* (09/29/15 3:35 AM) U Propoxyph Scr [Negative] Negative *NA* (09/29/15 3:35 AM) U Amph Scr [Negative] Negative *NA* (09/29/15 3:35 AM) U Rossi Scr [Negative] Negative *NA* (09/29/15 3:35 AM) U Benzodia Scr [Negative] Negative *NA* (09/29/15 3:35 AM) U Cocaine Scr [Negative] Negative *NA* (09/29/15 3:35 AM) U Opiate Scr [Negative] Negative *NA* (09/29/15 3:35 AM) U Phencyc Scr [Negative] Negative *NA* (09/29/15 3:35 AM) U Cannab Scr [Negative] Negative *NA* (09/29/15 3:35 AM) UDS Note See Note *NA* (09/29/15 3:35 AM) TOXICOLOGY Most recent to oldest [Reference Range]: 1 Phenytoin Free [1.00-2.00 ug/ml] 1.47 ug/ml (09/29/15 3:35 AM) URINE AND STOOL Most recent to oldest [Reference Range]: 1 UA Turbidity [Clear] Clear (09/29/15 3:35 AM) UA Color [Yellow] Yellow *NA* (09/29/15 3:35 AM) UA pH [5.0-8.0] 6.0 (09/29/15 3:35 AM) UA Spec Grav [<=1.030] 1.010 (09/29/15 3:35 AM) UA Glucose [Negative mg/dL] Negative mg/dL *NA* (09/29/15 3:35 AM) UA Blood [Negative] Negative (09/29/15 3:35 AM) UA Ketones [Negative mg/dL] Negative mg/dL *NA* (09/29/15 3:35 AM) UA Protein [Negative mg/dL] Negative mg/dL (09/29/15 3:35 AM) UA Urobilinogen [0.1-1.0 mg/dL] <=1.0 mg/dL *NA* (09/29/15 3:35 AM) UA Bili [Negative] Negative *NA* (09/29/15 3:35 AM) UA Leuk Est [Negative] Negative (09/29/15 3:35 AM) UA Nitrite [Negative] Negative (09/29/15 3:35 AM) UA WBC [0-5 /HPF] <1 /HPF (09/29/15 3:35 AM) UA Sq Epi None Seen *NA* (09/29/15 3:35 AM) UA Mucus [None Seen /LPF] Few /LPF *NA* (09/29/15 3:35 AM) HEMATOLOGY Most recent to oldest [Reference Range]: 1 WBC [3.7-10.4 K/CMM] 6.3 K/CMM (09/29/15 3:35 AM) RBC [4.70-6.10 M/CMM] 4.77 M/CMM (09/29/15 3:35 AM) Hgb [14.0-18.0 g/dL] 14.2 g/dL (09/29/15 3:35 AM) Hct [42.0-54.0 %] 40.8 % *LOW* (09/29/15 3:35 AM) MCV [80.0-94.0 fL] 85.5 fL (09/29/15 3:35 AM) MCH [27.0-31.0 pg] 29.7 pg (09/29/15 3:35 AM) MCHC [32.0-36.0 g/dL] 34.7 g/dL (09/29/15 3:35 AM) RDW [11.5-14.5 %] 13.3 % (09/29/15 3:35 AM) Platelet [133-450 K/CMM] 170 K/CMM (09/29/15 3:35 AM) MPV [7.4-10.4 fL] 9.6 fL (09/29/15 3:35 AM) Segs [45.0-75.0 %] 63.4 % (09/29/15 3:35 AM) Lymphocytes [20.0-40.0 %] 24.9 % (09/29/15 3:35 AM) Monocytes [2.0-12.0 %] 9.8 % (09/29/15 3:35 AM) Eosinophils [0.0-4.0 %] 1.2 % (09/29/15 3:35 AM) Basophils [0.0-1.0 %] 0.7 % (09/29/15 3:35 AM) Segs-Bands # [1.5-8.1 K/CMM] 4.0 K/CMM (09/29/15 3:35 AM) Lymphocytes # [1.0-5.5 K/CMM] 1.6 K/CMM (09/29/15 3:35 AM) Monocytes # [0.0-0.8 K/CMM] 0.6 K/CMM (09/29/15 3:35 AM) Eosinophils # [0.0-0.5 K/CMM] 0.1 K/CMM (09/29/15 3:35 AM) Immunizations Vaccine Date Refusal Reason influenza virus vaccine, inactivated 07/03/10 pneumococcal 23-valent vaccine 07/03/10 Procedures Procedure Date Related Diagnosis Body Site Craniotomy Hiatus hernia repair Social History Social History Type Response Alcohol Never Smoking Status Former smoker; Exposure to Tobacco Smoke None; Cigarette Smoking Last 365 Days No; Reg Smoking Cessation Counseling No Assessment and Plan Extracted from: Title: General Neurology Discharge Author: Garth Roberts MD Date: Summary General Neurology Discharge Summary Date of Admission: 09/29/2015 Date of Discharge: 09/30/2015 Admit Diagnosis: 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 Spoke with via phone who reported that earlier this evening, her had his usual seizure - described as right sided face twitching without LOC. However, typically, his seizure will last 5 min utes. Earlier this evening, patient had right sided face twitching for 10 minutes. He then took an extra tab of home lamotrigine (100 mg). He subsequently went into another seizure that lasted around 30 minutes and resolved when EMS gave valium 5 mg. He reportedly had another couple of seizures at OSH, unknown duration and received fosphenytoin 1 g IV, and was later given an additional [address] h ead was done and showed chronic left frontoparietal encephalomalacia. CXR showed possible pneumonia vs atelectasis. He was transferred to [facility] for higher level of care. reports that patient typically has focal seizures - right face twitching, lasting 5 minutes, once per month. He takes lamotrigine 100 mg bid at home. He was on Keppra 500 mg bid at some point in past, but his seizures were not effectively treated on this dose, and he was switched to lamotrigine. denies side effects while on keppra. Patient reports subjective fevers at home recently, but measured temperature at home was normal. Denies cough, diarrhea, and dysuria. Shortly after arrival to [facility], nurse witnessed ~2 minutes of right hand twitching, but no change of consciousness. Per patient, sometimes right hand twitching will preceed his facial twitching. Hospital Course: Patient with acute on chornic right hemiparesiis, concerning for miguel's paralysis vs. new stroke/lesion. MRI brain done with stable chornic encephalomalacia with no new lesion. Donavann was observed over night. Returned back to baseline and stated usually takes two days prior to return back to normal strength in his right upper extremity after a seizure. Routine EEG was done with no ongoing seizure acti vity. There was no infectious/metabolic cause to explain breakthrough seizure, especially presented as focal status. The patient was discharged on increased dosees of Lamictal to 125 mg BID as well as addition of Keppra 1000 mg BID. Discharge Physical Examination: Vitals Tmp(F) Pulse BP RR SpO2 FIO2 09/29 11:08 97.3 80 102/70 18 97 --- 09/29 07:18 97.5 60 95/61 18 95 --- 09/29 04:07 97.9 69 107/59 18 95 --- 09/29 00:15 97.8 70 102/62 18 95 --- 09/28 19:42 97.5 78 111/66 18 96 --- 24 Hr Tmax: 98.1F (36.72c) at 09/28 16:34 Vital Signs are the last 5 in the past 48 hours. HEAD - Normocephalic EYES - Pupil equal and reactive to light PHARYNX - Mouth pin LUNGS - Clear to auscultation CV - Rate rhythm regula ABDOMEN - Soft, non tender SPINE - Straight, no defects, no scoliosis SKIN: Clear, no rashes NEURO: AAO*2 - knows name and city but not name of hospital. Thought it was 1990. Follows commands. 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 R__4____mm L___4__mm. Visual wetzel intact to confrontation. Eye movements full without nystagmus. Right lower facial palsy. Facial sensation is decreased to light touch on the right. Tongue and palate midline. Motor: Normal bulk and tone on the left. Increased tone on the right (baseline ) Strength is 5/5 proximally and distally on the left limbs. RUE 3/5 proximally , 4/5 at biceps, 3/5 wrist extensors, 4/5 wr ist flexors. RLE 3/5 hip flexors, 4/5 knee flexors, 4+/5 knee extensors, 3/5 dorsiflexors, 4/5 plantar flexors. Sensory: - Decreased to light touch in right hemibody Coordination: No dysmetria on finger-nose on the left. Unable to test on the right due to weakness. Reflexes: 2+ at b/l biceps, brachioradialis, and patella on the left, 3+ on the right. Toes down-going on the left and upgoing on the right. Gait: Able to transfer from bed to walker, and walker to toilet. Uses walker to ambulate or one person assist Discharge Medications: Discharge Medications Occupational Therapy :See Instructions, MISC, ONCALL, Evalute and Treat. Diagnosis: Parietal Intracerebral Hemorrhage, spastic right hemiparesis, 1 unit , 0 Refill(s) Ordered by: Garth Roberts MD - 09/30/2015 13:25 Physical Therapy :See Instructions, MISC, ONCALL, Evalute and Treat. Diagnosis : Parietal Intracerebral Hemorrhage, spastic right hemiparesis, 1 unit, 0 Refill (s) Ordered by: Garth Roberts MD - 09/30/2015 13:25 levETIRAcetam 500 mg oral tablet :1,000 mg, 2 tab, PO, Q12H, for 30 day, 120 tab, 5 Refill(s) Ordered by: Garth Roberts MD - 09/29/2015 17:44 lamoTRIgine 25 mg oral tablet :25 mg, 1 tab, PO, BID, for 30 day, 60 tab, 5 Refill(s) Ordered by: Garth Roberts MD - 09/29/2015 17:44 lamoTRIgine 100 mg oral tablet :100 mg, 1 tab, PO, BID, for 30 day, 60 tab, 5 Refill(s) Ordered by: Garth Roberts MD - 09/29/2015 17:44 Follow up: PCP in 2 weeks Neurologist in 2 weeks Discharge Instructions: Seizure precautions: - No driving until seizure free for >3 months and cleared by a physician. Please call local DPS/DMV department. - Avoid taking baths or swimming. People who experience seizures have an increased risk of drowning in a bathtub/pool during a seizure. A shower is much safer. - Don't use electrical appliances near water. - Keep interior doors unlocked. Caregivers will have difficulty getting to you if you have a seizure behind a locked door. - Use caution when handling hot items/cooking. Avoid carrying pots of hot water or food. - Use caution while doing any activities where you would be a danger to yourself or others if you seize. Garth Roberts MD Neurology, PGY-2 [phone] Pager:[phone] Neurology attending: I have personally interviewed and examined the patient with the resident. I have personally reviewed the labs and imaging. I agree with the details as presented in the note, including the history, examination and plan, that I have edited I have spent 35 min in coordination of discharge and after discharge care for breakthrough seizures and post ictal weakness. 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 Spoke with via phone who reported that earlier this evening, her had his usual seizure - described as right sided face twitching without LOC. However, typically, his seizure will last 5 min utes. Earlier this evening, patient had right sided face twitching for 10 minutes. He then took an extra tab of home lamotrigine (100 mg). He subsequently went into another seizure that lasted around 30 minutes and resolved when EMS gave valium 5 mg. He reportedly had another couple of seizures at OSH, unknown duration and received fosphenytoin 1 g IV, and was later given an additional [address] h ead was done and showed chronic left frontoparietal encephalomalacia. CXR showed possible pneumonia vs atelectasis. He was transferred to [facility] for higher level of care. reports that patient typically has focal seizures - right face twitching, lasting 5 minutes, once per month. He takes lamotrigine 100 mg bid at home. He was on Keppra 500 mg bid at some point in past, but his seizures were not effectively treated on this dose, and he was switched to lamotrigine. denies side effects while on keppra. Patient reports subjective fevers at home recently, but measured temperature at home was normal. Denies cough, diarrhea, and dysuria. Shortly after arrival to [facility], nurse witnessed ~2 minutes of right hand twitching, but no change of consciousness. Per patient, sometimes right hand twitching will preceed his facial twitching. Review of Systems: GEN: No night sweats, weight loss, fatigue, +subjective fevers EYES: No blurred vision, double vision, eye pain ENT: No decreased hearing, nose bleeding, nasal congestion, sore throat CARDIO: No chest pain, palpitation, orthopnea, dyspnea on exertion PULM: No shortness of breath, cough, wheezing, asthma, sputum, hemoptysis GI: No nausea, vomiting, diarrhea, constipation, Abdominal Pain : No frequency, burning, hematuria, nocturia, hesitancy NEURO: As per HPI ENDO: No weight loss, weight gain, heat intolerance, cold intolerance SKIN: No rash, lesion, itching MUSC: No joint pain, muscle pain, arthritis, back pain Past Medical History: 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 Denies alcohol and illicit drug use. Lives with . Going to outpatient PT. Medications: lamotrigine 100 mg bid flomax 0.4 mg daily baclofen 10 mg bid lasix KCl Allergies: Allergies: potassium iodide, Keflex, Levaquin, morphine(Levaquin) Physical Exam: Vitals Tmp(F) Tmp(C) Ttype BP MAP Pulse RR SpO2 FIO2 ETCO2 04 01:58 98.5 36.94 oral 106/65 --- 55 18 99 --- --- 24 Hr Tmax: 98.5F (36.94c) at 04 01:58 Vital Signs are the last 5 in the past 48 hours. 24 Hr Tmin: 98.5F (36.94c) at 04 01:58 Weights are the last 5 in 60 days, plus initial. Date Wt(kg) Wt(lb) Ht(cm) Ht(in) Method BMI BSA 09/28 (initial) 110.45 243.00 175.26 69.00 Estimated 36.0 2.32 APPEARANCE - Active, alert, well developed, well nourished HEAD - Normocephalic and atraumatic EYES - Pupil equal and reactive to light PHARYNX - Mouth pink, mucous membranes moist. No tonsillar enlargement NECK - Supple, thyroid non-palpable, no significant adenopathy LUNGS - Clear to auscultation, no rales or rhonchi CV - Rate rhythm regular, no murmur, equal pulses bilaterally. Pedal edema. ABDOMEN - Soft, non tender, with normal bowel sounds. No hepatosplenomegaly SPINE - Straight, no defects, no scoliosis SKIN: Clear, no rashes NEURO: AAO*2 - knows name and city but not name of hospital. Thought it was 1990. Follows commands. 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 R__4____mm L___4__mm. Visual wetzel intact to confrontation. Eye movements full without nystagmus. Right lower facial palsy. Facial sensation is decreased to light touch on the right. Tongue and palate midline. Motor: Normal bulk and tone on the left. Increased tone on the right (baseline ) Strength is 5/5 proximally and distally on the left limbs. RUE 3/5 proximally , 4/5 at biceps, 3/5 wrist extensors, 4/5 wr ist flexors. RLE 3/5 hip flexors, 4/5 knee flexors, 4+/5 knee extensors, 3/5 dorsiflexors, 4/5 plantar flexors. Sensory: - Decreased to light touch in right hemibody Coordination: No dysmetria on finger-nose on the left. Unable to test on the right due to weakness. Reflexes: 2+ at b/l biceps, brachioradialis, and patella on the left, 3+ on the right. Toes down-going on the left and upgoing on the right. 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 Normal sodium. Labs pending at [facility]. Diagnostic Tests: CT head OSH - pending upload to [facility]. 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 On exam, his is oriented x 2 with baseline right spastic hemiparesis. CT head at OSH showed left frontotemporal encephalomalacia - likely his seizure focus. Breakthrough seizures may be secondary to AED underdosing vs infection vs metabolic derangements Plan: #Focal status epilepticus - s/p fosphenytoin load at OSH. Check post-load level. - load with Keppra 1g IV now given right hand twitching witnessed by nurse ~4 hours after fosphenytoin load at OSH - Will increase home lamotrigine dose from 100 mg bid to 125 mg bid. - Start keppra 1000 mg bid as adjunct AED - check electrolytes including magnesium and phos - U/A - routine EEG to r/o intermittent subclinical seizures - MRI brain stroke limited to r/o acute on chronic infarct that could explain focal status #Possible pneumonia on CXR at OSH (1 view) - will get 2 view CXR - hold on abx for now given patient had no leukocytosis, fever, or cough #BPH - continue home flomax #Spastic right hemiparesis - continue home baclofen Melissa Chin MD Neurology, PGY2 Subjective: No further focal facial twitching. Patient states he still feels weakness in his right arm. Later spoke to who states that her appears to be back to baseline. Requires a walker to ambulate; however room did not have one so had his help with transfers to the bathroom and back to bed. Objective: Vitals Tmp(F) Tmp(C) Ttype BP MAP Pulse RR SpO2 FIO2 ETCO2 09/28 03:40 98.3 36.83 oral 115/74 --- 61 18 98 --- --- 09/28 01:58 98.5 36.94 oral 106/65 --- 55 18 99 --- --- 24 Hr Tmax: 98.5F (36.94c) at 09/28 01:58 24 Hr Tmin: 98.3F (36.83c) at 09/28 03:40 36 Hr Tmax: 98.5F (36.94c) at 09/28 01:58 36 Hr Tmin: 98.3F (36.83c) at 09/28 03:40 Vital Signs are the last 5 in the past 48 hours. Weights are the last 5 in 60 days, plus initial. General Physical Examination: GENERAL: Awake, alert HEENT: - Normocephalic and atraumatic; LUNGS - Clear to auscultation bilaterally CV - S1S2 Regular rate and rhythm ABDOMEN - Soft, nontender EXTREMITIES: no cyanosis, rashes or edema visible MUSCULOSCKELETAL: movements as below, no visible joint erythema/deformity SKIN: No visble rashes, petechaie, purpura Neurology Examination: Higher Function: AAO*2 (year only: 2015, otherwise person and place intact) Speech: spastic dysarthic speech. Cranial nerves: Pupils equal, round, and reactive. R___3___mm L3 mm. Visual wetzel intact to confrontation. Eye movements full without nystagmus. Right facial flattening. . Facial sensation is intact to light touch. Motor: - Spasticity in RUE, RLE - RUE: RLE: 4/5 and 5/5 on left - Reflexes: R Biceps 3+, Triceps 3+, Brachioradialis 3+, Patella 3+ L Biceps 2+, Triceps 2+, Brachioradialis 2+, Patella 2+ Sensory:- Grossly intact to touch Coordination: Intact Finger Nose Test, No dysmetria on heel knee peralta test Gait: narrow-based and steady with appropriate armswing and stride length. 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 On exam, his is oriented x 2 with baseline right spastic hemiparesis. CT head at OSH showed left frontotemporal encephalomalacia - likely his seizure focus. 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 I have personally reviewed the labs and imaging. I agree with the details as presented in the note, including the history, examination and plan, that I have edited. This is a very high compexity case because of an acute change in neurological status (status epilepticus and increased weakness) that could be secondary to a new brain insult, and thta can increase morbidity and mortality.
--- OUTSIDE RECORDS SUMMARY | 2018-08-13 15:13 | XMS REPORT | Summary of Care ---
:1960 Author Organization [facility] Address [address] [place] [id number] Encounter HQ Yves_megan(FIN) [id number] Date(s): 10/10/15 - 11/08/[address] Discharge Disposition: Home Attending Physician: Chano Miramontes MD Vital Signs Most recent to oldest [Reference Range]: 1 2 Blood Pressure [90-140/60-90 mmHg] 109/71 mmHg 128/72 mmHg (10/12/15 12:11 PM) (10/10/15 4:51 PM) Peripheral Pulse Rate [60-100 bpm] 63 bpm 57 bpm (10/12/15 12:11 PM) *LOW* (10/10/15 4:51 PM) Problem List Condition Effective Dates Status [...] and Recorded Vaccine Date Status Refusal Reason influenza virus vaccine, inactivated 07/03/10 Given pneumococcal 23-valent vaccine 07/03/10 Given Procedures Procedure Date Related Diagnosis Body Site Craniotomy Hiatus hernia repair Social History Social History Type Response Alcohol Never Smoking Status Former smoker; Exposure to Tobacco Smoke None; Cigarette Smoking Last 365 Days No; Reg Smoking Cessation Counseling No Assessment and Plan No data available for this section
--- OUTSIDE RECORDS SUMMARY | 2018-08-13 15:13 | XMS REPORT | Summary of Care ---
:1960 Author Organization [facility] Address [address] [place] [id number] Encounter HQ Yves_megan(FIN) [id number] Date(s): 09/07/15 - 10/06/[address] Discharge Disposition: Home Attending Physician: Physician, Non Associated MD Vital Signs Most recent to oldest 1 2 3 [Reference Range]: Blood Pressure [90-140/60-90 113/69 mmHg 108/66 mmHg 127/69 mmHg mmHg] (10/05/15 12:13 PM) (10/03/15 12:27 PM) (09/28/15 1:24 PM) Peripheral Pulse Rate [60-100 66 bpm 62 bpm 53 bpm bpm] (10/05/15 12:13 PM) (10/03/15 12:27 PM) *LOW* (09/28/15 1:24 PM) Problem List Condition Effective Dates Status [...]
--- OUTSIDE RECORDS SUMMARY | 2018-08-13 15:13 | XMS REPORT | Summary of Care ---
:1960 Author Organization [facility] Address [address] [place] [id number] Encounter HQ Raimundor_megan(FIN) [id number] Date(s): 03/13/16 - 03/13/[address] Professional Services provided by [facility] [place] [address]- Discharge Diagnosis: Complex partial epileptic seizure Discharge Disposition: Home or Self Care Attending Physician: Christian Liz MD Vital Signs Most recent to oldest 1 2 3 [Reference Range]: Height 172.72 cm (03/13/16 10:24 AM) Temperature Oral 97.9 DegF 98.0 DegF [96.4-99.1 DegF] (03/13/16 2:00 PM) (03/13/16 10:24 AM) Blood Pressure 139/82 mmHg 135/84 mmHg 135/81 mmHg [90-140/60-90 mmHg] (03/13/16 2:00 PM) (03/13/16 1:00 PM) (03/13/16 11:14 AM ) Respiratory Rate [14-20 18 BRMIN 23 BRMIN 20 BRMIN BRMIN] (03/13/16 2:00 PM) *HI* (03/13/16 11:14 AM) (03/13/16 1:00 PM) Peripheral Pulse Rate 64 bpm [60-100 bpm] (03/13/16 10:24 AM) Weight 102.273 kg (03/13/16 10:24 AM) Body Mass Index 34.28 m2 (03/13/16 10:24 AM) Problem List Condition Effective Dates Status Health Status Informant Altered mental Resolved status(Confirmed)(Improving) At risk of seizures(Confirmed) Active DM (diabetes mellitus)(Confirmed) Resolved Disorder of liver(Confirmed) Resolved Fever(Confirmed)(Stable) Resolved Hernia(Confirmed) Resolved Hypertension(Confirmed)(Improving) Resolved Itching(Confirmed)(Stable) Resolved Pain(Confirmed) Active Pain(Confirmed) Active Seizure(Confirmed) Resolved Seizure precautions(Confirmed) Active Stroke(Confirmed) Resolved Tachypnea(Confirmed)(Improving) Resolved Allergies, Adverse Reactions, Alerts Substance Reaction Severity Status Keflex Active Levaquin Active morphine Levaquin Active potassium iodide Active Medications Keppra + sodium chloride 0.9% 100 mL INJ (for IV set) 100 mL 1,000 mg, Route: IV, ONCE, Dosing Weight 102.273, kg, Start date: 03/13/16 10:53 :00 CDT, Stop date: 03/13/16 10:53:00 CDT Notes: Same as KeppraMix with 100 mL NS, LR or D5W MEDICATION WASTE Product Size: 500 mgProduct Wasted: ___ mg Start Date: 03/13/16 Stop Date: 03/13/16 Status: Completed Results ELECTROLYTES Most recent to oldest [Reference Range]: 1 Sodium Lvl [135-145 mEq/L] 141 mEq/L (03/13/16 10:55 AM) Potassium Lvl [3.5-5.1 mEq/L] 3.5 mEq/L (03/13/16 10:55 AM) Chloride Lvl [95-109 mEq/L] 104 mEq/L (03/13/16 10:55 AM) CO2 [24-32 mEq/L] 28 mEq/L (03/13/16 10:55 AM) AGAP [10.0-20.0 mEq/L] 12.5 mEq/L (03/13/16 10:55 AM) CHEM PANEL Most recent to oldest [Reference Range]: 1 Creatinine Lvl [0.50-1.40 mg/dL] 0.76 mg/dL (03/13/16 10:55 AM) eGFR 101 mL/min/1.73m2 1 *NA* (03/13/16 10:55 AM) BUN [7-22 mg/dL] 17 mg/dL (03/13/16 10:55 AM) Glucose Lvl [70-99 mg/dL] 115 mg/dL *HI* (03/13/16 10:55 AM) Calcium Lvl [8.5-10.5 mg/dL] 8.3 mg/dL *LOW* (03/13/16 10:55 AM) Phosphorus [2.5-4.5 mg/dL] 3.1 mg/dL (03/13/16 10:55 AM) Magnesium Lvl [1.8-2.4 mg/dL] 1.7 mg/dL *LOW* (03/13/16 10:55 AM) 1Result Comment: The eGFR is calculated [...] eGFR should be multiplied by the estimated BMI.TOXICOLOGY Most recent to oldest [Reference Range]: 1 Lamotrigine Lvl [2.0-20.0 ug/ml] 3.8 ug/ml 1 *NA* (03/13/16 10:55 AM) 1Result Comment: Detection Limit=1.0 Performed At: [address] [id number] Toi Man MD Ph:[id number] Most recent to oldest [Reference Range]: 1 WBC [3.7-10.4 K/CMM] 6.2 K/CMM (03/13/16 10:55 AM) RBC [4.70-6.10 M/CMM] 5.38 M/CMM (03/13/16 10:55 AM) Hgb [14.0-18.0 g/dL] 15.4 g/dL (03/13/16 10:55 AM) Hct [42.0-54.0 %] 45.7 % (03/13/16 10:55 AM) MCV [80.0-94.0 fL] 84.9 fL (03/13/16 10:55 AM) MCH [27.0-31.0 pg] 28.7 pg (03/13/16 10:55 AM) MCHC [32.0-36.0 g/dL] 33.8 g/dL (03/13/16 10:55 AM) RDW [11.5-14.5 %] 13.9 % (03/13/16 10:55 AM) Platelet [133-450 K/CMM] 135 K/CMM (03/13/16 10:55 AM) MPV [7.4-10.4 fL] 8.7 fL (03/13/16 10:55 AM) Segs [45.0-75.0 %] 67.1 % (03/13/16 10:55 AM) Lymphocytes [20.0-40.0 %] 20.8 % (03/13/16 10:55 AM) Monocytes [2.0-12.0 %] 9.1 % (03/13/16 10:55 AM) Eosinophils [0.0-4.0 %] 2.2 % (03/13/16 10:55 AM) Basophils [0.0-1.0 %] 0.8 % (03/13/16 10:55 AM) Segs-Bands # [1.5-8.1 K/CMM] 4.2 K/CMM (03/13/16 10:55 AM) Lymphocytes # [1.0-5.5 K/CMM] 1.3 K/CMM (03/13/16 10:55 AM) Monocytes # [0.0-0.8 K/CMM] 0.6 K/CMM (03/13/16 10:55 AM) Eosinophils # [0.0-0.5 K/CMM] 0.1 K/CMM (03/13/16 10:55 AM) Immunizations Given and Recorded Vaccine Date Status [...]
--- NOTE | 2018-08-13 15:43 | RAD REPORT ---
EXAM DESCRIPTION: CT - Ct Stroke Brain Wo Cont - 08/13/2018 3:35 pm CLINICAL HISTORY: Aphasia;Weakness CVA, headache. COMPARISON: Head Brain Wo Cont dated 07/09/2017; Head Brain Wo Cont dated 09/28/2015 TECHNIQUE: All CT scans are performed using dose optimization technique as appropriate and may inclu de automated exposure control or mA/KV adjustment according to patient size. FINDINGS: No intracranial hemorrhage, hydrocephalus or extra-axial fluid collection.Generalized brai n edema seen.Areas of previous craniotomy and gliosis noted in the left superior cerebral hemisphere, unchanged. The paranasal sinuses and mastoids are clear. IMPRESSION: No acute intracranial abnormality. The findings were discussed with ER physician Dr. Faulkner on 08/13/2018 at 3:39 p.m. by telephone.
--- NOTE | 2018-08-13 15:50 | RAD REPORT ---
EXAM DESCRIPTION: RAD - Chest Single View - 08/13/2018 3:42 pm CLINICAL HISTORY: CHEST PAIN Chest pain. COMPARISON: Chest Single View dated 08/29/2017; Chest Pa And Lat (2 Views) dated 02/07/2017; Chest Sing le View dated 09/28/2015; CHEST SINGLE VIEW dated 08/26/2013 FINDINGS: Portable technique limits examination quality. Mild interstitial pulmonary edema suspected. The heart is moderately enlarged with a tortuous thoraci c aorta. No displaced fractures. IMPRESSION: Mild CHF
[2018-08-13 16:10] LABS: Hematocrit 44.2 % (39.6-49.0); Lymphocytes % 9.8 % (15.3-44.8); MPV 10.1 fL (7.6-11.3); Monocytes % 4.8 % (3.3-12.3); RBC Red Blood Cell Count 5.22 M/uL (4.33-5.43)
[2018-08-13 16:11] LABS: Absolute Lymphocytes (CBC) 0.7 K/uL (0.7-4.9); Absolute Monocytes 0.4 K/uL (0.1-1.3); Absolute Neutrophil 6.4 K/uL (1.8-8.0); Basophils % 0.4 % (0-1.3); Eosinophils % 0.1 % (0-4.4)
[2018-08-13 16:17] LABS: Protime INR 1.02
[2018-08-13 16:22] LABS: ALT/SGPT 24 U/L (12-78); AST/SGOT 15 U/L (15-37); Albumin 3.9 g/dL (3.4-5.0); Alkaline Phosphatase 63 U/L (45-117); BUN Blood Urea Nitrogen 10 mg/dL (7-18); Bicarbonate 29 mmol/L (21-32); Bilirubin Direct 0.2 mg/dL (0-0.2); Bilirubin Total 0.6 mg/dL (0.2-1.0); Creatine Phosphokinase 127 U/L (39-308); Glucose Level 124 mg/dL (74-106); Magnesium 1.9 mg/dL (1.8-2.4); Potassium 3.4 mmol/L (3.5-5.1); Protein, Total 7.5 g/dL (6.4-8.2); Sodium Level 137 mmol/L (136-145); Troponin (Emerg Dept Use Only) < 0.02 ng/mL (0.0-0.045)
[2018-08-13 18:00] LABS: Urine Blood NEGATIVE (NEG); Urine Glucose NEGATIVE (NEG); Urine Protein NEGATIVE (NEG); Urine Specific Gravity 1.015 (1.005-1.030); Urine pH 7.5 (5.0-7.0)
--- NOTE | 2018-08-13 20:32 | EDPHYS ---
Physician Documentation [facility] Name: Javier Barragan Age: 58 yrs Sex: Male : 1960 Arrival Date: 08/13/2018 Time: 15:11 Bed 27 Private MD: ED Physician Ori Faulkner HPI: 08/13 17:22 This 58 yrs old Male presents to ER via EMS with complaints of Altered mental jr8 status/aphasia. 17:22 The patient's problem is reported as altered mental status, dysphasia, slurred speech, jr8 incoherent speech, expressive aphasia. Onset: The symptoms/episode began/occurred at an unknown time. Duration: The episode is continuous. Context: occurred at home, occurred while the patient was asleep, at rest. The symptoms are alleviated by nothing. The symptoms are aggravated by nothing. Associated signs and symptoms: The patient has no apparent associated signs or symptoms. Severity of symptoms: At their worst the symptoms were moderate in the emergency department the symptoms are unchanged. Patient's baseline: Neuro: alert and fully oriented, Motor: no deficits, Ambulation: walks without assistance, Speech: normal. The patient has not experienced similar symptoms in the past. The patient has not recently seen a physician. 17:57 Patient family stated that he had prolonged seizure this morning. Following the jr8 procedure has been aphasic with incomprehensible speech. Historical: - Allergies: 15:15 Cephalexin Monohydrate; rv 15:15 Iodine; rv 15:15 Levofloxacin; rv 15:15 Morphine; rv - PMHx: 15:15 CVA; Hernia; Seizures; rv - Immunization history:: Adult Immunizations unknown. - Social history:: Smoking status: unknown. - Ebola Screening: : Patient negative for fever greater than or equal to 101.5 degrees Fahrenheit, and additional compatible Ebola Virus Disease symptoms Patient denies exposure to infectious person Patient denies travel to an Ebola-affected area in the 21 days before illness onset. ROS: 17:56 Unable to obtain ROS due to altered mental status, patient's speech is incomprehensible.jr8 Exam: 18:30 Radiologist reports: negative for acute findings jr8 18:30 Eyes: Pupils equal round and reactive to light, extra-ocular motions intact. Lids and lashes normal. Conjunctiva and sclera are non-icteric and not injected. Cornea within normal limits. Periorbital areas with no swelling, redness, or edema. ENT: Nares patent. No nasal discharge, no septal abnormalities noted. Tympanic membranes are normal and external auditory canals are clear. Oropharynx with no redness, swelling, or masses, exudates, or evidence of obstruction, uvula midline. Mucous membranes moist. Neck: Trachea midline, no thyromegaly or masses palpated, and no cervical lymphadenopathy. Supple, full range of motion without nuchal rigidity, or vertebral point tenderness. No Meningismus. Cardiovascular: Regular rate and rhythm with a normal S1 and S2. No gallops, murmurs, or rubs. Normal PMI, no JVD. No pulse deficits. Respiratory: Lungs have equal breath sounds bilaterally, clear to auscultation and percussion. No rales, rhonchi or wheezes noted. No increased work of breathing, no retractions or nasal flaring. Abdomen/GI: Soft, non-tender, with normal bowel sounds. No distension or tympany. No guarding or rebound. No evidence of tenderness throughout. Back: No spinal tenderness. No costovertebral tenderness. Full range of motion. Skin: Warm, dry with normal turgor. Normal color with no rashes, no lesions, and no evidence of cellulitis. MS/ Extremity: Pulses equal, no cyanosis. Neurovascular intact. Full, normal range of motion. 18:30 Neuro: Orientation: Not oriented to person, place, time, situation, Mentation: slow to respond, Memory: unable to test, Cranial nerves: CN I not tested, CN II- XII are normal as tested, extraocular movements are intact, facial droop noted on right, history of CVA with deficit . Speech is slowed, slurred, Motor: moves all fours, Strength is 3/5 in the right arm and right leg, baseline for patient , seizure activity, is not displayed by the patient, Abnormal movements: there are no abnormal movements. Vital Signs: 15:16 BP 128 / 84 LA; Pulse 96; Resp 17 S; Temp 98.5(O); Pulse Ox 94% on R/A; rv 15:45 BP 132 / 97 RA; Pulse 101; Resp 17 S; Pulse Ox 94% on R/A; rv 16:00 BP 144 / 99 RA; Pulse 98; Resp 13 S; Pulse Ox 95% on R/A; rv 17:00 BP 138 / 98 RA Supine; Pulse 108; Resp 14 S; Pulse Ox 97% on R/A; rv 17:30 BP 142 / 95 RA; Pulse 104; Resp 15 S; Pulse Ox 95% on R/A; rv 21:05 BP 144 / 98 RA; Pulse 96; Resp 18 S; Pulse Ox 97% on R/A; rv MDM: 15:23 Patient medically screened. [facility] 18:30 Data reviewed: vital signs, nurses notes, lab test result(s), EKG, radiologic studies, [facility] CT scan, plain films. Data interpreted: Pulse oximetry: on room air is 95 %. Interpretation: normal. Counseling: I had a detailed discussion with the patient and/or guardian regarding: the historical points, exam findings, and any diagnostic results supporting the discharge/admit diagnosis, lab results, radiology results, the need to transfer to another facility, for higher level of care, [facility] does not immediately have the required specialist. ED course: No neuro on. Need transfer to r/o Miguel's paresis vs. CVA . 20:29 ED course: I reevaluated the patient. [employer] Locom[employer] Firer/Fireman states the patient has not taken jmm seizure medication correctly. Patient is now at baseline per ambulatory care coordinator. Patient does have a baseline aphasia. Symptoms appear most likely due to seizure. They will follow up with neuro and are otherwise given strict return precautions. Steam Locomotive Firer/Fireman understood and agrees with the plan of care. . 08/13 15:24 Order name: CPK; Complete Time: 17:08/13 15:24 Order name: Hepatic Function; Complete Time: 17:08/13 15:24 Order name: Troponin (emerg Dept Use Only); Complete Time: 17:08/13 15:24 Order name: Magnesium; Complete Time: 17:08/13 15:24 Order name: Basic Metabolic Panel; Complete Time: 17:08/13 15:24 Order name: CBC with Diff; Complete Time: 17:08/13 15:24 Order name: Protime (+inr); Complete Time: 17:08/13 15:24 Order name: Ptt, Activated; Complete Time: 17:08/13 15:24 Order name: Stroke CXR 1 View; Complete Time: 16:18 [facility] 08/13 15:24 Order name: CT Stroke Brain w/o Contrast; Complete Time: 16:18 rv 08/13 16:21 Order name: AMMONIA; Complete Time: 17:46 8 08/13 17:18 Order name: Urine Dipstick--Ancillary (enter results); Complete Time: 18:30 bd 08/13 15:24 Order name: EKG; Complete Time: 15:25 [facility] 08/13 15:24 Order name: Accucheck; Complete Time: 15:39 [facility] 08/13 15:24 Order name: Cardiac monitoring; Complete Time: 15:39 [facility] 08/13 15:24 Order name: EKG - Nurse/Tech; Complete Time: 15:39 [facility] 08/13 15:24 Order name: IV Saline Lock; Complete Time: 15:39 [facility] 08/13 15:24 Order name: Labs collected and sent; Complete Time: 15:39 [facility] 08/13 15:24 Order name: NPO; Complete Time: 15:39 [facility] 08/13 15:24 Order name: O2 Per Protocol; Complete Time: 15:39 [facility] 08/13 15:24 Order name: O2 Sat Monitoring; Complete Time: 15:39 [facility] 08/13 15:24 Order name: Stroke Swallow Screen; Complete Time: 15:39 jr Administered Medications: No medications were administered Disposition: 08/14 09:20 Co-signature as Attending Physician, Ori Faulkner MD I agree with the assessment and [facility] plan of care. Disposition: 08/13/18 20:31 Discharged to Home. Impression: Epilepsy and recurrent seizures. - Condition is Stable. - Discharge Instructions: Seizure, Adult. - Medication Reconciliation Form, Thank You Letter, Antibiotic Education, Prescription Opioid Use form. - Follow up: Private Physician; When: 2 - 3 days; Reason: Recheck today's complaints, Continuance of care, Re-evaluation by your physician. Signatures: Dispatcher [employer] Ori Okeefe MD MD cha Mickail, Joel, PA PA jmm Roszak, Josh, PA PA jr8 Uri Frazier, RN RN rv Corrections: (The following items were deleted from the chart) 08/13 15:26 15:24 CT-STROKE BRAIN W/O CONTRAST+CT.RAD.BRZ ordered. EDMS EDMS 18:08 17:16 Brain Wo Cont+MRI.RAD.BRZ ordered. EDMS EDMS 21:08 20:31 08/13/2018 20:31 Discharged to Home. Impression: Epilepsy and recurrent seizures. rv Condition is Stable. Forms are Medication Reconciliation Form, Thank You Letter, Antibiotic Education, Prescription Opioid Use. Follow up: Private Physician; When: 2 - 3 days; Reason: Recheck today's complaints, Continuance of care, Re-evaluation by your physician. lex
--- NOTE | 2018-08-13 20:32 | ER ---
Nurse's Notes [facility] Name: Javier Barragan Age: 58 yrs Sex: Male : 1960 Arrival Date: 08/13/2018 Time: 15:11 Bed 27 Private MD: Diagnosis: Epilepsy and recurrent seizures Presentation: 08/13 15:12 Presenting complaint: EMS states: PATIENT CALLED EMS FOR HEADACHE AND STOMACH PAIN. HE rv HAS HISTORY OF STROKE 2010 AND HERNIA. CARE PROVIDER CAN'T PROVIDE MUCH INFORMATION BUT PATIENT WAS MUMBLING HIS WORDS AND IS PARALYZED WITH RIGHT SIDE. PATIENT ALSO HAD A SEIZURE EARLIER BUT REFUSED TO COME WITH US. Transition of care: patient was not received from another setting of care. Onset of symptoms was August 13, 2018 at 15:00. Risk Assessment: Do you want to hurt yourself or someone else? Patient reports no desire to harm self or others. Initial Sepsis Screen: Does the patient meet any 2 criteria? No. Patient's initial sepsis screen is negative. Does the patient have a suspected source of infection? No. Patient's initial sepsis screen is negative. Care prior to arrival: None. 15:12 Method Of Arrival: EMS: [facility] rv 15:12 Acuity: RUI 3 rv Triage Assessment: 15:49 General: Appears in no apparent distress. uncomfortable, obese, Behavior is calm, rv cooperative. Pain: Complains of pain in HEAD, STOMACH. EENT: No signs and/or symptoms were reported regarding the EENT system. Neuro: Level of Consciousness is awake, alert, obeys commands, Oriented to person, place, Speech is slurred. Cardiovascular: Capillary refill < 3 seconds. Respiratory: Airway is patent. GI: Abdomen is round. : No signs and/or symptoms were reported regarding the genitourinary system. Derm: Skin is intact. Musculoskeletal: No signs and/or symptoms reported regarding the musculoskeletal system. Historical: - Allergies: 15:15 Cephalexin Monohydrate; rv 15:15 Iodine; rv 15:15 Levofloxacin; rv 15:15 Morphine; rv - PMHx: 15:15 CVA; Hernia; Seizures; rv - Immunization history:: Adult Immunizations unknown. - Social history:: Smoking status: unknown. - Ebola Screening: : Patient negative for fever greater than or equal to 101.5 degrees Fahrenheit, and additional compatible Ebola Virus Disease symptoms Patient denies exposure to infectious person Patient denies travel to an Ebola-affected area in the 21 days before illness onset. Screenin:51 Abuse screen: Denies threats or abuse. Denies injuries from another. Nutritional rv screening: No deficits noted. Tuberculosis screening: No symptoms or risk factors identified. The patient has not been NPO before screening. The patient is alert, able to follow commands. The patient exhibits slurred or garbled speech. The patient is exhibiting difficulty speaking. The patient is exhibiting difficulty understanding words. The patient is able to swallow own secretions with no drooling or need for suction. Patient tolerated one teaspoon of water. No drooling, immediate coughing, gurgling, or clearing of the throat was noted. The patient tolerated 90mL of water. No drooling, immediate coughing, gurgling, or clearing of the throat was noted. The patient passed the bedside swallow screening. Oral medications may be given as ordered. Contact Physician for further diet orders. Provider notified of bedside swallow screening results: Kamran SCHAEFER. Fall Risk No fall in past 12 months (0 pts). Secondary diagnosis (15 points) seizures, impaired mobility, CVA, No IV (0 pts). Ambulatory Aid- None/Bed Rest/Nurse Assist (0 pts). Gait- Impaired (20 pts.). Mental Status- Oriented to own ability (0 pts). Total Kraus Fall Scale indicates High Risk Score (45 or more points). Fall prevention measures have been instituted. Side Rails Up X 2 Placed Close to Nursing Station Frequent Obs/Assessments Occuring As available patient and family educated on Fall Prevention Program and Strategies. Assessment: 15:51 Reassessment: SEE TRIAGE NOTES. rv 17:15 Reassessment: Patient appears in no apparent distress at this time. No changes from rv previously documented assessment. Patient and/or family updated on plan of care and expected duration. Pain level reassessed. Patient is alert, oriented x 3, equal unlabored respirations, skin warm/dry/pink. 21:07 Reassessment: Patient appears in no apparent distress at this time. No changes from rv previously documented assessment. Patient and/or family updated on plan of care and expected duration. Pain level reassessed. Patient is alert, oriented x 3, equal unlabored respirations, skin warm/dry/pink. PATIENT AND FAMILY IS AWARE OF THE STATUS. PATIENT OPTED TO BE DISCHARGED. FAMILY IS WELL INSTRUCTED BEFORE DISCHARGE. Vital Signs: 15:16 BP 128 / 84 LA; Pulse 96; Resp 17 S; Temp 98.5(O); Pulse Ox 94% on R/A; rv 15:45 BP 132 / 97 RA; Pulse 101; Resp 17 S; Pulse Ox 94% on R/A; rv 16:00 BP 144 / 99 RA; Pulse 98; Resp 13 S; Pulse Ox 95% on R/A; rv 17:00 BP 138 / 98 RA Supine; Pulse 108; Resp 14 S; Pulse Ox 97% on R/A; rv 17:30 BP 142 / 95 RA; Pulse 104; Resp 15 S; Pulse Ox 95% on R/A; rv 21:05 BP 144 / 98 RA; Pulse 96; Resp 18 S; Pulse Ox 97% on R/A; rv ED Course: 15:11 Patient arrived in ED. rv 15:14 Triage completed. rv 15:15 Inserted saline lock: 20 gauge in left antecubital area, using aseptic technique. Blood rv collected. 15:23 Kamran Clarke PA is PHCP. jr8 15:23 Ori Faulkner MD is Attending Physician. jr8 15:35 CT Stroke Brain w/o Contrast In Process Unspecified. EDMS 15:40 X-ray completed. Portable x-ray completed in exam room. Patient tolerated procedure ml well. 15:42 Stroke CXR 1 View In Process Unspecified. EDMS 15:53 Arm band placed on left wrist. EKG completed in triage. Results shown to MD. rv 15:54 Patient has correct armband on for positive identification. Bed in low position. Call rv light in reach. Side rails up X2. personnel monitor on. Pulse ox on. NIBP on. 16:08 EKG done, by aviation electronics technician. reviewed by Kamran SCHAEFER. sm3 18:53 PHCP role handed off by Kamran Clarke PA [facility] 18:53 Adonay Nguyen PA is PHCP. [facility] 21:06 No provider procedures requiring assistance completed. IV discontinued, bleeding rv controlled, No redness/swelling at site. Pressure dressing applied. Administered Medications: No medications were administered Outcome: 20:31 Discharge ordered by MD. [facility] 21:06 Discharged to home via wheelchair. rv 21:06 Condition: good 21:06 Discharge instructions given to patient, family, Instructed on discharge instructions, follow up and referral plans. Demonstrated understanding of instructions, follow-up care. 21:08 Patient left the ED. rv Signatures: Dispatcher [employer] EDMS Adonay Nguyen PA PA jmm Lopez, Melissa ml Roszak, Josh, PA PA jr8 Eliz Almodovar sm3 Uri Frazier RN RN rv Corrections: (The following items were deleted from the chart) 15:17 15:12 Presenting complaint: EMS states: PATIENT CALLED EMS FOR HEADACHE AND STOMACH rv PAIN. HE HAS HISTORY OF STROKE 2010 AND HERNIA. CARE PROVIDER CAN'T PROVIDE MUCH INFORMATION BUT PATIENT WAS MUMBLING HIS WORDS AND IS PARALYZED WITH RIGHT SIDE. rv
[2018-08-13 23:08] VITALS: TEMP 98.5
[2018-08-13 23:17] VITALS: BP 144/98; O2SAT 97
--- NOTE | 2018-08-14 05:27 | EKG ---
Test Date: 2018-08-13 Test Time: 15:27:39 Title Camera Operator: MIGUEL MEASUREMENT RESULTS: Intervals: Rate: 99 LA: 174 QRSD: 112 QT: 364 QTc: 467 [place]: P: 63 LA: 174 QRS: -36 T: 47 INTERPRETIVE STATEMENTS: Normal sinus rhythm Left axis deviation Cannot rule out Anterior infarct, age undetermined Abnormal ECG Compared to ECG 08/29/2017 00:31:04 Left-axis deviation now present Myocardial infarct finding now present Left anterior fascicular block no longer present Left ventricular hypertrophy no longer present Electronically Signed On 08-14-18 05:27:27 CDT by Darion Cm
== END 2018-08-13 21:08 | disposition home or self-care (01) ==
LOC: ER 15:07
DX: G40.802 Other epilepsy, not intractable, without status epilepticus (principal); Z88.1 Allergy status to other antibiotic agents; Z88.5 Allergy status to narcotic agent; Z88.8 Allergy status to other drugs, medicaments and biological substances; Z91.048 Other nonmedicinal substance allergy status
CPT/HCPCS: 36415; 70450; 71045; 80048; 80076; 81003; 82140; 82550; 82962; 83735; 84484; 85025; 85610; 85730; 93005; 99284

== ENCOUNTER 2019-04-29 19:53 | Emergency (ER) | payer OTHER ==
[2019-04-29 20:55] LABS: Absolute Lymphocytes (CBC) 0.8 K/uL (0.7-4.9); Basophils % 0.5 % (0-1.3); Hematocrit 51.6 % (39.6-49.0); Lymphocytes % 8.6 % (15.3-44.8); MPV 10.2 fL (7.6-11.3); RBC Red Blood Cell Count 5.92 M/uL (4.33-5.43)
[2019-04-29 21:03] LABS: Potassium 3.7 mmol/L (3.5-5.1)
--- NOTE | 2019-04-29 22:35 | EDPHYS ---
Physician Documentation [facility] Name: Javier Barragan Age: 58 yrs Sex: Male : 1960 Arrival Date: 04/29/2019 Time: 19:54 Bed 15 Private MD: ED Physician Gilberto Cowart HPI: 04/29 20:26 This 58 yrs old Male presents to ER via EMS with complaints of Seizure. pkl 20:26 The patient presents with a history of multiple seizures, a total of 2. Character of pkl seizure(s): Loss of consciousness: the patient experienced loss of consciousness, brief. Seizure onset: just prior to arrival. Associated injury: The patient did not suffer any apparent associated injury. Last seizure about 1 year ago. Historical: - Allergies: 20:12 Cephalexin Monohydrate; aa1 20:12 Iodine; aa1 20:12 Levofloxacin; aa1 20:12 Morphine; aa1 - Home Meds: 20:12 baclofen 10 mg Oral tab 1 tab daily [Active]; lamotrigine 100 mg oral tab 1 tab 2 times aa1 per day [Active]; levetiracetam 750 mg oral tab 1 tab 2 times per day [Active]; potassium chloride 20 mEq Oral TbER 1 tab once daily [Active]; Protonix 40 mg Oral TbEC 1 tab once daily [Active]; - PMHx: 20:12 CVA; Hernia; Seizures; R side deficits r/t CVA; aa1 - PSHx: 20:12 Hernia repair; aa1 - Immunization history:: Flu vaccine is not up to date. - Social history:: Smoking status: Patient/guardian denies using tobacco. - Ebola Screening: : Patient negative for fever greater than or equal to 101.5 degrees Fahrenheit, and additional compatible Ebola Virus Disease symptoms. ROS: 20:26 Eyes: Negative for injury, pain, redness, and discharge, ENT: Negative for injury, pkl pain, and discharge, Neck: Negative for injury, pain, and swelling, Cardiovascular: Negative for chest pain, palpitations, and edema, Respiratory: Negative for shortness of breath, cough, wheezing, and pleuritic chest pain, Abdomen/GI: Negative for abdominal pain, nausea, vomiting, diarrhea, and constipation, Back: Negative for injury and pain, : Negative for injury, bleeding, discharge, and swelling, MS/Extremity: Negative for injury and deformity, Skin: Negative for injury, rash, and discoloration. 20:26 Neuro: Positive for seizure activity. Exam: 20:26 Head/Face: Normocephalic, atraumatic. Eyes: Pupils equal round and reactive to light, pkl extra-ocular motions intact. Lids and lashes normal. Conjunctiva and sclera are non-icteric and not injected. Cornea within normal limits. Periorbital areas with no swelling, redness, or edema. ENT: Nares patent. No nasal discharge, no septal abnormalities noted. Tympanic membranes are normal and external auditory canals are clear. Oropharynx with no redness, swelling, or masses, exudates, or evidence of obstruction, uvula midline. Mucous membranes moist. Neck: Trachea midline, no thyromegaly or masses palpated, and no cervical lymphadenopathy. Supple, full range of motion without nuchal rigidity, or vertebral point tenderness. No Meningismus. Chest/axilla: Normal chest wall appearance and motion. Nontender with no deformity. No lesions are appreciated. Cardiovascular: Regular rate and rhythm with a normal S1 and S2. No gallops, murmurs, or rubs. Normal PMI, no JVD. No pulse deficits. Respiratory: Lungs have equal breath sounds bilaterally, clear to auscultation and percussion. No rales, rhonchi or wheezes noted. No increased work of breathing, no retractions or nasal flaring. Abdomen/GI: Soft, non-tender, with normal bowel sounds. No distension or tympany. No guarding or rebound. No evidence of tenderness throughout. Back: No spinal tenderness. No costovertebral tenderness. Full range of motion. Skin: Warm, dry with normal turgor. Normal color with no rashes, no lesions, and no evidence of cellulitis. MS/ Extremity: Pulses equal, no cyanosis. Neurovascular intact. Full, normal range of motion. 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 Vital Signs: 20:12 BP 136 / 85; Pulse 79; Resp 18; Temp 98.3; Pulse Ox 94% on R/A; Weight 113.4 kg; Height aa1 5 ft. 9 in. (175.26 cm); Pain 0/10; 21:37 BP 114 / 75; Pulse 66; Resp 16; Pulse Ox 95% on R/A; Pain 0/10; aa1 22:53 BP 114 / 77; Pulse 82; Resp 16; Temp 98.1; Pulse Ox 96% on R/A; Pain 0/10; aa1 20:12 Body Mass Index 36.92 (113.40 kg, 175.26 cm) aa1 20:12 Hurd-Granados (FACES) aa1 [place] Coma Score: 20:12 Eye Response: spontaneous(4). Verbal Response: incomprehensible(2). Motor Response: aa1 obeys commands(6). Total: 12. MDM: 20:01 Patient medically screened. pkl 22:30 Data reviewed: vital signs, nurses notes, lab test result(s), radiologic studies, CT pkl scan. ED course: Patient feeling better. Alert. Want to go home. Discussed lab. and CT Scan head results with patient and . Advised to follow up with his Neurologist next week. Patient and understood instructions. 04/29 20:26 Order name: CBC with Diff pkl 04/29 20:26 Order name: Chem 7 pkl 04/29 20:26 Order name: CT Head Brain wo Cont pkl 04/29 21:03 Order name: CBC with Automated Diff; Complete Time: 21:18 EDMS 04/29 21:04 Order name: Basic Metabolic Panel; Complete Time: 21:18 EDMS Administered Medications: No medications were administered Disposition: 04/29/19 22:34 Discharged to Home. Impression: Seizure disorder. - Condition is Stable. - Medication Reconciliation Form, Thank You Letter, Antibiotic Education, Prescription Opioid Use form. - Follow up: Private Physician; When: 2 - 3 days; Reason: Re-evaluation by your physician. - Problem is new. - Symptoms have improved. Signatures: Dispatcher [employer] EDMS Silke Rosales RN RN aa1 Gilberto Cowart MD MD pkl Corrections: (The following items were deleted from the chart) 22:51 20:26 IV Saline Lock ordered. pkl aa1 22:56 22:34 04/29/2019 22:34 Discharged to Home. Impression: Seizure disorder. Condition is aa1 Stable. Forms are Medication Reconciliation Form, Thank You Letter, Antibiotic Education, Prescription Opioid Use. Follow up: Private Physician; When: 2 - 3 days; Reason: Re-evaluation by your physician. Problem is new. Symptoms have improved. pkl
--- NOTE | 2019-04-29 22:35 | ER ---
Nurse's Notes [facility] Name: Javier Barragan Age: 58 yrs Sex: Male : 1960 Arrival Date: 04/29/2019 Time: 19:54 Bed 15 Private MD: Diagnosis: Seizure disorder Presentation: 04/29 20:07 Presenting complaint: Significant other states: pt has a hx of seizures and had a aa1 seizure this evening. States, "He had a piece of pie and I didn't know it had alcohol in it and I think that's what caused it." Upon arrival to ED NAD noted. Pt alert but unable to answer questions. reports pt is normally like this for about an hour after he has a seizure. Transition of care: patient was not received from another setting of care. Onset of symptoms was April 29, 2019. Risk Assessment: Do you want to hurt yourself or someone else? Patient reports no desire to harm self or others. Initial Sepsis Screen: Does the patient meet any 2 criteria? No. Patient's initial sepsis screen is negative. Does the patient have a suspected source of infection? No. Patient's initial sepsis screen is negative. Care prior to arrival: Glucose check: 170. 20:07 Method Of Arrival: EMS: [facility] aa1 20:07 Acuity: RUI 3 aa1 Historical: - Allergies: 20:12 Cephalexin Monohydrate; aa1 20:12 Iodine; aa1 20:12 Levofloxacin; aa1 20:12 Morphine; aa1 - Home Meds: 20:12 baclofen 10 mg Oral tab 1 tab daily [Active]; lamotrigine 100 mg oral tab 1 tab 2 times aa1 per day [Active]; levetiracetam 750 mg oral tab 1 tab 2 times per day [Active]; potassium chloride 20 mEq Oral TbER 1 tab once daily [Active]; Protonix 40 mg Oral TbEC 1 tab once daily [Active]; - PMHx: 20:12 CVA; Hernia; Seizures; R side deficits r/t CVA; aa1 - PSHx: 20:12 Hernia repair; aa1 - Immunization history:: Flu vaccine is not up to date. - Social history:: Smoking status: Patient/guardian denies using tobacco. - Ebola Screening: : Patient negative for fever greater than or equal to 101.5 degrees Fahrenheit, and additional compatible Ebola Virus Disease symptoms. Screenin:14 Nutritional screening: No deficits noted. Tuberculosis screening: No symptoms or risk aa1 factors identified. Assessment: 20:14 General: Appears in no apparent distress. comfortable, Behavior is calm, cooperative, aa1 appropriate for age. Pain: Unable to use pain scale. Patient is disoriented. FLACC scale score is 0 out of 10. Neuro: Level of Consciousness is awake, alert, obeys commands, Oriented to Pt unable to answer questions at this time. When asked, pt replies with inaudible words. Cardiovascular: Heart tones S1 S2 present Rhythm is regular. Respiratory: Airway is patent Respiratory effort is even, unlabored, Respiratory pattern is regular, symmetrical. GI: Parent/caregiver reports the patient having vomiting. : No signs and/or symptoms were reported regarding the genitourinary system. EENT: No signs and/or symptoms were reported regarding the EENT system. Derm: Skin is intact, is healthy with good turgor, Skin is pink, warm \\T\\ dry. Musculoskeletal: Circulation, motion, and sensation intact. Capillary refill < 3 seconds. 21:37 Reassessment: Patient appears in no apparent distress at this time. No changes from aa1 previously documented assessment. Patient and/or family updated on plan of care and expected duration. Pain level reassessed. Awaiting CT results. 22:53 Reassessment: Patient appears in no apparent distress at this time. Patient is alert, aa1 oriented x 3, equal unlabored respirations, skin warm/dry/pink. Discussed d/c \\T\\ f/u instructions with pt \\T\\ spouse; denies questions or concerns at this time. Pt assisted to vehicle via wheelchair. Vital Signs: 20:12 BP 136 / 85; Pulse 79; Resp 18; Temp 98.3; Pulse Ox 94% on R/A; Weight 113.4 kg; Height aa1 5 ft. 9 in. (175.26 cm); Pain 0/10; 21:37 BP 114 / 75; Pulse 66; Resp 16; Pulse Ox 95% on R/A; Pain 0/10; aa1 22:53 BP 114 / 77; Pulse 82; Resp 16; Temp 98.1; Pulse Ox 96% on R/A; Pain 0/10; aa1 20:12 Body Mass Index 36.92 (113.40 kg, 175.26 cm) aa1 20:12 Hurd-Granados (FACES) aa1 [place] Coma Score: 20:12 Eye Response: spontaneous(4). Verbal Response: incomprehensible(2). Motor Response: aa1 obeys commands(6). Total: 12. ED Course: 19:54 Patient arrived in ED. ds1 20:01 Gilberto Cowart MD is Attending Physician. pkl 20:07 Silke Rosales RN is Primary Nurse. aa1 20:09 Triage completed. aa1 20:12 Arm band placed on right wrist. aa1 20:14 Patient has correct armband on for positive identification. Placed in gown. Bed in low aa1 position. Call light in reach. Side rails up X2. Adult w/ patient. Seizure precautions initiated. section hand helper on. Pulse ox on. NIBP on. 20:40 Initial lab(s) drawn, by me, sent to lab. Missed attempt(s): 20 gauge in left forearm. aa1 Bleeding controlled, band aid applied, catheter tip intact. 20:47 CT completed. Patient tolerated procedure well. Patient moved to CT via stretcher. Patient moved back from CT. 22:53 No provider procedures requiring assistance completed. Patient did not have IV access aa1 during this emergency room visit. Administered Medications: No medications were administered Outcome: 22:34 Discharge ordered by . pkl 22:53 Discharged to home via wheelchair, with significant other. aa1 22:53 Condition: good 22:53 Discharge instructions given to patient, significant other, Instructed on discharge instructions, follow up and referral plans. Demonstrated understanding of instructions, follow-up care. 22:56 Patient left the ED. aa1 Signatures: Silke Rosales, KEL RN aa1 Gilberto Cowart MD MD pkl [place], Demi ds Berta Mejia
[2019-04-30 06:11] VITALS: BP 114/77; TEMP 98.1; O2SAT 96
--- NOTE | 2019-04-30 10:27 | RAD REPORT ---
EXAM DESCRIPTION: CT - Head Brain Wo Cont - 04/30/2019 2:31 am CLINICAL HISTORY: 58 years Male SEIZURE TECHNIQUE: Contiguous axial CT images obtained through the brain without IV contrast. Coronal and sa gittal reformats also provided. This CT exam was performed according to our departmental dose-optimization program, which includes on e or more of the following dose reduction techniques: automated exposure control, adjustment of the m A and/or kV according to patient size, and/or use of iterative reconstruction technique. COMPARISON: 08/13/2018. FINDINGS: Stable left vertex craniotomy and gliosis. Stable chronic right thalamic lacune. No new pa renchymal attenuation abnormality. No intracranial hemorrhage, extraaxial collection, or evidence of acute transcortical infarction. No midline shift or hydrocephalus. The paranasal sinuses and mastoid air cells are clear. IMPRESSION: No acute intracranial abnormalities. Stable exam. Electronically signed by: Devi Robbins MD 04/29/2019 10:18 PM WOOD [employer] T[employer]ER Due to temporary technical issues with the PACS/Fluency reporting system, reports are being signed by the in house radiologist as a courtesy to ensure prompt reporting. The interpreting radiologist is f ully responsible for the content of the report
== END 2019-04-29 22:56 | disposition home or self-care (01) ==
LOC: ER 19:53
DX: G40.909 Epilepsy, unspecified, not intractable, without status epilepticus (principal); Z88.1 Allergy status to other antibiotic agents; Z88.5 Allergy status to narcotic agent; Z86.73 Personal history of transient ischemic attack (TIA), and cerebral infarction without residual deficits; Z91.048 Other nonmedicinal substance allergy status
CPT/HCPCS: 36415; 70450; 80048; 85025; 99284

== ENCOUNTER 2022-08-13 12:55 | Emergency (ER) | payer OTHER ==
--- OUTSIDE RECORDS SUMMARY | 2022-08-13 13:04 | XMS REPORT | Continuity of Care Document ---
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 [facility] [place] Heart Rate 2015-10-03 17:27:00 [facility] [place] Systolic (mm Hg) 2015-10-03 17:27:00 Elvis rial [place] Diastolic (mm Hg) 2015-10-03 17:27:00 Mem o[facility] [place] Heart Rate 2015-09-30 16:08:00 [facility] [place] Temperature Oral (F) 2015-09-30 16:08:00 97.3 F [facility] [place] Respitory Rate 2015-09-30 16:08:00 Memori al [place] Systolic (mm Hg) 2015-09-30 16:08:00 Elvis rial [place] Diastolic (mm Hg) 2015-09-30 16:08:00 Mem orial [place] Respitory Rate 2015-09-30 12:18:00 Memori al [place] Systolic (mm Hg) 2015-09-30 12:18:00 Elvis rial [place] Diastolic (mm Hg) 2015-09-30 12:18:00 Mem o[facility] [place] Temperature Oral (F) 2015-09-30 12:18:00 97.5 F [facility] Heart Rate 2015-09-30 12:18:00 [facility] Respitory Rate 2015-09-30 09:07:00 Memori al [place] Systolic (mm Hg) 2015-09-30 09:07:00 Elvis rial [place] Diastolic (mm Hg) 2015-09-30 09:07:00 Mem orial [place] Heart Rate 2015-09-30 09:07:00 [facility] Temperature Oral (F) 2015-09-30 09:07:00 97.9 F [facility] Height 2015-09-29 08:07:00 175.26 cm [facility] [place] Weight 2015-09-29 08:07:00 [facility] [place] BMI Calculated 2015-09-29 08:07:00 Memori al [place] Heart Rate 2015-09-28 18:24:00 [facility] Systolic (mm Hg) 2015-09-28 18:24:00 Elvis rial [place] Diastolic (mm Hg) 2015-09-28 18:24:00 Mem orial [place] Systolic (mm Hg) 2015-09-05 16:34:00 Elvis rial Valentin Diastolic (mm Hg) 2015-09-05 16:34:00 Mem orial [place] Systolic (mm Hg) 2015-08-29 17:44:00 Elvis rial [place] Diastolic (mm Hg) 2015-08-29 17:44:00 Mem o[facility] [place] Systolic (mm Hg) 2015-08-24 21:49:00 Elvis rial [place] Diastolic (mm Hg) 2015-08-24 21:49:00 Mem orial [place] Heart Rate 2015-08-24 21:49:00 [facility] [place] Heart Rate 2015-08-10 23:41:00 [facility] [place] Heart Rate 2015-08-08 19:08:00 [facility] [place] Heart Rate 2015-06-27 15:27:00 [facility] [place] Systolic (mm Hg) 2015-06-27 15:27:00 Elvis rial Valentin Diastolic (mm Hg) 2015-06-27 15:27:00 Mem orial [place] Height 2015-06-27 15:27:00 182.88 cm [facility] Procedures Procedure Date / Time Performed Performing Clinician Alcon cooney BOTULINUM TOXIN 2022-04-29 19:20:47 Javad Miramontes spital INJECTION SARS-COV-2 COVID-19 2022-04-04 19:13:54 Doctor Unassigned, No [facility] [place] MIKE-SUCROSE VACCINE Name [facility] 12 YRS+, BIVALENT 0.3ML, IM, (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) BOTULINUM TOXIN 2021-09-11 20:02:00 Javad Miramontes Ho spital INJECTION SARS-COV-2 COVID-19 2021-06-27 22:30:10 Doctor Unassigned, No [facility] [place] VACCINE 12 Name [facility] YRS+,0.3ML,IM (PFIZER - DAÍZ TOP) CONSENT/REFUSAL FOR 2021-06-27 22:13:13 Doctor Unassigned, No [facility] [place] DIAGNOSIS AND Name [facility] TREATMENT Craniotomy [facility] Hiatus hernia repair [facility] Plan of Care Planned Activity Planned Date Details Comments Source Future Scheduled 2022 Hepatitis C screening [facility] Test 17:03:14 (procedure) [code = 518865301] Future Scheduled 2022 COLONOSCOPY SCREENING [facility] Test 17:03:14 [code = COLONOSCOPY SCREENING] Future Scheduled 2022 SHINGLES VACCINES (1 Met [facility] Test 17:03:14 of 2) [code = SHINGLES VACCINES (1 of 2)] Future Scheduled 2022 COVID-19 VACCINE (3 - [facility] Test 17:03:14 Booster for Pfizer series) [code = COVID-19 VACCINE (3 - Booster for Pfizer series)] Future Scheduled 2022 INFLUENZA VACCINE Method [facility] Test 17:03:14 [code = INFLUENZA VACCINE] Encounters Start End Encounter Admission Attending Care Care Encounter Source Date/Time Date/Time Type Type Clinicians Facility Department ID 2022-07-10 Outpatient ED [facility] [id number] [place] 08:31:[id number] [place] [address] 2022-06-29 2022-06-29 Refill Aníbal, 1.2.840.1 [id number] Methodi 00:00:00 00:00:[address] 3.430.2.7 Hospit a .3.641387 l .8 2022-04-29 2022-04-29 Procedure Lidiadeanna, 1.2.840.1 [id number] Methodi 08:45:00 09:56:44 visit Javad Higginbotham 17193.1.[address] 3.430.2.7 Hospit a .3.879010 l .8 2022-04-29 2022-04-29 Outpatient ANÍBALHO, [facility] [id number] [address] 00:00:00 00:00:00 JAVAD [address] 2022-04-29 2022-04-29 Travel 1.2.840.1 1.2.916.180 [id number] Methodi 00:00:00 00:00:[address] 3.430.2.7 0.2.7.3.698 spita .3.711206 084.8 l .8 2022-04-04 2022-04-04 Outpatient Srinivas RICHARDSON, [facility] [id number] Univers 14:00:00 14:32:56 WESLEY meier [facility] 2022-04-04 2022-04-04 Imm/Inj Vaccine, Ang Db Cbc Fam [facility] 1. 2.840.114 [id number] Univers 14:00:00 14:10:00 Visit Unknown, Attending HEALTH 350.1.13.10 [facility] 4.2.7.2.686 Ramone as ISMA?BLEA [phone] Il karin[address] MEDICAL OFFICE BUILDING 2022-03-06 2022-03-06 Telemedici Kulwinder, 1.2.840.1 [id number] Methodi 11:15:00 11:26:31 ne Javad C. 59600.1.[address] 3.430.2.7 Hospit a .3.941775 l .8 2022-03-06 2022-03-06 Outpatient [facility], [facility] [id number] [address] 00:00:00 00:00:00 JAVAD [address] 2022-03-06 2022-03-06 Refill Kulwinder, 1.2.840.1 [id number] Methodi 00:00:00 00:00:00 Javad [address]am [address] 3.430.2.7 Hospit a .3.917398 l .8 2022-01-17 2022-01-17 Refill Kulwinder, 1.2.840.1 [id number] Methodi 00:00:00 00:00:[address]ie [address] 3.430.2.7 Hospit a .3.693363 l .8 2021-09-11 2021-09-11 Procedure Kulwinder, 1.2.840.1 [id number] [id number] Methodi 14:35:00 14:35:00 visit Javad Higginbotham [address]8400.1.[address] 3.430.2.7 Hospit a .3.347975 l .8 2021-09-11 2021-09-11 Outpatient [facility] [id number] [address] 00:00:00 00:00:00 JAVAD 983 Method i 2021-09-11 2021-09-11 Travel 1.2.840.1 1.2.522.753 [id number] [id number] Methodi 00:00:00 00:00:00 35473.1.1 350.1.13.43 688 3.430.2.7 0.2.7.3.698 Ho spita .3.990223 084.8 l .8 2021-06-27 2021-06-27 Imm/Inj Vaccine, Ang Db Cbc Fam [facility] 1. 2.840.114 [id number] [facility] 16:00:00 16:10:00 Visit Peace Harp [facility] 350.1.13.10 ity [facility] 4.2.7.2.686 Ramone as ISMA?BLEA [phone] [address] MEDICAL OFFICE [facility] 2021-06-27 2021-06-27 Outpatient R RANJIT [facility] [id number] [facility] 16:00:00 16:00:00 PEACE meier [facility] 2021-06-27 2021-06-27 Orders Doctor CHAVEZ 1.2.840.114 [id number] Univers 00:00:00 00:00:00 Only Unassigned, YARIEL 350.1.13.10 ity of [place] [facility] 4.2.7.2.686 Ramone as [phone] [address] 2021-06-12 2021-06-12 Outpatient [facility] [id number] Springer 00:00:00 00:00:00 JAVAD 882 Method i 2021-03-21 2021-03-21 Outpatient [facility] [id number] Springer 00:00:00 00:00:00 JAVAD 557 Method i 2021-03-10 2021-03-10 KATHY Acosta 1.2.840.114 [id number] [facility] 00:00:00 00:00:00 (Out) Marlin SALDIVAR 350.1.13.10 i ty of [facility] 4.2.7.2.686 Ramone as [phone] [address] 2021-03-09 2021-03-09 Laboratory Only, Ang Db Test [facility] 1.2.8 40.114 [id number] Univers 16:58:49 17:13:49 Only Eneida, [facility] 350.1.13.10 ity of [place] 4.2.7.2.686 Ramone as Isma?Blea [phone] Il dical [address] Medical Office Building 2021-03-09 2021-03-09 Outpatient R [facility] [id number] Univers 17:00:00 17:00:00 ity [facility] 2019-11-26 2019-11-26 Outpatient KULWINDER, [facility] [id number] [address] [place] [address] 00:00:00 00:00:00 JAVAD [address] 2018-03-27 2018-03-27 Recurring nullFlavo [facility] [id number] Memoria 22:00:00 22:11:[address] Valentin Valetnin 2018-03-27 2018-03-27 Recurring nullFlavo [facility] [id number] Memoria 22:00:00 22:11:[address] Valentin Hanson 2018-03-27 2018-03-27 Outpatient Kulwinder, SIOBHANTIRR M[facility] [id number] 17:00:00 17:11:00 Javad 11 2017-12-09 2018-01-08 Tots nullFlavo [facility] [id number] Memoria 15:00:00 04:59:00 Therapy [facility] 10 Valentin Hanson 2017-12-09 2018-01-08 Tots nullFlavo [facility] [id number] Memoria 15:00:00 04:59:00 Therapy [facility] 10 Valentin [place] 2017-12-09 2018-01-07 Outpatient Kulwinder, SIOBHANTIRR [facility] [id number] 10:00:00 23:59:00 Javad 10 2017-11-06 2017-12-06 Tots nullFlavo [facility] [id number] Memoria 13:00:00 04:59:00 Therapy [facility] 09 [facility] 2017-11-06 2017-12-06 Tots nullFlavo [facility] [id number] Memoria 13:00:00 04:59:00 Therapy r [facility] 09 [facility] 2017-11-06 2017-12-05 Outpatient SIOBHAN MiramontesTIRSrinivas [facility] [id number] 08:00:00 23:59:00 Javad 2017-10-07 2017-11-06 Tots nullFlavo [facility] [id number] Memoria 13:00:00 04:59:00 Therapy r [facility] 02 [facility] 2017-10-07 2017-11-06 Tots nullFlavo [facility] [id number] Memoria 13:00:00 04:59:00 Therapy r [facility] 02 [facility] 2017-10-07 2017-11-05 Outpatient Physician, MHTIRR [facility] [id number] 08:00:00 23:59:00 Non 02 Associated 2016-03-13 2016-03-13 Emergency nullFlavo [facility] [id number] Memoria 15:18:00 19:15:00 sriinvas Valentin 00 [facility] 2016-03-13 2016-03-13 Emergency nullFlavo [facility] [id number] Memoria 15:18:00 19:15:00 r [place] 00 [facility] 2016-03-13 2016-03-13 Outpatient Agusto [facility] [id number] 10:18:00 14:15:00 Christian Regan 2015-10-10 2015-11-09 Tots nullFlavo [facility] [id number] Memoria 13:00:00 04:59:00 Therapy r [facility] 06 [facility] 2015-10-10 2015-11-09 Tots nullFlavo [facility] [id number] Memoria 13:00:00 04:59:00 Therapy r [facility] 06 [facility] 2015-10-10 2015-11-08 Outpatient Kulwinder COLE [facility] [id number] 08:00:00 23:59:00 Javad 2015-09-07 2015-10-07 Tots nullFlavo [facility] [id number] Memoria 13:00:00 04:59:00 Therapy r [facility] 05 [facility] 2015-09-07 2015-10-07 Tots nullFlavo [facility] [id number] Memoria 13:00:00 04:59:00 Therapy r [facility] 05 Valentin Freireann 2015-09-07 2015-10-06 Outpatient Physician, TIRR [facility] [id number] 08:00:00 23:59:00 Non 05 Associated 2015-09-29 2015-09-30 OBS nullFlavo [facility] [id number] Memoria 07:32:00 18:13:00 Observatio r Valentin 20 l n Patient [facility] 2015-09-29 2015-09-30 OBS nullFlavo [facility] [id number] Memoria 07:32:00 18:13:00 Observatio r [place] 20 l n [facility] 2015-09-29 2015-09-30 Outpatient Devante [facility] [id number] 02:32:00 13:13:00 Raj 20 2015-08-08 2015-09-07 Tots nullFlavo [facility] [id number] Memoria 14:00:00 04:59:00 Therapy r [facility] 01 Valentin Hanson 2015-08-08 2015-09-07 Tots nullFlavo [facility] [id number] Memoria 14:00:00 04:59:00 Therapy r [facility] emelia Hanson 2015-08-08 2015-09-06 Outpatient Physician, TIRR [facility] [id number] 08:00:00 23:59:00 Non 01 Associated 2015-06-28 2015-07-28 Tots nullFlavo [facility] [id number] Memoria 14:00:00 05:59:00 Therapy r [facility] 00 Valentin Freireann 2015-06-28 2015-07-28 Tots nullFlavo [facility] [id number] Memoria 14:00:00 05:59:00 [facility] 2015-06-28 2015-07-27 [id number] 08:00:00 23:59:00 Non 00 Associated Results Test Description Test Time Test Comments Results Result Comments Source CHEM PANEL 2016-03-13 15:55:00 Test Item Value Reference Range Interpretation Comme nts Calcium Lvl (test code = Calcium Lvl) 8.3 8.5-10.5 [facility]2016-10-12 15:55:00 Test Item Value Reference Range Interpretation Comments Glucose Lvl (test code = Glucose Lvl) 115 70-99 [facility]2016-10-12 15:55:00 Test Item Value Reference Range Interpretation Comments AGAP (test code = AGAP) 12.5 10.0-20.0 [facility]2016-10-12 15:55:00 Test Item Value Reference Range Interpretation Comments Phosphorus (test code = Phosphorus) 3.1 2.5-4.5 [facility]2016-10-12 15:55:00 Test Item Value Reference Range Interpretation Comments Magnesium Lvl (test code = Magnesium 1.7 1.8-2.4 Lvl) [facility] CenterCbqpdtzGUGRQYMAOJ0904-77-98 15:55:00 Test Item Value Reference Range Interpretation Comments Eosinophils # (test code 0.1 See_Comment [A utomated message] The = Eosinophils #) system whic h generated this result tra nsmitted reference range : <=0.5. The reference r cheko was not used to int erpret this result as normal/abnormal . [facility] [place] [facility] CenterPbibeiaNBLDCNIIVG1118-29-94 15:55:00 Test Item Value Reference Range Interpretation Comments Monocytes # (test code 0.6 See_Comment [Aut omated message] The = Monocytes #) system which generated this result tra nsmitted reference range : <=0.8. The reference r cheko was not used to int erpret this result as normal/abnormal . [facility] [place] [facility] CenterXbleepnHVSBBQCMTK7779-95-15 15:55:00 Test Item Value Reference Range Interpretation Comments Lymphocytes # (test code = Lymphocytes 1.3 1.0-5.5 #) [facility] [place] [facility] CenterFeyftgpJBFRMUXEHB9946-30-41 15:55:00 Test Item Value Reference Range Interpretation Comments Segs-Bands # (test code = Segs-Bands #) 4.2 1.5-8.1 [facility] [place] [facility] CenterQtlmljmGUIKPRJVQM9188-58-15 15:55:00 Test Item Value Reference Range Interpretation Comments Basophils (test code = 0.8 See_Comment [Aut omated message] The Basophils) system which ge nerated this result tra nsmitted reference range : <=1.0. The reference r cheko was not used to int erpret this result as normal/abnormal . [address]10-12 15:55:00 Test Item Value Reference Range Interpretation Comments Segs (test code = Segs) 67.1 45.0-75.0 [facility] [place] [facility] CenterWxynmlwXXPCSLAAYX5900-70-41 15:55:00 Test Item Value Reference Range Interpretation Comments Monocytes (test code = Monocytes) 9.1 2.0-12.0 [facility] [place] [facility] CenterFlzpeelSYLTYESSLL7021-58-98 15:55:00 Test Item Value Reference Range Interpretation Comments Lymphocytes (test code = Lymphocytes) 20.8 20.0-40.0 [facility] [place] [facility] CenterPjinktqETIROCLWQF6375-14-55 15:55:00 Test Item Value Reference Range Interpretation Comments Eosinophils (test code = 2.2 See_Comment [A utomated message] The Eosinophils) system which ge nerated this result tra nsmitted reference range : <=4.0. The reference r cheko was not used to int erpret this result as normal/abnormal . [facility] CenterGalcfyxOIPJFTQCSI5616-60-04 15:55:00 Test Item Value Reference Range Interpretation Comments MPV (test code = MPV) 8.7 7.4-10.4 [facility] CenterVrefuglTEMFTZLMEH2923-07-96 15:55:00 Test Item Value Reference Range Interpretation Comments Platelet (test code = Platelet) 135 133-450 [facility] CenterLhqomdaPJMCIYMJAP9457-18-95 15:55:00 Test Item Value Reference Range Interpretation Comments RDW (test code = RDW) 13.9 11.5-14.5 [facility] CenterDgadbruRMVYUGMMZO2582-30-11 15:55:00 Test Item Value Reference Range Interpretation Comments MCHC (test code = MCHC) 33.8 32.0-36.0 [facility] CenterCfzuuroLNTCEXBNFS4059-02-53 15:55:00 Test Item Value Reference Range Interpretation Comments MCH (test code = MCH) 28.7 pg 27.0-31.0 [facility] CenterWukkysaUXTZHHVQQF2954-47-73 15:55:00 Test Item Value Reference Range Interpretation Comments RBC (test code = RBC) 5.38 4.70-6.10 [facility] CenterNufxwhrNMHVOYTECX5769-70-70 15:55:00 Test Item Value Reference Range Interpretation Comments MCV (test code = MCV) 84.9 80.0-94.0 [facility] CenterXfnhhobXEKLRPCGUW6490-86-15 15:55:00 Test Item Value Reference Range Interpretation Comments WBC (test code = WBC) 6.2 3.7-10.4 [facility] CenterSirdjqgEQHWKEETAE7233-66-58 15:55:00 Test Item Value Reference Range Interpretation Comments Hgb (test code = Hgb) 15.4 14.0-18.0 [facility] CenterRnfalqsEBOZNGSPIE7804-01-90 15:55:00 Test Item Value Reference Range Interpretation Comments Hct (test code = Hct) 45.7 42.0-54.0 [facility]OdvxsvkNNESJYONBZ2514-39-34 15:55:00 Test Item Value Reference Range Interpretation Comments Lamotrigine Lvl (test code = 3.8 2.0-20.0 Lamotrigine Lvl) [facility]2016-10-12 15:55:00 Test Item Value Reference Range Interpretation Comments eGFR (test code = eGFR) 101 [facility]2016-10-12 15:55:00 Test Item Value Reference Range Interpretation Comments BUN (test code = BUN) 17 7-22 [facility]2016-10-12 15:55:00 Test Item Value Reference Range Interpretation Comments Creatinine Lvl (test code = Creatinine 0.76 0.50-1.40 Lvl) [facility]2016-10-12 15:55:00 Test Item Value Reference Range Interpretation Comments Sodium Lvl (test code = Sodium Lvl) 141 135-145 [facility]2016-10-12 15:55:00 Test Item Value Reference Range Interpretation Comments Potassium Lvl (test code = Potassium 3.5 3.5-5.1 Lvl) [facility]2016-10-12 15:55:00 Test Item Value Reference Range Interpretation Comments Chloride Lvl (test code = Chloride Lvl) 104 95-109 [facility]2016-10-12 15:55:00 Test Item Value Reference Range Interpretation Comments CO2 (test code = CO2) 28 24-32 [facility]2016-10-12 15:55:00 Test Item Value Reference Range Interpretation Comments Calcium Lvl (test code = Calcium Lvl) 8.3 8.5-10.5 [facility]2016-10-12 15:55:00 Test Item Value Reference Range Interpretation Comments Glucose Lvl (test code = Glucose Lvl) 115 70-99 [facility]2016-10-12 15:55:00 Test Item Value Reference Range Interpretation Comments AGAP (test code = AGAP) 12.5 10.0-20.0 [facility]2016-10-12 15:55:00 Test Item Value Reference Range Interpretation Comments Phosphorus (test code = Phosphorus) 3.1 2.5-4.5 [facility]2016-10-12 15:55:00 Test Item Value Reference Range Interpretation Comments Magnesium Lvl (test code = Magnesium 1.7 1.8-2.4 Lvl) [facility] CenterAbpzanzOYWKXQHWMR9969-98-98 15:55:00 Test Item Value Reference Range Interpretation Comments Eosinophils # (test code 0.1 See_Comment [A utomated message] The = Eosinophils #) system whic h generated this result tra nsmitted reference range : <=0.5. The reference r cheko was not used to int erpret this result as normal/abnormal . [facility] CenterEdfhlgmAOKSUGQVZN0369-24-86 15:55:00 Test Item Value Reference Range Interpretation Comments Monocytes # (test code 0.6 See_Comment [Aut omated message] The = Monocytes #) system which generated this result tra nsmitted reference range : <=0.8. The reference r cheko was not used to int erpret this result as normal/abnormal . [facility] CenterGdqwueuDQTXOGUAIE6166-28-23 15:55:00 Test Item Value Reference Range Interpretation Comments Lymphocytes # (test code = Lymphocytes 1.3 1.0-5.5 #) [facility] CenterQmazuwxALKXZVOXIS0366-73-22 15:55:00 Test Item Value Reference Range Interpretation Comments Segs-Bands # (test code = Segs-Bands #) 4.2 1.5-8.1 [facility] CenterIenliklHEUMMMGZXN6484-34-61 15:55:00 Test Item Value Reference Range Interpretation Comments Basophils (test code = 0.8 See_Comment [Aut omated message] The Basophils) system which ge nerated this result tra nsmitted reference range : <=1.0. The reference r cheko was not used to int erpret this result as normal/abnormal . [facility] CenterBzbjzjjDJHEFRVZGQ1742-11-92 15:55:00 Test Item Value Reference Range Interpretation Comments Segs (test code = Segs) 67.1 45.0-75.0 [facility] CenterKallycrSPPKKLCAFS5715-54-09 15:55:00 Test Item Value Reference Range Interpretation Comments Monocytes (test code = Monocytes) 9.1 2.0-12.0 [facility] CenterQdlqoemDQRZRKWQWZ9611-10-33 15:55:00 Test Item Value Reference Range Interpretation Comments Lymphocytes (test code = Lymphocytes) 20.8 20.0-40.0 [facility] CenterNdgmmssQBQPHNXSWF2768-96-27 15:55:00 Test Item Value Reference Range Interpretation Comments Eosinophils (test code = 2.2 See_Comment [A utomated message] The Eosinophils) system which ge nerated this result tra nsmitted reference range : <=4.0. The reference r cheko was not used to int erpret this result as normal/abnormal . [facility] CenterJrfygiqECIXUDSYNV2332-11-37 15:55:00 Test Item Value Reference Range Interpretation Comments MPV (test code = MPV) 8.7 7.4-10.4 [facility] CenterYdhqsxzXZCVNPFUOH5392-09-53 15:55:00 Test Item Value Reference Range Interpretation Comments Platelet (test code = Platelet) 135 133-450 [facility] CenterZqhtloxSEMYWXAQZX6340-26-96 15:55:00 Test Item Value Reference Range Interpretation Comments RDW (test code = RDW) 13.9 11.5-14.5 [facility] CenterTvyhwmtZFBIOJIHZV2436-67-03 15:55:00 Test Item Value Reference Range Interpretation Comments MCHC (test code = MCHC) 33.8 32.0-36.0 [facility] CenterQdfoanfAPIBHZCZAY2783-50-32 15:55:00 Test Item Value Reference Range Interpretation Comments MCH (test code = MCH) 28.7 pg 27.0-31.0 [facility] CenterXjywcrlFAIJAGTSJW6596-83-62 15:55:00 Test Item Value Reference Range Interpretation Comments RBC (test code = RBC) 5.38 4.70-6.10 [facility] CenterElrutehIWNZLRRFSD9495-29-04 15:55:00 Test Item Value Reference Range Interpretation Comments MCV (test code = MCV) 84.9 80.0-94.0 [facility] CenterGgvoryiTEPRHNZXTE4149-67-78 15:55:00 Test Item Value Reference Range Interpretation Comments WBC (test code = WBC) 6.2 3.7-10.4 [facility] CenterPcokzsfMOKRIDAUFG2496-11-24 15:55:00 Test Item Value Reference Range Interpretation Comments Hgb (test code = Hgb) 15.4 14.0-18.0 [facility]IkpxabaDMHNYUWEWW6677-03-76 15:55:00 Test Item Value Reference Range Interpretation Comments Hct (test code = Hct) 45.7 42.0-54.0 [facility]DsrgvmkBMUPTWQMRU0876-40-01 15:55:00 Test Item Value Reference Range Interpretation Comments Lamotrigine Lvl (test code = 3.8 2.0-20.0 Lamotrigine Lvl) [facility]2016-10-12 15:55:00 Test Item Value Reference Range Interpretation Comments eGFR (test code = eGFR) 101 [facility]2016-10-12 15:55:00 Test Item Value Reference Range Interpretation Comments BUN (test code = BUN) 17 7-22 [facility]2016-10-12 15:55:00 Test Item Value Reference Range Interpretation Comments Creatinine Lvl (test code = Creatinine 0.76 0.50-1.40 Lvl) [facility]2016-10-12 15:55:00 Test Item Value Reference Range Interpretation Comments Sodium Lvl (test code = Sodium Lvl) 141 135-145 [facility]2016-10-12 15:55:00 Test Item Value Reference Range Interpretation Comments Potassium Lvl (test code = Potassium 3.5 3.5-5.1 Lvl) [facility]2016-10-12 15:55:00 Test Item Value Reference Range Interpretation Comments Chloride Lvl (test code = Chloride Lvl) 104 95-109 [facility]2016-10-12 15:55:00 Test Item Value Reference Range Interpretation Comments CO2 (test code = CO2) 28 24-32 [facility]2016-10-12 15:55:00 Test Item Value Reference Range Interpretation Comments Calcium Lvl (test code = Calcium Lvl) 8.3 8.5-10.5 [facility]2016-10-12 15:55:00 Test Item Value Reference Range Interpretation Comments Glucose Lvl (test code = Glucose Lvl) 115 70-99 [facility]2016-10-12 15:55:00 Test Item Value Reference Range Interpretation Comments AGAP (test code = AGAP) 12.5 10.0-20.0 [facility]2016-10-12 15:55:00 Test Item Value Reference Range Interpretation Comments Phosphorus (test code = Phosphorus) 3.1 2.5-4.5 [facility]2016-10-12 15:55:00 Test Item Value Reference Range Interpretation Comments Magnesium Lvl (test code = Magnesium 1.7 1.8-2.4 Lvl) [facility] CenterAjaixqsDEFEROCSPD5977-07-86 15:55:00 Test Item Value Reference Range Interpretation Comments Eosinophils # (test code 0.1 See_Comment [A utomated message] The = Eosinophils #) system whic h generated this result tra nsmitted reference range : <=0.5. The reference r cheko was not used to int erpret this result as normal/abnormal . [facility] CenterZjkqfyzLJRLYWPBDG3047-95-32 15:55:00 Test Item Value Reference Range Interpretation Comments Monocytes # (test code 0.6 See_Comment [Aut omated message] The = Monocytes #) system which generated this result tra nsmitted reference range : <=0.8. The reference r cheko was not used to int erpret this result as normal/abnormal . [facility] CenterZiwtszvTSJPICVFBS1107-73-80 15:55:00 Test Item Value Reference Range Interpretation Comments Lymphocytes # (test code = Lymphocytes 1.3 1.0-5.5 #) [facility] CenterIncptbcTWAIFWZPEI4112-18-27 15:55:00 Test Item Value Reference Range Interpretation Comments Segs-Bands # (test code = Segs-Bands #) 4.2 1.5-8.1 [facility] CenterGjthrwcYICVDXAPAA0580-32-80 15:55:00 Test Item Value Reference Range Interpretation Comments Basophils (test code = 0.8 See_Comment [Aut omated message] The Basophils) system which ge nerated this result tra nsmitted reference range : <=1.0. The reference r cheko was not used to int erpret this result as normal/abnormal . [facility] CenterYqzyoupBWTELXTNYT3977-10-69 15:55:00 Test Item Value Reference Range Interpretation Comments Segs (test code = Segs) 67.1 45.0-75.0 [facility] CenterKfrfnxyKNJOBTOBRI0483-09-18 15:55:00 Test Item Value Reference Range Interpretation Comments Monocytes (test code = Monocytes) 9.1 2.0-12.0 [facility] CenterOidspgbDJNEPROIBW9891-48-33 15:55:00 Test Item Value Reference Range Interpretation Comments Lymphocytes (test code = Lymphocytes) 20.8 20.0-40.0 [facility] CenterPsszwifCXDNSPQEGT4290-82-87 15:55:00 Test Item Value Reference Range Interpretation Comments Eosinophils (test code = 2.2 See_Comment [A utomated message] The Eosinophils) system which ge nerated this result tra nsmitted reference range : <=4.0. The reference r cheko was not used to int erpret this result as normal/abnormal . [facility] CenterLpxzbgdTRZLNBAKMY1449-83-12 15:55:00 Test Item Value Reference Range Interpretation Comments MPV (test code = MPV) 8.7 7.4-10.4 [facility] CenterKfoftzdILJWIKWJAZ7046-39-31 15:55:00 Test Item Value Reference Range Interpretation Comments Platelet (test code = Platelet) 135 133-450 [facility] CenterNtahuaqCAELXCOXUB7437-02-18 15:55:00 Test Item Value Reference Range Interpretation Comments RDW (test code = RDW) 13.9 11.5-14.5 [facility] CenterFboxqxoULOGUJAKOC0758-17-82 15:55:00 Test Item Value Reference Range Interpretation Comments MCHC (test code = MCHC) 33.8 32.0-36.0 [facility] CenterEgrqianUUAIXKNDIP4827-97-20 15:55:00 Test Item Value Reference Range Interpretation Comments MCH (test code = MCH) 28.7 pg 27.0-31.0 [facility] CenterOnzqhcdWVQIVONENH0289-74-39 15:55:00 Test Item Value Reference Range Interpretation Comments RBC (test code = RBC) 5.38 4.70-6.10 [facility] CenterHwggxxfJIHYKTGKDT4980-78-94 15:55:00 Test Item Value Reference Range Interpretation Comments MCV (test code = MCV) 84.9 80.0-94.0 [facility] CenterJhrbwpiCUPDJXYHXF0624-39-89 15:55:00 Test Item Value Reference Range Interpretation Comments WBC (test code = WBC) 6.2 3.7-10.4 [facility] CenterKklphmaTJJZLGXQXG5549-42-40 15:55:00 Test Item Value Reference Range Interpretation Comments Hgb (test code = Hgb) 15.4 14.0-18.0 [facility] CenterXockojoDUGNZWLPKB9618-45-48 15:55:00 Test Item Value Reference Range Interpretation Comments Hct (test code = Hct) 45.7 42.0-54.0 [facility] HospitalFqvfyepWDFJYXTHPT4267-65-17 15:55:00 Test Item Value Reference Range Interpretation Comments Lamotrigine Lvl (test code = 3.8 2.0-20.0 Lamotrigine Lvl) [facility]2016-10-12 15:55:00 Test Item Value Reference Range Interpretation Comments eGFR (test code = eGFR) 101 [facility]2016-10-12 15:55:00 Test Item Value Reference Range Interpretation Comments BUN (test code = BUN) 17 7-22 [facility]2016-10-12 15:55:00 Test Item Value Reference Range Interpretation Comments Creatinine Lvl (test code = Creatinine 0.76 0.50-1.40 Lvl) [facility]2016-10-12 15:55:00 Test Item Value Reference Range Interpretation Comments Sodium Lvl (test code = Sodium Lvl) 141 135-145 [facility]2016-10-12 15:55:00 Test Item Value Reference Range Interpretation Comments Potassium Lvl (test code = Potassium 3.5 3.5-5.1 Lvl) [facility]2016-10-12 15:55:00 Test Item Value Reference Range Interpretation Comments Chloride Lvl (test code = Chloride Lvl) 104 95-109 [facility]2016-10-12 15:55:00 Test Item Value Reference Range Interpretation Comments CO2 (test code = CO2) 28 24-32 [facility]2016-04-29 08:35:00 Test Item Value Reference Range Interpretation Comments Total Protein (test code = Total 6.7 6.4-8.4 Protein) [facility]2016-04-29 08:35:00 Test Item Value Reference Range Interpretation Comments Albumin Lvl (test code = Albumin Lvl) 3.6 3.5-5.0 [facility]2016-04-29 08:35:00 Test Item Value Reference Range Interpretation Comments ALT (test code = ALT) 27 See_Comment [Auto mated message] The system which ge nerated this result transmit chiquita reference range : <=65. The reference range was not used to interpr et this result as juana l/abnormal. [facility]2016-04-29 08:35:00 Test Item Value Reference Range Interpretation Comments AST (test code = AST) 17 See_Comment [Auto mated message] The system which ge nerated this result transmit chiquita reference range : <=37. The reference range was not used to interpr et this result as juana l/abnormal. [facility]2016-04-29 08:35:00 Test Item Value Reference Range Interpretation Comments Bili Total (test code = Bili Total) 0.6 0.2-1.3 [facility]2016-04-29 08:35:00 Test Item Value Reference Range Interpretation Comments Alk Phos (test code = Alk Phos) 39 39-136 [facility]2016-04-29 08:35:00 Test Item Value Reference Range Interpretation Comments eGFR (test code = eGFR) 103 [facility]2016-04-29 08:35:00 Test Item Value Reference Range Interpretation Comments Creatinine Lvl (test code = Creatinine 0.74 0.50-1.40 Lvl) [facility]2016-04-29 08:35:00 Test Item Value Reference Range Interpretation Comments CO2 (test code = CO2) 23 24-32 [facility]2016-04-29 08:35:00 Test Item Value Reference Range Interpretation Comments Calcium Lvl (test code = Calcium Lvl) 8.5 8.5-10.5 [facility]2016-04-29 08:35:00 Test Item Value Reference Range Interpretation Comments Chloride Lvl (test code = Chloride Lvl) 107 95-109 [facility]2016-04-29 08:35:00 Test Item Value Reference Range Interpretation Comments Sodium Lvl (test code = Sodium Lvl) 142 135-145 [facility]2016-04-29 08:35:00 Test Item Value Reference Range Interpretation Comments Potassium Lvl (test code = Potassium 3.8 3.5-5.1 Lvl) [facility]2016-04-29 08:35:00 Test Item Value Reference Range Interpretation Comments Glucose Lvl (test code = Glucose Lvl) 105 70-99 [facility]2016-04-29 08:35:00 Test Item Value Reference Range Interpretation Comments BUN (test code = BUN) 13 7-22 [facility]CHE[facility] [id number] 08:35:00 Test Item Value Reference Range Interpretation Comments AGAP (test code = AGAP) 15.8 10.0-20.0 [facility]annCHEM [id number] 08:35:00 Test Item Value Reference Range Interpretation Comments B/C Ratio (test code = B/C Ratio) 18 6-25 [facility]CHE[facility] [id number] 08:35:00 Test Item Value Reference Range Interpretation Comments Globulin (test code = Globulin) 3.1 2.0-4.0 [facility]iscoannFORMERLY [facility] [id number] 08:35:00 Test Item Value Reference Range Interpretation Comments A/G Ratio (test code = A/G Ratio) 1.2 0.7-1.6 [facility]annFORMERLY [facility]OSPITALXCEFT0604-14-19 08:35:00 Test Item Value Reference Range Interpretation Comments Phosphorus (test code = Phosphorus) 2.8 2.5-4.5 [facility] FriscoannStandard Treasury [id number] 08:35:00 Test Item Value Reference Range Interpretation Comments Magnesium Lvl (test code = Magnesium 1.8 1.8-2.4 Lvl) [facility]DR[facility] [id number] 08:35:00 Test Item Value Reference Range Interpretation Comments U Opiate Scr (test Negative *NA*(09/29/15 code = U Opiate Scr) 3:35 AM) [facility]annDR[facility] [id number] 08:35:00 Test Item Value Reference Range Interpretation Comments U Cannab Scr (test Negative *NA*(09/29/15 code = U Cannab Scr) 3:35 AM) [facility]annDR[facility] [id number] 08:35:00 Test Item Value Reference Range Interpretation Comments U Benzodia Scr (test Negative *NA*(09/29/15 code = U Benzodia Scr) 3:35 AM) [facility]annDR[facility] [id number] 08:35:00 Test Item Value Reference Range Interpretation Comments U Cocaine Scr (test Negative *NA*(09/29/15 code = U Cocaine Scr) 3:35 AM) [facility]annDR[facility] [id number] 08:35:00 Test Item Value Reference Range Interpretation Comments U Propoxyph Scr (test Negative *NA*(09/29/15 code = U Propoxyph Scr) 3:35 AM) [facility]DR[facility] [id number] 08:35:00 Test Item Value Reference Range Interpretation Comments U Phencyc Scr (test Negative *NA*(09/29/15 code = U Phencyc Scr) 3:35 AM) [facility] [id number] 08:35:00 Test Item Value Reference Range Interpretation Comments U Methadone Scr (test Negative *NA*(09/29/15 code = U Methadone Scr) 3:35 AM) [facility]DR[facility] [id number] 08:35:00 Test Item Value Reference Range Interpretation Comments U Rossi Scr (test code Negative *NA*(09/29/15 = U Rossi Scr) 3:35 AM) [facility]DR[facility] [id number] 08:35:00 Test Item Value Reference Range Interpretation Comments U Amph Scr (test code Negative *NA*(09/29/15 = U Amph Scr) 3:35 AM) [facility]DR[facility] [id number] 08:35:00 Test Item Value Reference Range Interpretation Comments UDS Note (test code = See Note *NA*(09/29/15 UDS Note) 3:35 AM) [facility] HospitalCdgoeajJDYTVJXHVP5488-61-77 08:35:00 Test Item Value Reference Range Interpretation Comments Hgb (test code = Hgb) 14.2 14.0-18.0 [facility] CenterGkppmihAOPTAZIPAY2843-06-50 08:35:00 Test Item Value Reference Range Interpretation Comments WBC (test code = WBC) 6.3 3.7-10.4 [facility] HospitalCombrndDJFDKVZNSQ6138-96-23 08:35:00 Test Item Value Reference Range Interpretation Comments RBC (test code = RBC) 4.77 4.70-6.10 [facility] HospitalFsqnxghNGZUZFFMGU2737-94-87 08:35:00 Test Item Value Reference Range Interpretation Comments Hct (test code = Hct) 40.8 42.0-54.0 [facility] HospitalTblorfqBMQZSNEQMR1747-12-86 08:35:00 Test Item Value Reference Range Interpretation Comments RDW (test code = RDW) 13.3 11.5-14.5 [facility]EamrgqrUDNMCJITHL7400-74-61 08:35:00 Test Item Value Reference Range Interpretation Comments MCHC (test code = MCHC) 34.7 32.0-36.0 [facility] CenterDbtkaasVSRFWRABBT1282-32-05 08:35:00 Test Item Value Reference Range Interpretation Comments MCV (test code = MCV) 85.5 80.0-94.0 [facility] CenterWvwyiglECBIVYTNMO6715-66-06 08:35:00 Test Item Value Reference Range Interpretation Comments MCH (test code = MCH) 29.7 pg 27.0-31.0 [facility] CenterWdekkfyKUZWBWOEJP7727-45-48 08:35:00 Test Item Value Reference Range Interpretation Comments Platelet (test code = Platelet) 170 133-450 [facility] CenterHcuzgwcNQXCCNKAFG4764-78-34 08:35:00 Test Item Value Reference Range Interpretation Comments MPV (test code = MPV) 9.6 7.4-10.4 [facility] CenterXbavagdCSYKUCFEBU8271-05-96 08:35:00 Test Item Value Reference Range Interpretation Comments Segs-Bands # (test code = Segs-Bands #) 4.0 1.5-8.1 [facility] CenterQufdplxHVPBQGENJL5797-01-10 08:35:00 Test Item Value Reference Range Interpretation Comments Lymphocytes # (test code = Lymphocytes 1.6 1.0-5.5 #) [facility] CenterKcuvccaITOHJCREGS2910-49-26 08:35:00 Test Item Value Reference Range Interpretation Comments Eosinophils (test code = 1.2 See_Comment [A utomated message] The Eosinophils) system which ge nerated this result tra nsmitted reference range : <=4.0. The reference r cheko was not used to int erpret this result as normal/abnormal . [facility] CenterDixpztjKBWSRRISQO3497-72-22 08:35:00 Test Item Value Reference Range Interpretation Comments Basophils (test code = 0.7 See_Comment [Aut omated message] The Basophils) system which ge nerated this result tra nsmitted reference range : <=1.0. The reference r cheko was not used to int erpret this result as normal/abnormal . [facility] CenterPoycvhyVKNRVGBMXC1561-26-01 08:35:00 Test Item Value Reference Range Interpretation Comments Lymphocytes (test code = Lymphocytes) 24.9 20.0-40.0 [facility] CenterOmzgtoyMEGQBHEPHX7458-25-24 08:35:00 Test Item Value Reference Range Interpretation Comments Monocytes (test code = Monocytes) 9.8 2.0-12.0 [facility] SaultMunazobNNKGBIGRKC0185-84-23 08:35:00 Test Item Value Reference Range Interpretation Comments Segs (test code = Segs) 63.4 45.0-75.0 [facility] Cent[id number] 08:35:00 Test Item Value Reference Range Interpretation Comments Monocytes # (test code 0.6 See_Comment [Aut omated message] The = Monocytes #) system which generated this result tra nsmitted reference range : <=0.8. The reference r cheko was not used to int erpret this result as normal/abnormal . [facility] CenterFtbaxdgJWRIISTGIS0140-50-89 08:35:00 Test Item Value Reference Range Interpretation Comments Eosinophils # (test code 0.1 See_Comment [A utomated message] The = Eosinophils #) system whic h generated this result tra nsmitted reference range : <=0.5. The reference r cheko was not used to int erpret this result as normal/abnormal . [facility] HospitalMhtrogqQXBLOHVPJQ5597-90-07 08:35:00 Test Item Value Reference Range Interpretation Comments Phenytoin Free (test code = Phenytoin 1.47 1.00-2.00 Free) [facility] AND [id number] 08:35:00 Test Item Value Reference Range Interpretation Comments UA Sq Epi (test code = UA Sq Epi) None Seen [facility] AND [id number] 08:35:00 Test Item Value Reference Range Interpretation Comments UA Urobilinogen (test code = UA <=1.0 mg/dL 0.1-1.0 Urobilinogen) [facility] AND [id number] 08:35:00 Test Item Value Reference Range Interpretation Comments UA Color (test code = Yellow *NA*(09/29/15 UA Color) 3:35 AM) [facility] AND [id number] 08:35:00 Test Item Value Reference Range Interpretation Comments UA WBC (test code = no gt See_Comment [Automa chiquita message] The UA WBC) system which ge nerated this result transmit chiquita reference range : <=5. The reference range was not used to interpr et this result as juana l/abnormal. [facility] AND [id number] 08:35:00 Test Item Value Reference Range Interpretation Comments UA Mucus (test code = UA Mucus) Few /LPF [facility] AND [id number] 08:35:00 Test Item Value Reference Range Interpretation Comments UA Ketones (test code = UA Negative mg/dL Ketones) [facility] AND [id number] 08:35:00 Test Item Value Reference Range Interpretation Comments UA Spec Grav (test code = UA Spec Grav) 1.010 [facility] AND [id number] 08:35:00 Test Item Value Reference Range Interpretation Comments UA pH (test code = UA pH) 6.0 5.0-8.0 [facility] AND [id number] 08:35:00 Test Item Value Reference Range Interpretation Comments UA Protein (test code = UA Negative mg/dL Protein) [facility] AND [id number] 08:35:00 Test Item Value Reference Range Interpretation Comments UA Glucose (test code = UA Negative mg/dL Glucose) [facility] AND [id number] 08:35:00 Test Item Value Reference Range Interpretation Comments UA Turbidity (test code = Clear (09/29/15 3:35 UA Turbidity) AM) [facility] AND [id number] 08:35:00 Test Item Value Reference Range Interpretation Comments UA Blood (test code = Negative (09/29/15 3:35 UA Blood) AM) [facility] AND [id number] 08:35:00 Test Item Value Reference Range Interpretation Comments UA Nitrite (test code Negative (09/29/15 3:35 = UA Nitrite) AM) [facility] AND [id number] 08:35:00 Test Item Value Reference Range Interpretation Comments UA Bili (test code = Negative *NA*(09/29/15 UA Bili) 3:35 AM) [facility] AND [id number] 08:35:00 Test Item Value Reference Range Interpretation Comments UA Leuk Est (test Negative (09/29/15 3:35 code = UA Leuk Est) AM) [facility] [id number] 08:35:00 Test Item Value Reference Range Interpretation Comments Total Protein (test code = Total 6.7 6.4-8.4 Protein) [facility] [id number] 08:35:00 Test Item Value Reference Range Interpretation Comments Albumin Lvl (test code = Albumin Lvl) 3.6 3.5-5.0 [facility]2016-04-29 08:35:00 Test Item Value Reference Range Interpretation Comments ALT (test code = ALT) 27 See_Comment [Auto mated message] The system which ge nerated this result transmit chiquita reference range : <=65. The reference range was not used to interpr et this result as juana l/abnormal. [facility]2016-04-29 08:35:00 Test Item Value Reference Range Interpretation Comments AST (test code = AST) 17 See_Comment [Auto mated message] The system which ge nerated this result transmit chiquita reference range : <=37. The reference range was not used to interpr et this result as juana l/abnormal. [facility]2016-04-29 08:35:00 Test Item Value Reference Range Interpretation Comments Bili Total (test code = Bili Total) 0.6 0.2-1.3 [place] [id number] 08:35:00 Test Item Value Reference Range Interpretation Comments Alk Phos (test code = Alk Phos) 39 39-136 [facility]2016-04-29 08:35:00 Test Item Value Reference Range Interpretation Comments eGFR (test code = eGFR) 103 [facility]2016-04-29 08:35:00 Test Item Value Reference Range Interpretation Comments Creatinine Lvl (test code = Creatinine 0.74 0.50-1.40 Lvl) [facility]2016-04-29 08:35:00 Test Item Value Reference Range Interpretation Comments CO2 (test code = CO2) 23 24-32 [place] [id number] 08:35:00 Test Item Value Reference Range Interpretation Comments Calcium Lvl (test code = Calcium Lvl) 8.5 8.5-10.5 [facility]2016-04-29 08:35:00 Test Item Value Reference Range Interpretation Comments Chloride Lvl (test code = Chloride Lvl) 107 95-109 [facility]2016-04-29 08:35:00 Test Item Value Reference Range Interpretation Comments Sodium Lvl (test code = Sodium Lvl) 142 135-145 [place] [id number] 08:35:00 Test Item Value Reference Range Interpretation Comments Potassium Lvl (test code = Potassium 3.8 3.5-5.1 Lvl) [facility]2016-04-29 08:35:00 Test Item Value Reference Range Interpretation Comments Glucose Lvl (test code = Glucose Lvl) 105 70-99 [facility]2016-04-29 08:35:00 Test Item Value Reference Range Interpretation Comments BUN (test code = BUN) 13 7-22 [facility]2016-04-29 08:35:00 Test Item Value Reference Range Interpretation Comments AGAP (test code = AGAP) 15.8 10.0-20.0 [facility] FriscoBillawayFORMERLY [facility] [id number] 08:35:00 Test Item Value Reference Range Interpretation Comments B/C Ratio (test code = B/C Ratio) 18 6-25 [facility]2016-04-29 08:35:00 Test Item Value Reference Range Interpretation Comments Globulin (test code = Globulin) 3.1 2.0-4.0 [facility]2016-04-29 08:35:00 Test Item Value Reference Range Interpretation Comments A/G Ratio (test code = A/G Ratio) 1.2 0.7-1.6 [facility]2016-04-29 08:35:00 Test Item Value Reference Range Interpretation Comments Phosphorus (test code = Phosphorus) 2.8 2.5-4.5 [facility]2016-04-29 08:35:00 Test Item Value Reference Range Interpretation Comments Magnesium Lvl (test code = Magnesium 1.8 1.8-2.4 Lvl) [facility] [id number] 08:35:00 Test Item Value Reference Range Interpretation Comments U Opiate Scr (test Negative *NA*(09/29/15 code = U Opiate Scr) 3:35 AM) [facility] [id number] 08:35:00 Test Item Value Reference Range Interpretation Comments U Cannab Scr (test Negative *NA*(09/29/15 code = U Cannab Scr) 3:35 AM) [facility] [id number] 08:35:00 Test Item Value Reference Range Interpretation Comments U Benzodia Scr (test Negative *NA*(09/29/15 code = U Benzodia Scr) 3:35 AM) [facility] [id number] 08:35:00 Test Item Value Reference Range Interpretation Comments U Cocaine Scr (test Negative *NA*(09/29/15 code = U Cocaine Scr) 3:35 AM) [facility] [id number] 08:35:00 Test Item Value Reference Range Interpretation Comments U Propoxyph Scr (test Negative *NA*(09/29/15 code = U Propoxyph Scr) 3:35 AM) [facility] [id number] 08:35:00 Test Item Value Reference Range Interpretation Comments U Phencyc Scr (test Negative *NA*(09/29/15 code = U Phencyc Scr) 3:35 AM) [facility] [id number] 08:35:00 Test Item Value Reference Range Interpretation Comments U Methadone Scr (test Negative *NA*(09/29/15 code = U Methadone Scr) 3:35 AM) [facility] [id number] 08:35:00 Test Item Value Reference Range Interpretation Comments U Rossi Scr (test code Negative *NA*(09/29/15 = U Rossi Scr) 3:35 AM) [facility] [id number] 08:35:00 Test Item Value Reference Range Interpretation Comments U Amph Scr (test code Negative *NA*(09/29/15 = U Amph Scr) 3:35 AM) [facility] [id number] 08:35:00 Test Item Value Reference Range Interpretation Comments UDS Note (test code = See Note *NA*(09/29/15 UDS Note) 3:35 AM) [facility] Ho[id number] 08:35:00 Test Item Value Reference Range Interpretation Comments Hgb (test code = Hgb) 14.2 14.0-18.0 [facility]iscoFoyoiqjIFIDHENGUD4306-58-00 08:35:00 Test Item Value Reference Range Interpretation Comments WBC (test code = WBC) 6.3 3.7-10.4 [facility] GvxbxidMCXHGMEBIK6941-69-85 08:35:00 Test Item Value Reference Range Interpretation Comments RBC (test code = RBC) 4.77 4.70-6.10 [facility] HospitalLhnjpznFLKMXFSLVX4208-04-37 08:35:00 Test Item Value Reference Range Interpretation Comments Hct (test code = Hct) 40.8 42.0-54.0 [facility] CenterSrnhpxmLQCYSIMBVC7391-51-98 08:35:00 Test Item Value Reference Range Interpretation Comments RDW (test code = RDW) 13.3 11.5-14.5 [facility] CenterAvqkywxUVMIFVLWQM7933-04-13 08:35:00 Test Item Value Reference Range Interpretation Comments MCHC (test code = MCHC) 34.7 32.0-36.0 [facility] CenterMmkhxsjRRWQIKQDSM1553-10-64 08:35:00 Test Item Value Reference Range Interpretation Comments MCV (test code = MCV) 85.5 80.0-94.0 [facility] CenterFdgtmxfXTWNSUQTGL1650-91-01 08:35:00 Test Item Value Reference Range Interpretation Comments MCH (test code = MCH) 29.7 pg 27.0-31.0 [facility] CenterGqoavfjHZBMMVJKMJ6551-13-31 08:35:00 Test Item Value Reference Range Interpretation Comments Platelet (test code = Platelet) 170 133-450 [facility] C[id number] 08:35:00 Test Item Value Reference Range Interpretation Comments MPV (test code = MPV) 9.6 7.4-10.4 [facility] CenterRhqbxtiPPNPWAHIPK2424-29-53 08:35:00 Test Item Value Reference Range Interpretation Comments Segs-Bands # (test code = Segs-Bands #) 4.0 1.5-8.1 [facility] CenterYnrdpjeQPWZLCWDKV0236-10-80 08:35:00 Test Item Value Reference Range Interpretation Comments Lymphocytes # (test code = Lymphocytes 1.6 1.0-5.5 #) [facility] CenterLfkjqxzFNNPMLCFMS8700-84-41 08:35:00 Test Item Value Reference Range Interpretation Comments Eosinophils (test code = 1.2 See_Comment [A utomated message] The Eosinophils) system which ge nerated this result tra nsmitted reference range : <=4.0. The reference r cheko was not used to int erpret this result as normal/abnormal . [facility] CenterYoydvofKNTDKVXYUF7643-79-49 08:35:00 Test Item Value Reference Range Interpretation Comments Basophils (test code = 0.7 See_Comment [Aut omated message] The Basophils) system which ge nerated this result tra nsmitted reference range : <=1.0. The reference r cheko was not used to int erpret this result as normal/abnormal . [facility]NuqhnunTLONZVVQUY7111-54-68 08:35:00 Test Item Value Reference Range Interpretation Comments Lymphocytes (test code = Lymphocytes) 24.9 20.0-40.0 [facility] CenterJjeiaofEXTPLZMYEQ7393-66-34 08:35:00 Test Item Value Reference Range Interpretation Comments Monocytes (test code = Monocytes) 9.8 2.0-12.0 [facility] Cent[id number] 08:35:00 Test Item Value Reference Range Interpretation Comments Segs (test code = Segs) 63.4 45.0-75.0 [facility] CenterVnojhedFXGXMAVFMQ0652-81-78 08:35:00 Test Item Value Reference Range Interpretation Comments Monocytes # (test code 0.6 See_Comment [Aut omated message] The = Monocytes #) system which generated this result tra nsmitted reference range : <=0.8. The reference r cheko was not used to int erpret this result as normal/abnormal . [facility] CenterQctepscRWPJSADJDK0533-71-16 08:35:00 Test Item Value Reference Range Interpretation Comments Eosinophils # (test code 0.1 See_Comment [A utomated message] The = Eosinophils #) system whic h generated this result tra nsmitted reference range : <=0.5. The reference r cheko was not used to int erpret this result as normal/abnormal . [facility] H[id number] 08:35:00 Test Item Value Reference Range Interpretation Comments Phenytoin Free (test code = Phenytoin 1.47 1.00-2.00 Free) [facility] AND [id number] 08:35:00 Test Item Value Reference Range Interpretation Comments UA Sq Epi (test code = UA Sq Epi) None Seen [facility] AND [id number] 08:35:00 Test Item Value Reference Range Interpretation Comments UA Urobilinogen (test code = UA <=1.0 mg/dL 0.1-1.0 Urobilinogen) [facility] AND [id number] 08:35:00 Test Item Value Reference Range Interpretation Comments UA Color (test code = Yellow *NA*(09/29/15 UA Color) 3:35 AM) [facility] AND [id number] 08:35:00 Test Item Value Reference Range Interpretation Comments UA WBC (test code = no gt See_Comment [Automa chiquita message] The UA WBC) system which ge nerated this result transmit chiquita reference range : <=5. The reference range was not used to interpr et this result as juana l/abnormal. [facility] AND [id number] 08:35:00 Test Item Value Reference Range Interpretation Comments UA Mucus (test code = UA Mucus) Few /LPF [facility] AND [id number] 08:35:00 Test Item Value Reference Range Interpretation Comments UA Ketones (test code = UA Negative mg/dL Ketones) [facility] AND [id number] 08:35:00 Test Item Value Reference Range Interpretation Comments UA Spec Grav (test code = UA Spec Grav) 1.010 [facility] AND [id number] 08:35:00 Test Item Value Reference Range Interpretation Comments UA pH (test code = UA pH) 6.0 5.0-8.0 [facility] AND [id number] 08:35:00 Test Item Value Reference Range Interpretation Comments UA Protein (test code = UA Negative mg/dL Protein) [facility] AND [id number] 08:35:00 Test Item Value Reference Range Interpretation Comments UA Glucose (test code = UA Negative mg/dL Glucose) [facility] AND [id number] 08:35:00 Test Item Value Reference Range Interpretation Comments UA Turbidity (test code = Clear (09/29/15 3:35 UA Turbidity) AM) [facility] AND [id number] 08:35:00 Test Item Value Reference Range Interpretation Comments UA Blood (test code = Negative (09/29/15 3:35 UA Blood) AM) [facility] AND [id number] 08:35:00 Test Item Value Reference Range Interpretation Comments UA Nitrite (test code Negative (09/29/15 3:35 = UA Nitrite) AM) [facility] AND [id number] 08:35:00 Test Item Value Reference Range Interpretation Comments UA Bili (test code = Negative *NA*(09/29/15 UA Bili) 3:35 AM) [facility] AND [id number] 08:35:00 Test Item Value Reference Range Interpretation Comments UA Leuk Est (test Negative (09/29/15 3:35 code = UA Leuk Est) AM) [facility]2016-04-29 08:35:00 Test Item Value Reference Range Interpretation Comments Total Protein (test code = Total 6.7 6.4-8.4 Protein) [facility]2016-04-29 08:35:00 Test Item Value Reference Range Interpretation Comments Albumin Lvl (test code = Albumin Lvl) 3.6 3.5-5.0 [facility]2016-04-29 08:35:00 Test Item Value Reference Range Interpretation Comments ALT (test code = ALT) 27 See_Comment [Auto mated message] The system which ge nerated this result transmit chiquita reference range : <=65. The reference range was not used to interpr et this result as juana l/abnormal. [facility]2016-04-29 08:35:00 Test Item Value Reference Range Interpretation Comments AST (test code = AST) 17 See_Comment [Auto mated message] The system which ge nerated this result transmit chiquita reference range : <=37. The reference range was not used to interpr et this result as juana l/abnormal. [facility]2016-04-29 08:35:00 Test Item Value Reference Range Interpretation Comments Bili Total (test code = Bili Total) 0.6 0.2-1.3 [facility]2016-04-29 08:35:00 Test Item Value Reference Range Interpretation Comments Alk Phos (test code = Alk Phos) 39 39-136 [facility]2016-04-29 08:35:00 Test Item Value Reference Range Interpretation Comments eGFR (test code = eGFR) 103 [facility]2016-04-29 08:35:00 Test Item Value Reference Range Interpretation Comments Creatinine Lvl (test code = Creatinine 0.74 0.50-1.40 Lvl) [facility]2016-04-29 08:35:00 Test Item Value Reference Range Interpretation Comments CO2 (test code = CO2) 23 24-32 [place] [id number] 08:35:00 Test Item Value Reference Range Interpretation Comments Calcium Lvl (test code = Calcium Lvl) 8.5 8.5-10.5 [facility]iscoBillawayFORMERLY MCD[facility]LL [id number] 08:35:00 Test Item Value Reference Range Interpretation Comments Chloride Lvl (test code = Chloride Lvl) 107 95-109 [facility]2016-04-29 08:35:00 Test Item Value Reference Range Interpretation Comments Sodium Lvl (test code = Sodium Lvl) 142 135-145 [facility]2016-04-29 08:35:00 Test Item Value Reference Range Interpretation Comments Potassium Lvl (test code = Potassium 3.8 3.5-5.1 Lvl) [facility] [id number] 08:35:00 Test Item Value Reference Range Interpretation Comments Glucose Lvl (test code = Glucose Lvl) 105 70-99 [facility] [id number] 08:35:00 Test Item Value Reference Range Interpretation Comments BUN (test code = BUN) 13 7-22 [facility]2016-04-29 08:35:00 Test Item Value Reference Range Interpretation Comments AGAP (test code = AGAP) 15.8 10.0-20.0 [facility] [id number] 08:35:00 Test Item Value Reference Range Interpretation Comments B/C Ratio (test code = B/C Ratio) 18 6-25 [facility] [id number] 08:35:00 Test Item Value Reference Range Interpretation Comments Globulin (test code = Globulin) 3.1 2.0-4.0 [facility] [id number] 08:35:00 Test Item Value Reference Range Interpretation Comments A/G Ratio (test code = A/G Ratio) 1.2 0.7-1.6 [facility] [id number] 08:35:00 Test Item Value Reference Range Interpretation Comments Phosphorus (test code = Phosphorus) 2.8 2.5-4.5 [facility] [id number] 08:35:00 Test Item Value Reference Range Interpretation Comments Magnesium Lvl (test code = Magnesium 1.8 1.8-2.4 Lvl) [facility]iscoBestofmedia [facility] [id number] 08:35:00 Test Item Value Reference Range Interpretation Comments U Opiate Scr (test Negative *NA*(09/29/15 code = U Opiate Scr) 3:35 AM) [facility] [id number] 08:35:00 Test Item Value Reference Range Interpretation Comments U Cannab Scr (test Negative *NA*(09/29/15 code = U Cannab Scr) 3:35 AM) [facility] [id number] 08:35:00 Test Item Value Reference Range Interpretation Comments U Benzodia Scr (test Negative *NA*(09/29/15 code = U Benzodia Scr) 3:35 AM) [facility] [id number] 08:35:00 Test Item Value Reference Range Interpretation Comments U Cocaine Scr (test Negative *NA*(09/29/15 code = U Cocaine Scr) 3:35 AM) [facility] [id number] 08:35:00 Test Item Value Reference Range Interpretation Comments U Propoxyph Scr (test Negative *NA*(09/29/15 code = U Propoxyph Scr) 3:35 AM) [facility] [id number] 08:35:00 Test Item Value Reference Range Interpretation Comments U Phencyc Scr (test Negative *NA*(09/29/15 code = U Phencyc Scr) 3:35 AM) [facility] [id number] 08:35:00 Test Item Value Reference Range Interpretation Comments U Methadone Scr (test Negative *NA*(09/29/15 code = U Methadone Scr) 3:35 AM) [facility] [id number] 08:35:00 Test Item Value Reference Range Interpretation Comments U Rossi Scr (test code Negative *NA*(09/29/15 = U Rossi Scr) 3:35 AM) [facility] [id number] 08:35:00 Test Item Value Reference Range Interpretation Comments U Amph Scr (test code Negative *NA*(09/29/15 = U Amph Scr) 3:35 AM) [facility] [id number] 08:35:00 Test Item Value Reference Range Interpretation Comments UDS Note (test code = See Note *NA*(09/29/15 UDS Note) 3:35 AM) [facility] [id number] 08:35:00 Test Item Value Reference Range Interpretation Comments Hgb (test code = Hgb) 14.2 14.0-18.0 [facility] RbvhgecEFZUXKQCDJ7415-52-94 08:35:00 Test Item Value Reference Range Interpretation Comments WBC (test code = WBC) 6.3 3.7-10.4 [facility] [id number] 08:35:00 Test Item Value Reference Range Interpretation Comments RBC (test code = RBC) 4.77 4.70-6.10 [facility] C[id number] 08:35:00 Test Item Value Reference Range Interpretation Comments Hct (test code = Hct) 40.8 42.0-54.0 [facility] C[id number] 08:35:00 Test Item Value Reference Range Interpretation Comments RDW (test code = RDW) 13.3 11.5-14.5 [facility] [id number] 08:35:00 Test Item Value Reference Range Interpretation Comments MCHC (test code = MCHC) 34.7 32.0-36.0 [facility] CenterKyhiprcCVDBRNIAAX2433-37-42 08:35:00 Test Item Value Reference Range Interpretation Comments MCV (test code = MCV) 85.5 80.0-94.0 [facility] [id number] 08:35:00 Test Item Value Reference Range Interpretation Comments MCH (test code = MCH) 29.7 pg 27.0-31.0 [facility] CenterTxvmbfhTXBBZIJGBT5013-52-54 08:35:00 Test Item Value Reference Range Interpretation Comments Platelet (test code = Platelet) 170 133-450 [facility] [id number] 08:35:00 Test Item Value Reference Range Interpretation Comments MPV (test code = MPV) 9.6 7.4-10.4 [facility] CenterSqxpamkUBEDYQQBZL6068-98-17 08:35:00 Test Item Value Reference Range Interpretation Comments Segs-Bands # (test code = Segs-Bands #) 4.0 1.5-8.1 [facility] CenterUeyzmnwQELSLZKHBE2993-56-82 08:35:00 Test Item Value Reference Range Interpretation Comments Lymphocytes # (test code = Lymphocytes 1.6 1.0-5.5 #) [facility] C[id number] 08:35:00 Test Item Value Reference Range Interpretation Comments Eosinophils (test code = 1.2 See_Comment [A utomated message] The Eosinophils) system which ge nerated this result tra nsmitted reference range : <=4.0. The reference r cheko was not used to int erpret this result as normal/abnormal . [facility] [id number] 08:35:00 Test Item Value Reference Range Interpretation Comments Basophils (test code = 0.7 See_Comment [Aut omated message] The Basophils) system which ge nerated this result tra nsmitted reference range : <=1.0. The reference r cheko was not used to int erpret this result as normal/abnormal . [facility] CenterZndbhtcDWUOSTJJVU0358-08-23 08:35:00 Test Item Value Reference Range Interpretation Comments Lymphocytes (test code = Lymphocytes) 24.9 20.0-40.0 [facility] C[id number] 08:35:00 Test Item Value Reference Range Interpretation Comments Monocytes (test code = Monocytes) 9.8 2.0-12.0 [facility] [id number] 08:35:00 Test Item Value Reference Range Interpretation Comments Segs (test code = Segs) 63.4 45.0-75.0 [facility] C[id number] 08:35:00 Test Item Value Reference Range Interpretation Comments Monocytes # (test code 0.6 See_Comment [Aut omated message] The = Monocytes #) system which generated this result tra nsmitted reference range : <=0.8. The reference r cheko was not used to int erpret this result as normal/abnormal . [facility] [id number] 08:35:00 Test Item Value Reference Range Interpretation Comments Eosinophils # (test code 0.1 See_Comment [A utomated message] The = Eosinophils #) system whic h generated this result tra nsmitted reference range : <=0.5. The reference r cheko was not used to int erpret this result as normal/abnormal . [facility] Hos[id number] 08:35:00 Test Item Value Reference Range Interpretation Comments Phenytoin Free (test code = Phenytoin 1.47 1.00-2.00 Free) [facility] AND [id number] 08:35:00 Test Item Value Reference Range Interpretation Comments UA Sq Epi (test code = UA Sq Epi) None Seen [facility] AND [id number] 08:35:00 Test Item Value Reference Range Interpretation Comments UA Urobilinogen (test code = UA <=1.0 mg/dL 0.1-1.0 Urobilinogen) [facility] AND [id number] 08:35:00 Test Item Value Reference Range Interpretation Comments UA Color (test code = Yellow *NA*(09/29/15 UA Color) 3:35 AM) [facility] AND [id number] 08:35:00 Test Item Value Reference Range Interpretation Comments UA WBC (test code = no gt See_Comment [Automa chiquita message] The UA WBC) system which ge nerated this result transmit chiquita reference range : <=5. The reference range was not used to interpr et this result as juana l/abnormal. [facility] AND [id number] 08:35:00 Test Item Value Reference Range Interpretation Comments UA Mucus (test code = UA Mucus) Few /LPF [facility] AND [id number] 08:35:00 Test Item Value Reference Range Interpretation Comments UA Ketones (test code = UA Negative mg/dL Ketones) [facility] AND [id number] 08:35:00 Test Item Value Reference Range Interpretation Comments UA Spec Grav (test code = UA Spec Grav) 1.010 [facility] AND [id number] 08:35:00 Test Item Value Reference Range Interpretation Comments UA pH (test code = UA pH) 6.0 5.0-8.0 [facility] AND [id number] 08:35:00 Test Item Value Reference Range Interpretation Comments UA Protein (test code = UA Negative mg/dL Protein) [facility] AND [id number] 08:35:00 Test Item Value Reference Range Interpretation Comments UA Glucose (test code = UA Negative mg/dL Glucose) [facility] AND [id number] 08:35:00 Test Item Value Reference Range Interpretation Comments UA Turbidity (test code = Clear (09/29/15 3:35 UA Turbidity) AM) [facility] AND [id number] 08:35:00 Test Item Value Reference Range Interpretation Comments UA Blood (test code = Negative (09/29/15 3:35 UA Blood) AM) [facility] AND [id number] 08:35:00 Test Item Value Reference Range Interpretation Comments UA Nitrite (test code Negative (09/29/15 3:35 = UA Nitrite) AM) [facility] AND [id number] 08:35:00 Test Item Value Reference Range Interpretation Comments UA Bili (test code = Negative *NA*(09/29/15 UA Bili) 3:35 AM) [facility] AND [id number] 08:35:00 Test Item Value Reference Range Interpretation Comments UA Leuk Est (test Negative (09/29/15 3:35 code = UA Leuk Est) AM) [facility]
--- NOTE | 2022-08-13 13:59 | RAD REPORT ---
EXAM DESCRIPTION: CT - Stone Protocol - 08/13/2022 1:36 pm CLINICAL HISTORY: Abdominal pain. Left flank pain COMPARISON: 2020 TECHNIQUE: Computed axial tomography of the abdomen pelvis was obtained without oral or IV contrast. Lack of IV and oral contrast limits evaluation of solid organs, appendix, bowel, and vessels. Campbell l reformatted images were obtained and reviewed. All CT scans are performed using dose optimization technique as appropriate and may include automated exposure control or mA/KV adjustment according to patient size. FINDINGS: A renal calculus is not seen. An ureteral calculus is not noted. A bladder calculus is not present. No hydronephrosis. Calcifications within the liver without significant change Spleen, pancreas, adrenals grossly normal Postsurgical changes involve the colon. No evidence of diverticulitis. Normal appendix Several large ventral hernias containing nondilated bowel Spondylolysis L5 Cholelithiasis Left upper quadrant calcifications again noted IMPRESSION: Negative for a genitourinary calculus
[2022-08-13 14:06] LABS: Absolute Lymphocytes (CBC) 0.9 K/uL (0.7-4.9); Hematocrit 44.3 % (39.6-49.0); Lymphocytes % 15.7 % (15.3-44.8); MCV 85.8 fL (80-100); RBC Red Blood Cell Count 5.16 M/uL (4.33-5.43)
[2022-08-13 14:42] LABS: Albumin 3.7 g/dL (3.4-5.0); Bilirubin Total 0.7 mg/dL (0.2-1.0); Potassium 3.5 mmol/L (3.5-5.1); Protein, Total 6.9 g/dL (6.4-8.2)
[2022-08-13 15:57] LABS: Urine Blood Negative (Negative); Urine Glucose Negative (Negative); Urine Protein Negative (Negative)
--- NOTE | 2022-08-13 16:06 | ER ---
Nurse's Notes [facility] Name: Javier Barragan Age: 62 yrs Sex: Male : 1960 Arrival Date: 08/13/2022 Time: 13:02 Bed 13 Private MD: Diagnosis: Low back pain Presentation: 08/13 13:02 Chief complaint: EMS states: toned out for bilateral flank pain that started about a eh3 week ago, pt states it feels like kidney pain. EMS reports BGL of 129. Coronavirus screen: Vaccine status: Patient reports receiving the 2nd dose of the covid vaccine. Ebola Screen: No symptoms or risks identified at this time. Initial Sepsis Screen: Does the patient meet any 2 criteria? No. Patient's initial sepsis screen is negative. Does the patient have a suspected source of infection? No. Patient's initial sepsis screen is negative. Risk Assessment: Do you want to hurt yourself or someone else? Patient reports no desire to harm self or others. Onset of symptoms was August 06, 2022. 13:02 Method Of Arrival: EMS: [place] [id number] 13:02 Acuity: RUI 3 eh3 Triage Assessment: 13:04 General: Appears in no apparent distress. uncomfortable, Behavior is calm, cooperative, eh3 appropriate for age. Pain: Complains of pain in left flank and right flank Pain does not radiate. Pain currently is 7 out of 10 on a pain scale. Quality of pain is described as aching, sharp, Is continuous, Alleviated by nothing. Aggravated by increased activity, repositioning, Noted to be resistant to movement. EENT: No signs and/or symptoms were reported regarding the EENT system. Neuro: Level of Consciousness is awake, alert, obeys commands, Oriented to person, place, time, situation. Cardiovascular: Capillary refill < 3 seconds Patient's skin is warm and dry. Edema is 2+ to left ankle, left foot, right ankle and right foot. Respiratory: Airway is patent Respiratory effort is even, unlabored, Respiratory pattern is regular, symmetrical. GI: No signs and/or symptoms were reported involving the gastrointestinal system. Abdomen is round non-distended. : No signs and/or symptoms were reported regarding the genitourinary system. Derm: No signs and/or symptoms reported regarding the dermatologic system. Skin is pink, warm \T\ dry. Musculoskeletal: No signs and/or symptoms reported regarding the musculoskeletal system. 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 - Social history:: Smoking status: Patient denies any tobacco usage or history of. Patient uses alcohol, occasionally. - Family history:: not pertinent. - Hospitalizations: : No recent hospitalization is reported. Screenin:07 [facility] ED Fall Risk Assessment (Adult) Score/Fall Risk Level 0 - 2 = Low Risk. Abuse eh3 screen: Denies threats or abuse. Denies injuries from another. Nutritional screening: No deficits noted. Tuberculosis screening: No symptoms or risk factors identified. Assessment: 13:07 Reassessment: No changes from previously documented assessment. See triage assessment. eh3 14:00 Reassessment: Patient appears in no apparent distress at this time. Patient and/or 3 family updated on plan of care and expected duration. Pain level reassessed. Patient is alert, oriented x 3, equal unlabored respirations, skin warm/dry/pink. Pt states he still cannot urine, requests more water to drink. 15:00 Reassessment: Patient appears in no apparent distress at this time. Patient and/or 3 family updated on plan of care and expected duration. Pain level reassessed. Patient is alert, oriented x 3, equal unlabored respirations, skin warm/dry/pink. Vital Signs: 13:02 BP 114 / 94; Pulse 80; Resp 18; Temp 98.6(O); Pulse Ox 96% on R/A; Weight 104.33 kg; eh3 Height 6 ft. 0 in. ; Pain 7/10; 14:00 BP 120 / 69; Pulse 67; Resp 20; Pulse Ox 99% on R/A; eh3 15:00 BP 125 / 98; Pulse 86; Resp 18; Pulse Ox 98% on R/A; eh3 13:02 Body Mass Index 31.19 (104.33 kg, 182.88 cm) eh3 13:02 Pain Scale: Adult [facility] ED Course: 13:02 Patient arrived in ED. eh3 13:02 Popeye Ibrahim MD is Attending Physician. rn 13:04 Triage completed. eh3 13:04 Arm band placed on. eh3 13:05 Diamond Steen, RN is Primary Nurse. nj1 13:07 Patient has correct armband on for positive identification. Bed in low position. Call 3 light in reach. Side rails up X2. Client placed on continuous cardiac and pulse oximetry monitoring. NIBP monitoring applied. Door closed. Noise minimized. Lights dimmed. 13:11 Airam Aparicio, RN is Primary Nurse. eh3 13:30 Assisted to bathroom. Pt states he cannot provide urine unless he can drink water. eh3 Provider notified. 13:37 CT Stone Protocol In Process Unspecified. EDMS 13:45 Diet: Patient given water. eh3 14:17 Lab(s) recollected, by me, sent to lab. tm3 14:45 Diet: Patient given water. eh3 15:30 Assisted to bathroom. eh3 Administered Medications: No medications were administered Outcome: 16:05 Discharge ordered by . rn Signatures: Dispatcher [employer] EDAK Rupesh Moreira 3 Popeye Ibrahim MD MD rn Hall, Erin, RN RN [facility] Diamond Steen RN RN nj1 Corrections: (The following items were deleted from the chart) 15:39 14:00 Reassessment: Patient appears in no apparent distress at this time. Patient eh3 and/or family updated on plan of care and expected duration. Pain level reassessed. Patient is alert, oriented x 3, equal unlabored respirations, skin warm/dry/pink. eh3 15:39 15:00 Reassessment: Patient appears in no apparent distress at this time. Patient eh3 and/or family updated on plan of care and expected duration. Pain level reassessed. Patient is alert, oriented x 3, equal unlabored respirations, skin warm/dry/pink. eh3
--- NOTE | 2022-08-13 16:07 | EDPHYS ---
Physician Documentation [facility] Name: Javier Barragan Age: 62 yrs Sex: Male : 1960 Arrival Date: 08/13/2022 Time: 13:02 Bed 13 Private MD: ED Physician Popeye Ibrahim HPI: 08/13 14:12 This 62 yrs old Male presents to ER via EMS with complaints of Flank Pain. rn 14:12 The patient complains of pain in the left low back and left mid back. The pain radiates rn to the left leg. 14:13 Onset: The symptoms/episode began/occurred 1 week(s) ago. Modifying factors: The rn symptoms are alleviated by nothing. the symptoms are aggravated by nothing. Associated signs and symptoms: Pertinent positives: pain radiating to left lower extremity, Pertinent negatives: fever, urinary frequency, hematuria. Severity of pain: At its worst the pain was moderate in the emergency department the pain is unchanged. The patient has not experienced similar symptoms in the past. The patient has not recently seen a physician. Pt reports flank pain, bilateral, shoots down left leg, present for last week. No fever. No trauma. No chest pain/sob/abd pain. . 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 - Social history:: Smoking status: Patient denies any tobacco usage or history of. Patient uses alcohol, occasionally. - Family history:: not pertinent. - Hospitalizations: : No recent hospitalization is reported. ROS: 14:13 Constitutional: Negative for fever, chills, and weight loss, Cardiovascular: Negative rn for chest pain, palpitations, and edema, Respiratory: Negative for shortness of breath, cough, wheezing, and pleuritic chest pain, Abdomen/GI: Negative for abdominal pain, nausea, vomiting, diarrhea, and constipation, Back: + back pain : Negative for injury, bleeding, discharge, and swelling, MS/Extremity: Negative for injury and deformity, Skin: Negative for injury, rash, and discoloration, Neuro: Negative for headache, weakness, numbness, tingling, and seizure. Exam: 14:13 Constitutional: This is a well developed, well nourished patient who is awake, alert, rn and in no acute distress. Head/Face: Normocephalic, atraumatic. Cardiovascular: Regular rate and rhythm. No pulse deficits. Respiratory: No increased work of breathing, no retractions or nasal flaring. Abdomen/GI: Soft, non-tender, + non-tender ventral hernias MS/ Extremity: Pulses equal, no cyanosis. + right sided weakness from previous stroke. Neuro: Awake and alert, GCS 15, residual right sided weakness. Vital Signs: 13:02 BP 114 / 94; Pulse 80; Resp 18; Temp 98.6(O); Pulse Ox 96% on R/A; Weight 104.33 kg; eh3 Height 6 ft. 0 in. ; Pain 7/10; 14:00 BP 120 / 69; Pulse 67; Resp 20; Pulse Ox 99% on R/A; eh3 15:00 BP 125 / 98; Pulse 86; Resp 18; Pulse Ox 98% on R/A; eh3 13:02 Body Mass Index 31.19 (104.33 kg, 182.88 cm) [facility] 13:02 Pain Scale: Adult eh3 MDM: 13:02 Patient medically screened. rn 16:03 Differential diagnosis: nephrolithiasis, pyelonephritis, UTI, diverticulitis, ruptured rn AAA, dissecting AAA, radiculopathy. Data reviewed: vital signs, nurses notes, lab test result(s), radiologic studies, CT scan, and as a result, I will discharge patient. Counseling: I had a detailed discussion with the patient and/or guardian regarding: the historical points, exam findings, and any diagnostic results supporting the discharge/admit diagnosis, lab results, radiology results, the need for outpatient follow up, to return to the emergency department if symptoms worsen or persist or if there are any questions or concerns that arise at home. Response to treatment: the patient's symptoms have markedly improved after treatment, and as a result, I will discharge patient. Special discussion: I discussed with the patient/guardian in detail that at this point there is no indication for admission to the hospital. It is understood, however, that if the symptoms persist or worsen the patient needs to return immediately for re-evaluation. ED course: NO acute findings on imaging or urine. Stable vitals. Patient states feeling better. Will dc home with pcp f/u and return precautions. . 08/13 13:11 Order name: CBC with Diff; Complete Time: 14:10 rn 08/13 13:11 Order name: Urine Microscopic Only rn 08/13 13:11 Order name: IV Saline Lock; Complete Time: 14:09 rn 08/13 13:11 Order name: Labs collected and sent; Complete Time: 14:09 rn 08/13 13:11 Order name: CT Stone Protocol; Complete Time: 14:10 rn 08/13 13:58 Order name: Labs - recollect needed: recollect green top; Complete Time: 14:13 bd 08/13 13:11 Order name: Urine Dipstick-Ancillary (obtain specimen); Complete Time: 15:59 rn 08/13 13:11 Order name: CMP; Complete Time: 16:00 rn 08/13 13:11 Order name: Lipase; Complete Time: 16:00 rn 08/13 15:57 Order name: Urine Dipstick-Ancillary; Complete Time: 16:00 EDMS Administered Medications: No medications were administered Disposition Summary: 08/13/22 16:05 Discharge Ordered Location: Home rn Problem: new rn Symptoms: have improved rn Condition: Stable rn Diagnosis - Low back pain rn Followup: rn - With: Private Physician - When: As needed - Reason: Recheck today's complaints, Re-evaluation by your physician Discharge Instructions: - Discharge Summary Sheet rn - Musculoskeletal Pain rn - Pain Without a Known Cause rn Forms: - Medication Reconciliation Form rn - Thank You Letter rn - Antibiotic t rail turner - Prescription Opioid Use rn Prescriptions: - Cyclobenzaprine 10 mg Oral Tablet - take 1 tablet by ORAL route every 8 hours As needed; 15 tablet; Refills: 0, rn Product Selection Permitted - Medrol (Miguelito) 4 mg Oral Tablets, Dose Pack - take 1 tablet by ORAL route as directed - follow package instructions; 1 rn packet; Refills: 0, Product Selection Permitted Signatures: Dispatcher [employer] EDKatie Faria Roman, MD MD rn Aparicio, KEL Alegria RN 3 Corrections: (The following items were deleted from the chart) 13:17 13:12 Abdomen Pelvis W [id number]+CT.RAD.BRZ ordered. EDMS EDMS
[2022-08-13 16:12] LABS: Urine Bacteria None Seen /HPF (<20); Urine RBC <5 /HPF (None Seen)
[2022-08-14 01:41] VITALS: TEMP 98.6
[2022-08-14 01:45] VITALS: BP 125/68; O2SAT 98
== END 2022-08-13 20:37 | disposition home or self-care (01) ==
LOC: ER 12:55
DX: M54.50 Low back pain, unspecified (principal); R10.9 Unspecified abdominal pain
CPT/HCPCS: 36415; 74176; 76377; 80053; 81003; 81015; 83690; 85025; 99284

== ENCOUNTER 2024-08-15 16:37 | Emergency (ER) | payer OTHER ==
[2024-08-15] MEDS ORDERED: DICYCLOMINE HCL 20 MG/2 ML AMP IM ONE (17:25)
[2024-08-15] MEDS ORDERED: METOCLOPRAMIDE 10 MG/2mL INJ ONE (17:25)
[2024-08-15] MEDS ORDERED: NA CHLORIDE 0.9% 500 ML ONE (17:25)
[2024-08-15] MEDS ORDERED: BISACODYL 10 MG RECTAL SUPP ONE (17:25)
[2024-08-15] MEDS ORDERED: LACTULOSE 20 GM/30 ML UCUP ONE (17:26)
[2024-08-15 18:10] LABS: Absolute Eosinophils 0.1 K/uL (0-0.5); Absolute Lymphocytes (CBC) 1.3 K/uL (0.7-4.9); Absolute Monocytes 0.5 K/uL (0.1-1.3); Absolute Neutrophil 3.6 K/uL (1.8-8.0); Basophils % 0.6 % (0-1.3); Hemoglobin 14.8 g/dL (13.6-17.9); Lymphocytes % 22.9 % (15.3-44.8); MCH 29.5 pg (27.0-35.0); MCHC 34.3 g/dL (32.0-36.0); MPV 9.1 fL (7.6-11.3); Monocytes % 8.5 % (3.3-12.3); Platelets 147 thou/uL (152-406); Red Cell Distribution Width 14.2 % (12.1-15.2)
[2024-08-15 18:27] LABS: Albumin 3.5 g/dL (3.4-5.0); Albumin/Globulin Ratio 1.1 (1.1-1.8); Anion Gap 8.2 mEq/L (5.0-15.0); Bilirubin Total 0.7 mg/dL (0.2-1.0); Globulin 3.3 g/dL (2.3-3.5); Potassium 4.2 mEq/L (3.5-5.1); Protein, Total 6.8 g/dL (6.4-8.2)
[2024-08-15 19:26] LABS: Specific Gravity 1.008 (1.005-1.030); Sqamous Epithelial None Seen /HPF (None Seen); Urine Bacteria None Seen /HPF (<20); Urine Bilirubin NEGATIVE (Negative); Urine Blood Negative (Negative); Urine Clarity Clear (Clear); Urine Color Colorless (Yellow); Urine Culture Reflex Order NOT NEEDED; Urine Glucose NEGATIVE (Negative); Urine Ketones NEGATIVE (Negative); Urine Microscopic Reflex YN ORDER UMIC; Urine Nitrite NEGATIVE (Negative); Urine Protein NEGATIVE (Negative); Urine RBC <5 /HPF (None Seen); Urine Urobilinogen Normal (Normal); Urine WBC <5 /HPF (<5); Urine pH 7.5 (5.0-7.0)
--- NOTE | 2024-08-15 19:37 | RAD REPORT ---
EXAMINATION: CT ABDOMEN AND PELVIS WITHOUT CONTRAST CLINICAL INDICATION: Abd pain;Constipation TECHNIQUE: CT abdomen and pelvis was performed, without IV contrast, as per department protocol. Axia l, sagittal and coronal reconstructions were obtained. One or more of the following dose reduction techniques were used: Automated exposure control, adjustment of the mA and kV according to the patien t size, and iterative reconstruction. Unless otherwise specified, incidental findings do not require dedicated imaging follow-up. COMPARISON: 08/13/2022 FINDINGS: The lack of intravenous contrast limits the sensitivity of this exam for evaluation of solid visceral organs, vascular structures, and retroperitoneum. LOWER CHEST: The visualized lung bases are clear. Small hiatal hernia. LIVER:Several calcifications are seen in the liver parenchyma. No worrisome liver mass or biliary dil atation. Cholecystectomy clips. SPLEEN: Normal size. No focal lesion. PANCREAS: No mass, ductal dilation, or jessica-pancreatic fluid. ADRENALS: Normal; no mass. KIDNEYS AND URETERS: Normal size and contour. No hydronephrosis. URINARY BLADDER: Normal contour. GASTROINTESTINAL TRACT: No evidence of bowel obstruction, significant free fluid, free air or abscess . Postsurgical changes about the sigmoid colon. APPENDIX: Normal appendix. LYMPH NODES: No lymphadenopathy. MUSCULOSKELETAL: Bilateral chronic spondylolysis at L5-S1. ADDITIONAL FINDINGS: There are 2 moderate to large sized ventral hernias are seen containing bowel wi thout obstruction. IMPRESSION: No acute or concerning abnormalities in the abdomen or pelvis, with evaluation limited by lack of IV contrast. Moderate to large ventral hernias as detailed. No evidence of incarceration.
--- NOTE | 2024-08-15 20:25 | ER ---
Nurse's Notes [facility] Name: Javier Barragan Age: 64 yrs Sex: Male : 1960 Arrival Date: 08/15/2024 Time: 16:37 Bed 8 Private MD: Diagnosis: Abdominal pain, unspecified;Nausea;Constipation, unspecified Presentation: 08/15 16:50 Chief complaint: Patient states: Lower abdominal pain starts on the left and radiates cm10 to the right. Coronavirus screen: Client denies travel out of the [place] in the last 14 days. Ebola Screen: Patient denies travel to an Ebola-affected area in the 21 days before illness onset. Initial Sepsis Screen: Does the patient meet any 2 criteria? No. Patient's initial sepsis screen is negative. Does the patient have a suspected source of infection? No. Patient's initial sepsis screen is negative. Risk Assessment: Do you want to hurt yourself or someone else? Patient reports no desire to harm self or others. Onset of symptoms was August 15, 2024. 16:50 Method Of Arrival: Wheelchair cm10 16:50 Acuity: RUI 3 cm10 Triage Assessment: 16:52 General: Appears in no apparent distress. uncomfortable, Behavior is calm, cooperative. cm10 Neuro: No deficits noted. Level of Consciousness is awake, alert, obeys commands, Oriented to person, place, time, situation, Appropriate for age. Respiratory: No deficits noted. Airway is patent Respiratory effort is even, unlabored, Respiratory pattern is regular, symmetrical. Historical: - Allergies: 16:49 Cephalexin Monohydrate; bp 16:49 Iodine; bp 16:49 Levofloxacin; bp 16:49 Morphine; bp - Home Meds: 16:49 baclofen 10 mg Oral tab 1 tab daily [Active]; lamotrigine 100 mg Oral tab 1 tab 2 times bp per day [Active]; levetiracetam 750 mg Oral tab 1 tab 2 times per day [Active]; potassium chloride 20 mEq Oral TbER 1 tab once daily [Active]; Protonix 40 mg Oral TbEC 1 tab once daily [Active]; - PMHx: 16:49 Seizures; CVA; Hernia; R side deficits r/t CVA; bp - Immunization history:: Adult Immunizations up to date. - Infectious Disease History:: Denies. - Social history:: Smoking status: unknown. Screenin:48 [facility] ED Fall Risk Assessment (Adult) History of falling in the last 3 months, bp including since admission No falls in past 3 months (0 pts) Confusion or Disorientation No (0 pts) Intoxicated or Sedated No (0 pts) Impaired Gait Yes (1 pt) Mobility Assist Device Used Yes (1 pt) Altered Elimination Yes (1 pt) Score/Fall Risk Level 3 or more points = High Risk Oriented to surroundings. Abuse screen: Denies threats or abuse. Denies injuries from another. Nutritional screening: No deficits noted. Tuberculosis screening: No symptoms or risk factors identified. Assessment: 17:22 Reassessment: PO CONTRAST COMPLETED. CT NOTIFIED. bp 19:11 Reassessment: Patient appears in no apparent distress at this time. Patient and/or bm8 family updated on plan of care and expected duration. Pain level reassessed. Patient is alert, oriented x 3, equal unlabored respirations, skin warm/dry/pink. Pain: Complains of pain in right lower quadrant and left lower quadrant Pain currently is 6 out of 10 on a pain scale. Quality of pain is described as aching. Neuro: Level of Consciousness is awake, alert, obeys commands, Oriented to person, place, time, situation, Appropriate for age. Cardiovascular: Denies chest pain, Capillary refill < 3 seconds in bilateral fingers Patient's skin is warm and dry. Respiratory: Airway is patent Respiratory effort is even, unlabored, Respiratory pattern is regular, symmetrical, Breath sounds are clear bilaterally. GI: Abdomen is round obese, Bowel sounds hypoactive in right lower quadrant and left lower quadrant Abdomen is tender to palpation in umbilical area, right lower quadrant and left lower quadrant Reports constipation. : No signs and/or symptoms were reported regarding the genitourinary system. EENT: No signs and/or symptoms were reported regarding the EENT system. Derm: No signs and/or symptoms reported regarding the dermatologic system. Musculoskeletal: No signs and/or symptoms reported regarding the musculoskeletal system. 20:23 Reassessment: Patient appears in no apparent distress at this time. No changes from bm8 previously documented assessment. Patient and/or family updated on plan of care and expected duration. Pain level reassessed. Patient is alert, oriented x 3, equal unlabored respirations, skin warm/dry/pink. Vital Signs: 16:50 BP 129 / 76; Pulse 62; Resp 18; Temp 98.3(O); Pulse Ox 99% on R/A; Weight 113.4 kg; cm10 Height 6 ft. 3 in. ; Pain 9/10; 19:11 BP 133 / 77; Pulse 67; Resp 18; Temp 98.3; Pulse Ox 99% ; Pain 6/10; bm8 20:23 BP 138 / 74; Pulse 65; Resp 18; Temp 98.3; Pulse Ox 97% ; Pain 6/10; bm8 16:50 Body Mass Index 31.25 (113.40 kg, 190.5 cm) cm10 16:50 Pain Scale: Adult cm10 19:11 Pain Scale: Adult bm8 20:23 Pain Scale: Adult bm8 [place] Score: 19:11 Eye Response: spontaneous(4). Motor Response: obeys commands(6). Verbal Response: bm8 oriented(5). Total: 15. 20:23 Eye Response: spontaneous(4). Motor Response: obeys commands(6). Verbal Response: bm8 oriented(5). Total: 15. ED Course: 16:39 Patient arrived in ED. am2 16:49 Aidan Puckett, KEL is Primary Nurse. bp 16:51 Triage completed. cm10 16:52 Arm band placed on right wrist. Patient placed in an exam room, on a stretcher. cm10 16:55 Ori Krause PA is PHCP. cp 16:55 Carlton Rudd MD is Attending Physician. cp 17:30 Missed attempt(s): 22 gauge in left forearm. Bleeding controlled, band aid applied, bp catheter tip intact. 17:48 Patient has correct armband on for positive identification. bp 18:03 Initial lab(s) drawn, by me, sent to lab. Inserted saline lock: 22 gauge in left bp antecubital area, using aseptic technique. Blood collected. Flushed with 10 mL NS. 19:11 Client placed on continuous cardiac and pulse oximetry monitoring. NIBP monitoring bm8 applied. Pulse ox on. NIBP on. Door closed. Noise minimized. Warm blanket given. Pillow given. Verbal reassurance given. Head of bed elevated. 19:11 No provider procedures requiring assistance completed. Patient maintains SpO2 bm8 saturation greater than 95% on room air. 19:30 Abdomen In Process Unspecified. EDMS 20:23 Provided Education on: post er care. bm8 20:23 IV discontinued, intact, bleeding controlled, No redness/swelling at site. Pressure bm8 dressing applied. Administered Medications: 18:02 Drug: metoCLOPramide IVP 10 mg IVP once; over 1 to 2 minutes Route: IVP; Site: left bp antecubital; 19:42 Follow up: Response: No adverse reaction bm8 18:02 Drug: Dicyclomine IM 20 mg IM once Route: IM; Site: right deltoid; bp 19:42 Follow up: Response: No adverse reaction bm8 18:02 Drug: NS 0.9% IV 500 ml 500 ml IV at 1 bolus once; to be given as a bolus over 60 bp minutes Volume: 500 ml; Route: IV; Rate: 1 bolus; Site: left antecubital; 19:42 Follow up: Response: No adverse reaction; IV Status: Completed infusion bm8 18:03 Drug: Lactulose PO 30 grams 45 ml PO once Volume: 45 ml; Route: PO; bp 19:42 Follow up: Response: No adverse reaction bm8 20:31 Not Given (Patient Refused): dulcolaxsuppository 10 mg DC once bm8 Medication: 19:11 VIS not applicable for this client. bm8 Outcome: 20:23 Discharged to home via wheelchair, bm8 20:23 Condition: stable 20:23 Discharge instructions given to patient, family, Instructed on discharge instructions, follow up and referral plans. no drinking with medication, no driving heavy equipment, medication usage, Demonstrated understanding of instructions, follow-up care, medications, Prescriptions given X 2, 20:25 Discharge ordered by . cp 20:31 Patient left the ED. bm8 Signatures: Dispatcher [employer] EDMS Ori Krause PA PA cp Moreno, Amanda am2 Aidan Puckett, RN RN bp Elli Abdalla, RN RN cm10 Wilberto Mercado, RN RN bm8 Corrections: (The following items were deleted from the chart) 20:31 20:23 Pulse 65bpm; Resp 18bpm; Pulse Ox 97%; Temp 98.3F; Pain 6/10, Adult; bm8 bm8
--- NOTE | 2024-08-15 20:25 | EDPHYS ---
Physician Documentation [facility] Name: Javier Barragan Age: 64 yrs Sex: Male : 1960 Arrival Date: 08/15/2024 Time: 16:37 Bed 8 Private MD: ED Physician Carlton Rudd HPI: 08/15 17:05 This 64 yrs old Male presents to ER via Wheelchair with complaints of Abdominal Pain. cp 17:05 The patient presents with abdominal pain that is diffuse. Onset: The symptoms/episode cp began/occurred yesterday. The symptoms do not radiate. Associated signs and symptoms: Pertinent positives: nausea. 17:05 The symptoms are described as constant. cp 17:05 Severity of pain: in the emergency department the pain is unchanged despite home cp interventions. Historical: - Allergies: 16:49 Cephalexin Monohydrate; bp 16:49 Iodine; bp 16:49 Levofloxacin; bp 16:49 Morphine; bp - Home Meds: 16:49 baclofen 10 mg Oral tab 1 tab daily [Active]; lamotrigine 100 mg Oral tab 1 tab 2 times bp per day [Active]; levetiracetam 750 mg Oral tab 1 tab 2 times per day [Active]; potassium chloride 20 mEq Oral TbER 1 tab once daily [Active]; Protonix 40 mg Oral TbEC 1 tab once daily [Active]; - PMHx: 16:49 Seizures; CVA; Hernia; R side deficits r/t CVA; bp - Immunization history:: Adult Immunizations up to date. - Infectious Disease History:: Denies. - Social history:: Smoking status: unknown. ROS: 17:10 Constitutional: Negative for body aches, chills, fever, poor PO intake, cp 17:10 Cardiovascular: Negative for chest pain, palpitations, cp 17:10 Respiratory: Negative for cough, shortness of breath, wheezing, 17:10 Abdomen/GI: Positive for abdominal pain, nausea, constipation, Negative for vomiting, diarrhea, black/tarry stool, rectal bleeding, 17:10 Eyes: Negative for injury, pain, redness, and discharge, cp 17:10 ENT: Negative for drainage from ear(s), ear pain, sore throat, difficulty swallowing, cp difficulty handling secretions, 17:10 Neuro: Negative for altered mental status, dizziness, headache, weakness, 17:10 All other systems are negative, Exam: 17:15 Constitutional: The patient appears in no acute distress, alert, awake, cp non-diaphoretic, non-toxic, well developed, well nourished, obese, 17:15 Head/Face: Normocephalic, atraumatic. cp 17:15 Eyes: Periorbital structures: appear normal, Conjunctiva: normal, no exudate, no injection, Sclera: no appreciated abnormality, Lids and lashes: appear normal, bilaterally, 17:15 ENT: External ear(s): are unremarkable, Nose: is normal, Mouth: Lips: moist, Oral mucosa: moist, Posterior pharynx: Airway: no evidence of obstruction, patent, 17:15 Chest/axilla: Inspection: normal, 17:15 Cardiovascular: Rate: normal, 17:15 Respiratory: the patient does not display signs of respiratory distress, Respirations: normal, no use of accessory muscles, no retractions, labored breathing, is not present, Breath sounds: are clear throughout, no decreased breath sounds, no stridor, no wheezing, 17:15 Abdomen/GI: Inspection: obese Bowel sounds: active, all quadrants, Palpation: soft, in all quadrants, mild abdominal tenderness, in the mid abdomen, rebound tenderness, is not appreciated, involuntary guarding, is not appreciated, 17:15 Back: pain, is absent, ROM is normal, 17:15 Neuro: Orientation: to person, place \T\ time. Mentation: is normal, Vital Signs: 16:50 BP 129 / 76; Pulse 62; Resp 18; Temp 98.3(O); Pulse Ox 99% on R/A; Weight 113.4 kg; cm10 Height 6 ft. 3 in. ; Pain 9/10; 19:11 BP 133 / 77; Pulse 67; Resp 18; Temp 98.3; Pulse Ox 99% ; Pain 6/10; bm8 20:23 BP 138 / 74; Pulse 65; Resp 18; Temp 98.3; Pulse Ox 97% ; Pain 6/10; bm8 16:50 Body Mass Index 31.25 (113.40 kg, 190.5 cm) cm10 16:50 Pain Scale: Adult cm10 19:11 Pain Scale: Adult bm8 20:23 Pain Scale: Adult bm8 Usama Coma Score: 19:11 Eye Response: spontaneous(4). Motor Response: obeys commands(6). Verbal Response: bm8 oriented(5). Total: 15. 20:23 Eye Response: spontaneous(4). Motor Response: obeys commands(6). Verbal Response: bm8 oriented(5). Total: 15. MDM: 20:25 Medical Screening Exam initiated cp 20:25 Data reviewed: vital signs, nurses notes, lab test result(s), radiologic studies, CT cp scan, and as a result, I will discharge patient. 20:25 Differential diagnosis: bowel obstruction, cholecystitis, Cholelithiasis, non-specific cp abd pain, pancreatitis, Peptic Ulcer Disease, Perf. Duodenal Ulcer, Perf. Gastric Ulcer, incarcerated hernia. I considered the following discharge prescriptions or medication management in the emergency department Medications were administered in the Emergency Department. See MAR. Counseling: I had a detailed discussion with the patient and/or guardian regarding the historical points, exam findings, and any diagnostic results supporting the discharge/admit diagnosis, lab results, radiology results, to return to the emergency department if symptoms worsen or persist or if there are any questions or concerns that arise at home. Response to treatment: the patient's symptoms have mildly improved after treatment, and as a result, I will discharge patient. Special discussion: Based on the patient's Hx, exam, and Dx evaluation, there is no indication for emergent surgery or inpatient Tx. It is understood by the patient/guardian that if the Sx's persist or worsen they need to return immediately for re-evaluation. 08/15 17:03 Order name: CBC with Diff; Complete Time: 19:35 cp 08/15 19:35 Interpretation: Normal except: PLT 147. cp 08/15 17:03 Order name: CMP; Complete Time: 19:35 cp 08/15 19:35 Interpretation: Normal except: CRE 0.67. cp 08/15 17:03 Order name: Lipase; Complete Time: 19:35 cp 08/15 19:35 Interpretation: Reviewed. cp 08/15 17:03 Order name: Urinalysis w/ reflexes; Complete Time: 19:35 cp 08/15 19:35 Interpretation: Normal except: UPH 7.5. cp 08/15 17:08 Order name: Abdomen ; Complete Time: 20:04 EDMS 08/15 20:05 Interpretation: Report reviewed. cp 08/15 17:03 Order name: IV Saline Lock; Complete Time: 18:39 cp 08/15 17:03 Order name: Labs collected and sent; Complete Time: 18:39 cp 08/15 20:05 Order name: PO challenge; Complete Time: 20:20 cp Administered Medications: 18:02 Drug: metoCLOPramide IVP 10 mg IVP once; over 1 to 2 minutes Route: IVP; Site: left bp antecubital; 19:42 Follow up: Response: No adverse reaction bm8 18:02 Drug: Dicyclomine IM 20 mg IM once Route: IM; Site: right deltoid; bp 19:42 Follow up: Response: No adverse reaction bm8 18:02 Drug: NS 0.9% IV 500 ml 500 ml IV at 1 bolus once; to be given as a bolus over 60 bp minutes Volume: 500 ml; Route: IV; Rate: 1 bolus; Site: left antecubital; 19:42 Follow up: Response: No adverse reaction; IV Status: Completed infusion bm8 18:03 Drug: Lactulose PO 30 grams 45 ml PO once Volume: 45 ml; Route: PO; bp 19:42 Follow up: Response: No adverse reaction bm8 20:31 Not Given (Patient Refused): dulcolaxsuppository 10 mg SC once bm8 Disposition Summary: 08/15/24 20:25 Discharge Ordered Notes: Location: Home cp Problem: new cp Symptoms: have improved cp Condition: Stable cp Diagnosis - Abdominal pain, unspecified cp - Nausea cp - Constipation, unspecified cp Followup: cp - With: Private Physician - When: 2 - 3 days - Reason: Worsening of condition Discharge Instructions: - Discharge Summary Sheet cp - Abdominal Pain, Adult cp - Constipation, Adult cp - Nausea, Adult cp Forms: - Medication Reconciliation Form cp - Antibiotic Education cp - Prescription Opioid Use cp - Patient Portal Instructions cp - Leadership Thank You Letter cp Prescriptions: - Reglan 10 mg Oral Tablet - take 1 tablet ORAL route every 6 hours take 30 minutes before meals and at cp bedtime; 20 tablet; Refills: 0, Product Selection Permitted Signatures: Dispatcher [employer] EDMS Ori Krause PA PA cp Peltier, Brian RN RN bp Wilberto Mercado RN RN bm8 Corrections: (The following items were deleted from the chart) 17:04 17:04 Abdomen Pelvis W [id number] ordered. EDMS EDMS
[2024-08-15 20:35] VITALS: TEMP 98.3
[2024-08-15 20:38] VITALS: BP 138/74; O2SAT 97
== END 2024-08-15 20:31 | disposition home or self-care (01) ==
LOC: ER 16:37
DX: K59.00 Constipation, unspecified (principal); R11.0 Nausea
CPT/HCPCS: 96361; 85025; 81001; 36415; 83690; 80053; 74176; 96372; 96374; 99284; J2765; J0500; J7040

== ENCOUNTER 2025-03-21 22:51 | Emergency (ER) | payer OTHER ==
[2025-03-21] MEDS ORDERED: KETOROLAC 10 MG TAB ONE (23:46)
[2025-03-21] MEDS ORDERED: FENTANYL CITR 100 MCG/2 ML ONE (23:47)
[2025-03-22] MEDS ORDERED: FENTANYL CITR 100 MCG/2 ML ONE (03:12)
--- NOTE | 2025-03-22 03:56 | RAD REPORT ---
CLINICAL HISTORY: right foot injury COMPARISON: None. TECHNIQUE: XR FOOT 3 OR MORE VIEWS RIGHT, XR TIBIA FIBULA RIGHT 03/21/2025 11:26 PM CDT FINDINGS: There is a displaced fracture of the medial malleolus. There is an oblique minimally displaced fractu re of the distal fibula. There is hallux valgus with degenerative changes throughout the IP joints. There is diffuse soft tissue swelling throughout the ankle and midfoot. IMPRESSION: Bimalleolar fractures. Electronically signed by: Dorian Dinero MD 03/22/2025 01:10 AM CDT RP Due to temporary technical issues with the PACS/Web[employer] reporting system, reports are being pardeep d by the in-house radiologist without review as a courtesy to ensure prompt reporting the interpreting radiologist is fully responsible for the content of the report. Transcribed Date/Time: 03/22/2025 3:56 AM
--- NOTE | 2025-03-22 03:56 | RAD REPORT ---
CLINICAL HISTORY: right foot injury COMPARISON: None. TECHNIQUE: XR FOOT 3 OR MORE VIEWS RIGHT, XR TIBIA FIBULA RIGHT 03/21/2025 11:26 PM CDT FINDINGS: There is a displaced fracture of the medial malleolus. There is an oblique minimally displaced fractu re of the distal fibula. There is hallux valgus with degenerative changes throughout the IP joints. There is diffuse soft tissue swelling throughout the ankle and midfoot. IMPRESSION: Bimalleolar fractures. Electronically signed by: Dorian Dinero MD 03/22/2025 01:10 AM CDT RP Due to temporary technical issues with the PACS/[employer]uan[employer] reporting system, reports are being pardeep d by the in-house radiologist without review as a courtesy to ensure prompt reporting the interpreting radiologist is fully responsible for the content of the report. Transcribed Date/Time: 03/22/2025 3:56 AM
--- NOTE | 2025-03-22 05:32 | RAD REPORT ---
CLINICAL HISTORY: Fall acute. COMPARISON: CT Head 04/30/2019 report only. TECHNIQUE: CT HEAD AND CERVICAL SPINE WITHOUT CONTRAST on 03/21/2025 11:22 PM CDT This exam was performed according to our departmental dose-optimization program, which includes autom ated exposure control, adjustment of the mA and/or kV according to patient size and/or use of iterative reconstruction technique. FINDINGS: Brain: There is no acute hemorrhage, mass effect or midline shift. There is moderate encephalomalacia throughout the left parietal lobe. There is no hydrocephalus. There is no significant volume loss for age. Left frontoparietal craniotomy was performed. Orbits and globes are unremarkable. The paranasal sinus es are clear. Mastoid air cells are clear. Cervical Spine: There is no acute fracture. Alignment is anatomic. There is moderate narrowing of the C4-5, C5-6, CT 6 7 and C7-T1 discs. Vertebral body heights are pre served. Soft tissues are unremarkable. IMPRESSION: No acute findings. Electronically signed by: Dorian Dinero MD 03/22/2025 01:08 AM CDT RP Due to temporary technical issues with the PACS/[employer] reporting system, reports are being pardeep d by the in-house radiologist without review as a courtesy to ensure prompt reporting the interpreting radiologist is fully responsible for the content of the report. Transcribed Date/Time: 03/22/2025 5:31 AM
--- NOTE | 2025-03-22 06:13 | EDPHYS ---
Physician Documentation [facility] Name: Javier Barragan Age: 64 yrs Sex: Male : 1960 Arrival Date: 03/21/2025 Time: 22:51 Bed 15 Private MD: ED Physician Taj Mercado HPI: 03/21 22:57 This 64 yrs old Male presents to ER via Unassigned with complaints of Fall sp4 Injury. 03/22 19:37 Patient is a very pleasant 64-year-old male with history of CVA and right-sided chronic sp4 hemiparesis presents with acute fall in the bathroom associated with head injury and a right ankle and right foot pain. Patient states he fell in the bathroom because of an posterior head contusion with posterior headache now and also significant pain in the right ankle and right foot. Patient is generally ambulatory with assistance and able to take care of himself at home.. Historical: - Allergies: 03/21 23:00 Morphine; tb4 23:00 Levofloxacin; tb4 23:00 Iodine; tb4 23:00 Cephalexin Monohydrate; tb4 - Home Meds: 23:00 baclofen 10 mg Oral tab 1 tab daily [Active]; lamotrigine 100 mg Oral tab 1 tab 2 times tb4 per day [Active]; levetiracetam 750 mg Oral tab 1 tab 2 times per day [Active]; potassium chloride 20 mEq Oral TbER 1 tab once daily [Active]; Protonix 40 mg Oral TbEC 1 tab once daily [Active]; - PMHx: 23:00 CVA; Hernia; R side deficits r/t CVA; Seizures; tb4 - Immunization history:: Adult Immunizations up to date. - Infectious Disease History:: Denies. - Immunization history: Last tetanus immunization: - up to date. - Social history:: Smoking status: Patient denies any tobacco usage or history of. Patient/guardian denies using alcohol, street drugs, IV drugs, tobacco products. - Family history:: not pertinent. ROS: 03/22 19:37 Constitutional: Negative for fever, chills, and weight loss, positive for acute fall, sp4 positive for head injury, positive for headache, positive for right ankle and foot pain All other systems are negative, Exam: 19:37 Constitutional: Patient is physically deconditioned male with chronic right-sided sp4 hemiparesis from prior CVA. Patient has right ankle and foot tenderness redness and swelling, chronic bilateral foot swelling and edema. Contractures of the right arm secondary to prior hemiparesis. Head/Face: Normocephalic, there is posterior scalp tenderness and posterior right occiput hematoma Eyes: Pupils equal round and reactive to light, extra-ocular motions intact. Lids and lashes normal. Conjunctiva and sclera are not injected. Cornea within normal limits. Periorbital areas with no swelling, redness, or edema. ENT: Nares patent. No nasal discharge, no septal abnormalities noted. Tympanic membranes are normal and external auditory canals are clear. Oropharynx with no redness, swelling, or masses, exudates, or evidence of obstruction, uvula midline. Mucous membranes moist. Neck: Trachea midline, no thyromegaly or masses palpated, and no cervical lymphadenopathy. Supple, full range of motion without nuchal rigidity, or vertebral point tenderness. Chest/axilla: Normal chest wall appearance and motion. Nontender with no deformity. No lesions are appreciated. Cardiovascular: Regular rate and rhythm with a normal S1 and S2. No gallops, murmurs, or rubs. No pulse deficits. Respiratory: Lungs have equal breath sounds bilaterally, clear to auscultation and percussion. No rales, rhonchi or wheezes noted. No increased work of breathing, no retractions or nasal flaring. Abdomen/GI: Soft, with normal bowel sounds. No distension or tympany. No guarding or rebound. No evidence of tenderness throughout. Back: No spinal tenderness. No costovertebral tenderness. Skin: Warm, dry with normal turgor. Normal color with no rashes, no lesions, and no evidence of cellulitis. MS/ Extremity: Pulses equal, no cyanosis. Chronic right-sided hemiparesis from prior CVA, chronic right-sided contractures from chronic hemiparesis. Nonambulatory on arrival. Moderate right ankle pain swelling tenderness. Moderate to right foot tenderness pain and swelling. Neuro: Awake and alert, GCS 15, oriented to person, place, time, and situation. Chronic hemiparesis from prior CVA. No new neurologic deficit. Psych: Awake, alert, with orientation to person, place and time. Behavior, mood, and affect are within normal limits Vital Signs: 03/21 22:56 BP 134 / 76; Pulse 79; Pulse Ox 97% ; Pain 03/11; tb4 23:08 BP 132 / 74; Pulse 69; Resp 19; Temp 98.2(O); Pulse Ox 97% on R/A; Weight 108.86 kg; tb4 Height 6 ft. 0 in. ; Pain 03/11; 03/22 00:04 BP 129 / 67; Pulse 66; Resp 18; Pulse Ox 99% on R/A; Pain 03/11; tb4 01:00 BP 121 / 70; Pulse 67; Resp 18; Pulse Ox 99% on R/A; Pain 12/09; tb4 03:00 BP 133 / 82; Pulse 77; Resp 19; Pulse Ox 98% on R/A; tb4 04:00 BP 138 / 75; Pulse 69; Resp 16; Pulse Ox 100% on R/A; tb4 04:52 BP 132 / 71; Pulse 80; Resp 19; Pulse Ox 97% on R/A; tb4 06:31 BP 139 / 73; Pulse 88; Resp 17; Pulse Ox 98% on R/A; tb4 03/21 23:08 Body Mass Index 32.55 (108.86 kg, 182.88 cm) tb4 03/21 22:56 Pain Scale: Adult tb4 23:08 Pain Scale: Adult tb4 03/22 00:04 Pain Scale: Adult tb4 01:00 Pain Scale: Adult tb4 [place] Coma Score: 01:24 Eye Response: spontaneous(4). Motor Response: obeys commands(6). Verbal Response: tb4 oriented(5). Total: 15. 19:37 Eye Response: spontaneous(4). Motor Response: obeys commands(6). Verbal Response: sp4 oriented(5). Total: 15. Trauma Score (Adult): 01:24 Eye Response: spontaneous(1); Verbal Response: oriented(1); Motor Response: obeys tb4 commands(2); Systolic BP: > 89 mm Hg(4); Respiratory Rate: 10 to 29 per min(4); Usama Score: 15; Trauma Score: 12 Procedures: 06:10 Splinting: Splint applied to right calf, right Achilles and right heel using Ortho 3D sp4 boot, applied by myself. Examined by me, post splint application: neurovascular intact, 2+ distal pulses palpable, brisk capillary refill noted, Patient tolerated well, Positive for acute bimalleolar fracture. Patient was given Ortho boot. Patient does not bear weight on this foot secondary to history of previous CVA. . MDM: 03/21 23:05 Medical Screening Exam initiated sp4 03/22 06:01 ED course: COMPARISON: None. TECHNIQUE: XR FOOT 3 OR MORE VIEWS RIGHT, XR TIBIA FIBULA sp4 RIGHT 03/21/2025 11:26 PM CDT FINDINGS: There is a displaced fracture of the medial malleolus. There is an oblique minimally displaced fracture of the distal fibula. There is hallux valgus with degenerative changes throughout the IP joints. There is diffuse soft tissue swelling throughout the ankle and midfoot. IMPRESSION: Bimalleolar fractures. . ED course: FINDINGS: There is a displaced fracture of the medial malleolus. There is an oblique minimally displaced fracture of the distal fibula. There is hallux valgus with degenerative changes throughout the IP joints. There is diffuse soft tissue swelling throughout the ankle and midfoot. IMPRESSION: Bimalleolar fractures. Electronically signed by: Dorian Dinero MD 03/22/2025 . ED course: FINDINGS: Brain: There is no acute hemorrhage, mass effect or midline shift. There is moderate encephalomalacia throughout the left parietal lobe. There is no hydrocephalus. There is no significant volume loss for age. Left frontoparietal craniotomy was performed. Orbits and globes are unremarkable. The paranasal sinuses are clear. Mastoid air cells are clear. Cervical Spine: There is no acute fracture. Alignment is anatomic. There is moderate narrowing of the C4-5, C5-6, CT 6 7 and C7-T1 discs. Vertebral body heights are preserved. Soft tissues are unremarkable. IMPRESSION: No acute findings. Electronically signed by: Dorian Dinero MD 03/22/2025 01:08 AM . 06:10 Differential diagnosis: abrasion, closed head injury, contusion, fracture, laceration, sp4 multiple trauma, sprain, strain. Data reviewed: vital signs, nurses notes. 03/21 23:22 Order name: CT Head C Spine sp4 03/21 23:26 Order name: Foot Right 3 View XRAY sp4 03/21 23:27 Order name: Tib Fib Right XRAY sp4 Administered Medications: 00:47 Drug: fentaNYL (PF) IVP 50 mcg IVP once Route: IVP; Site: left hand; tb4 01:29 Follow up: Response: No adverse reaction; Pain is decreased; RASS: Alert and Calm (0) tb4 00:47 Drug: Ketorolac PO 10 mg PO once Route: PO; tb4 01:29 Follow up: Response: No adverse reaction; Pain is decreased tb4 03:24 Drug: fentaNYL (PF) IVP 50 mcg IVP once Route: IVP; Site: left hand; tb4 04:52 Follow up: Response: No adverse reaction; Pain is decreased; RASS: Alert and Calm (0) tb4 03:24 Drug: Droperidol IVP 2.5 mg IVP once Route: IVP; Site: left hand; tb4 04:53 Follow up: Response: No adverse reaction; Pain is decreased tb4 06:29 Drug: traMADol PO 100 mg PO once Route: PO; tb4 06:46 Follow up: Response: No adverse reaction; Pain is decreased; RASS: Alert and Calm (0) tb4 06:29 Drug: Ondansetron PO 4 mg PO once Route: PO; tb4 06:45 Follow up: Response: No adverse reaction; Pain is decreased; RASS: Alert and Calm (0) tb4 Disposition: 19:44 Chart complete. sp4 Disposition Summary: 03/22/25 06:13 Discharge Ordered Notes: Wear right leg boot at all times until cleared by Orthopedist Location: Home sp4 Problem: new sp4 Symptoms: have improved sp4 Condition: Stable sp4 Diagnosis - Acute moderate head injury, acute right bimalleolar ankle fracture sp4 Followup: sp4 - With: Srikanth Mclean MD - When: 7 - 10 days - Reason: Recheck today's complaints Discharge Instructions: - Discharge Summary Sheet sp4 - Ankle Fracture, Ditr-oh-Syor sp4 Forms: - Patient Portal Instructions sp4 Prescriptions: - Cyclobenzaprine 10 mg Oral Tablet - take 1 tablet ORAL route every 8 hours As needed; 30 tablet; Refills: 0, sp4 Product Selection Permitted - Tramadol 50 mg Oral tablet - take 1 tablet ORAL route every 8 hours as needed; 20 tablet; Refills: 0, sp4 Product Selection Permitted Signatures: Dispatcher [employer] EDTaj Bustamante MD MD sp4 Janet Hall, RN RN tb4
--- NOTE | 2025-03-22 06:13 | ER ---
Nurse's Notes [facility] Name: Javier Barragan Age: 64 yrs Sex: Male : 1960 Arrival Date: 03/21/2025 Time: 22:51 Bed 15 Private MD: Diagnosis: Acute moderate head injury, acute right bimalleolar ankle fracture Presentation: 03/21 22:56 Chief complaint: EMS states: Patient fell in shower, hit right side of head, right knee tb4 and right ankle. Coronavirus screen: At this time, the client does not indicate any symptoms associated with coronavirus-19. Ebola Screen: No symptoms or risks identified at this time. Initial Sepsis Screen: Does the patient meet any 2 criteria? No. Patient's initial sepsis screen is negative. Does the patient have a suspected source of infection? No. Patient's initial sepsis screen is negative. Risk Assessment: Do you want to hurt yourself or someone else? Patient reports no desire to harm self or others. Onset of symptoms was March 21, 2025. Care prior to arrival: Glucose check: 84. Mechanism of Injury:. 22:56 Method Of Arrival: EMS: [facility] tb4 22:56 Acuity: RUI 3 tb4 03/22 06:47 Care prior to arrival: None. Trauma event details: Injury occurred: at home. tb4 06:49 Mechanism of Injury: Fall an unknown distance. tb4 Triage Assessment: 03/21 23:00 General: Appears uncomfortable, Behavior is calm, cooperative. Pain: Complains of pain tb4 in left frontal area, left side of the back of head, left temporal area and left occipital area Pain does not radiate. Pain currently is 10 out of 10 on a pain scale. Quality of pain is described as sharp, Pain began suddenly, Is continuous, Alleviated by nothing. EENT: Reports pain Pain is 10 out of 10 on a pain scale. Neuro: Level of Consciousness is awake, alert, obeys commands, Oriented to person, place, time, situation, [employer] are equal bilaterally Moves all extremities. Full function Gait is steady, Speech is normal, Facial symmetry appears normal. Respiratory: Respiratory effort is even, unlabored, Respiratory pattern is regular, symmetrical. GI: No signs and/or symptoms were reported involving the gastrointestinal system. : No signs and/or symptoms were reported regarding the genitourinary system. Derm: No signs and/or symptoms reported regarding the dermatologic system. Skin is intact, is healthy with good turgor, Skin is dry, Skin is normal, Skin temperature is warm. Musculoskeletal: Circulation, motion, and sensation intact. Range of motion: intact in all extremities. Historical: - Allergies: 23:00 Morphine; tb4 23:00 Levofloxacin; tb4 23:00 Iodine; tb4 23:00 Cephalexin Monohydrate; tb4 - Home Meds: 23:00 baclofen 10 mg Oral tab 1 tab daily [Active]; lamotrigine 100 mg Oral tab 1 tab 2 times tb4 per day [Active]; levetiracetam 750 mg Oral tab 1 tab 2 times per day [Active]; potassium chloride 20 mEq Oral TbER 1 tab once daily [Active]; Protonix 40 mg Oral TbEC 1 tab once daily [Active]; - PMHx: 23:00 CVA; Hernia; R side deficits r/t CVA; Seizures; tb4 - Immunization history:: Adult Immunizations up to date. - Infectious Disease History:: Denies. - Immunization history: Last tetanus immunization: - up to date. - Social history:: Smoking status: Patient denies any tobacco usage or history of. Patient/guardian denies using alcohol, street drugs, IV drugs, tobacco products. - Family history:: not pertinent. Screenin:07 [facility] ED Fall Risk Assessment (Adult) History of falling in the last 3 months, tb4 including since admission Yes- physiologic fall (2 pts) Confusion or Disorientation No (0 pts) Intoxicated or Sedated No (0 pts) Impaired Gait Yes (1 pt) Mobility Assist Device Used Yes (1 pt) Altered Elimination No (0 pt) Score/Fall Risk Level 3 or more points = High Risk Maintained a safe environment, Educated pt \T\ family on fall prevention, incl call for assistance when getting out of bed. Abuse screen: Denies threats or abuse. Denies injuries from another. Nutritional screening: No deficits noted. Tuberculosis screening: No symptoms or risk factors identified. Primary Survey: 03/22 01:24 NO uncontrolled hemorrhage observed. A: The client is awake and alert. The airway is tb4 patent. The client is alert. Airway: patent. Breathing/Chest: Spontaneous respiratory effort, equal unlabored respirations, breath sounds clear bilaterally, regular pattern, symmetrical chest rise and fall. Respiratory effort: spontaneous, unlabored, Breath sounds: clear, bilaterally. Respiratory pattern: regular, Chest inspection: symmetrical rise and fall of the chest. Circulation: No external hemorrhage present. Regular and strong central pulse, skin warm/dry/normal color. Pulses: Skin color: pink, Skin temperature: warm. Disability Client is alert. Reassessment Alertness and Airway: Awake and alert. The airway is patent. Airway Patent Breathing: Spontaneous respiratory effort, equal unlabored respirations, breath sounds clear bilaterally, regular pattern with symmetrical chest rise and fall. Respiratory effort Spontaneous Unlabored Breath sounds Clear Respiratory pattern Regular Chest inspection Symmetrical Circulation: No external hemorrhage noted. Regular and strong central pulse, skin warm/dry/normal color. Disability: Alert. Secondary Survey: 06:30 HEENT: No deficits noted. Gastrointestinal: No deficits noted. : No deficits noted. tb4 No signs and/or symptoms were reported regarding the genitourinary system. Musculoskeletal: Reports Pain is 6 out of 10 on a pain scale. Assessment: 03/21 23:10 General: Appears uncomfortable, Behavior is calm, cooperative. Pain: Complains of pain tb4 in Right knee and right ankle Pain does not radiate. Pain currently is 10 out of 10 on a pain scale. Quality of pain is described as aching, Pain began suddenly, Is continuous. Neuro: Level of Consciousness is awake, alert, obeys commands, Oriented to person, place, time, situation, Appropriate for age [employer]er are equal bilaterally Moves all extremities. Full function Weakness generalized. Gait is unsteady, patient uses a wheel chair. Speech is normal, Facial symmetry appears normal. Cardiovascular: Patient's skin is warm and dry. Respiratory: Respiratory effort is even, unlabored, Respiratory pattern is regular, symmetrical. GI: No signs and/or symptoms were reported involving the gastrointestinal system. : No signs and/or symptoms were reported regarding the genitourinary system. Derm: No signs and/or symptoms reported regarding the dermatologic system. Skin is intact, is healthy with good turgor, Skin is dry, Skin is normal, Skin temperature is warm cool. Musculoskeletal: Circulation, motion, and sensation intact. Range of motion: limited in lower extremity. 03/22 05:30 Reassessment: Patient refused to keep on his blood pressure and pulse ox monitoring. He tb4 is currently sitting in a wheelchair next to his bed. Patient use the rest room once. Vital Signs: 03/21 22:56 BP 134 / 76; Pulse 79; Pulse Ox 97% ; Pain 03/11; tb4 23:08 BP 132 / 74; Pulse 69; Resp 19; Temp 98.2(O); Pulse Ox 97% on R/A; Weight 108.86 kg; tb4 Height 6 ft. 0 in. ; Pain 03/11; 03/22 00:04 BP 129 / 67; Pulse 66; Resp 18; Pulse Ox 99% on R/A; Pain 03/11; tb4 01:00 BP 121 / 70; Pulse 67; Resp 18; Pulse Ox 99% on R/A; Pain 12/09; tb4 03:00 BP 133 / 82; Pulse 77; Resp 19; Pulse Ox 98% on R/A; tb4 04:00 BP 138 / 75; Pulse 69; Resp 16; Pulse Ox 100% on R/A; tb4 04:52 BP 132 / 71; Pulse 80; Resp 19; Pulse Ox 97% on R/A; tb4 06:31 BP 139 / 73; Pulse 88; Resp 17; Pulse Ox 98% on R/A; tb4 03/21 23:08 Body Mass Index 32.55 (108.86 kg, 182.88 cm) tb4 03/21 22:56 Pain Scale: Adult tb4 23:08 Pain Scale: Adult tb4 03/22 00:04 Pain Scale: Adult tb4 01:00 Pain Scale: Adult tb4 Rogers Coma Score: 01:24 Eye Response: spontaneous(4). Motor Response: obeys commands(6). Verbal Response: tb4 oriented(5). Total: 15. 19:37 Eye Response: spontaneous(4). Motor Response: obeys commands(6). Verbal Response: sp4 oriented(5). Total: 15. Trauma Score (Adult): 01:24 Eye Response: spontaneous(1); Verbal Response: oriented(1); Motor Response: obeys tb4 commands(2); Systolic BP: > 89 mm Hg(4); Respiratory Rate: 10 to 29 per min(4); Rogers Score: 15; Trauma Score: 12 ED Course: 03/21 22:53 Patient arrived in ED. cp4 22:57 Taj Mercado MD is Attending Physician. sp4 23:00 Triage completed. tb4 23:00 Arm band placed on right wrist. tb4 23:07 Patient has correct armband on for positive identification. Call light in reach. Side tb4 rails up X 1. Adult w/ patient. Client placed on continuous cardiac and pulse oximetry monitoring. NIBP monitoring applied. Door closed. Warm blanket given. 23:58 CT Head C Spine In Process Unspecified. EDMS 03/22 00:04 No provider procedures requiring assistance completed. X-ray(s) taken. CT Scan. tb4 00:42 Foot Right 3 View XRAY In Process Unspecified. EDMS 00:42 Tib Fib Right XRAY In Process Unspecified. EDMS 01:02 Inserted saline lock: 22 gauge in left hand, using aseptic technique. Flushed with 10 oe mL NS. 01:24 Patient maintains SpO2 saturation greater than 95% on room air. tb4 06:12 Srikanth Mclean MD is Referral Physician. sp4 06:32 Provided Education on: Take medications as prescribed. tb4 06:32 Ortho shoe applied to right foot. tb4 06:46 IV discontinued, intact, bleeding controlled, No redness/swelling at site. Pressure tb4 dressing applied. 06:49 Thermoregulation: N/A. tb4 Administered Medications: 00:47 Drug: fentaNYL (PF) IVP 50 mcg IVP once Route: IVP; Site: left hand; tb4 01:29 Follow up: Response: No adverse reaction; Pain is decreased; RASS: Alert and Calm (0) tb4 00:47 Drug: Ketorolac PO 10 mg PO once Route: PO; tb4 01:29 Follow up: Response: No adverse reaction; Pain is decreased tb4 03:24 Drug: fentaNYL (PF) IVP 50 mcg IVP once Route: IVP; Site: left hand; tb4 04:52 Follow up: Response: No adverse reaction; Pain is decreased; RASS: Alert and Calm (0) tb4 03:24 Drug: Droperidol IVP 2.5 mg IVP once Route: IVP; Site: left hand; tb4 04:53 Follow up: Response: No adverse reaction; Pain is decreased tb4 06:29 Drug: traMADol PO 100 mg PO once Route: PO; tb4 06:46 Follow up: Response: No adverse reaction; Pain is decreased; RASS: Alert and Calm (0) tb4 06:29 Drug: Ondansetron PO 4 mg PO once Route: PO; tb4 06:45 Follow up: Response: No adverse reaction; Pain is decreased; RASS: Alert and Calm (0) tb4 Medication: 03/21 23:07 VIS not applicable for this client. tb4 Intake: 03/22 06:47 PO: 300ml (Water); Total: 300ml. tb4 Outcome: 06:13 Discharge ordered by . sp4 06:46 Discharged to home ambulatory, with family, tb4 06:46 Condition: stable 06:46 Discharge instructions given to patient, family, Instructed on discharge instructions, follow up and referral plans. Demonstrated understanding of instructions, follow-up care, medications, Prescriptions given X 2, 06:49 Patient's length of stay was not longer than 2 hours. tb4 06:50 Patient left the ED. tb4 Signatures: Dispatcher [employer] EDMS Jason Bingham Sergey, MD MD sp4 Shannan Valladares 4 Janet Hall, RN RN tb4 Corrections: (The following items were deleted from the chart) 03/21 23:10 23:08 BP 134 / 76; Pulse 79bpm; Pulse Ox 97% RA; tb4 tb4
[2025-03-22] MEDS ORDERED: ONDANSETRON 4 MG (ODT) TAB ONE (06:20)
[2025-03-22] MEDS ORDERED: TRAMADOL HCL 50 MG TAB ONE (06:21)
[2025-03-22 14:14] VITALS: TEMP 98.2
[2025-03-22 14:21] VITALS: BP 139/73; O2SAT 98
== END 2025-03-22 06:50 | disposition home or self-care (01) ==
LOC: ER 22:51
DX: S00.83XA Contusion of other part of head, initial encounter (principal); S82.841A Displaced bimalleolar fracture of right lower leg, initial encounter for closed fracture; W18.30XA Fall on same level, unspecified, initial encounter
CPT/HCPCS: 70450; 72125; 73630; 73590; Q0162; J3010 ×2; J1790; 96374; 96375; 99285